=== PATIENT | male | born 1980 | race Caucasian/White ===

== ENCOUNTER → 2016-03-26 | Outpatient (CLI) | payer OTHER ==
--- NOTE | 2016-03-26 15:23 | XR ---
EXAMINATION TYPE: XR foot complete LT DATE OF EXAM: 03/26/2016 3:18 PM CLINICAL HISTORY: pain TECHNIQUE: Frontal, lateral and oblique images of the left foot are obtained. COMPARISON: 01/30/2016 FINDINGS: Postoperative changes of osteotomy again noted involving all 5 digits. K wires have been r emoved from the second and third digits. Fixation plate and screws are noted at the first metatarsoph alangeal joint. Alignment is anatomic. There is no acute fracture/dislocation evident. The joint spac es appear within normal limits. The overlying soft tissue appears unremarkable. IMPRESSION: Postoperative changes as noted.
== END | disposition home or self-care (01) ==
LOC: RADXRMAIN 15:05
PROVIDERS: ATTEND Internal Medicine
DX: M79.672 Pain in left foot (principal); Z98.890 Other specified postprocedural states

== ENCOUNTER 2017-03-31 10:35 | Emergency (ER) | payer OTHER ==
[2017-03-31 10:51] VITALS: TEMP 97.4
[2017-03-31] MEDS ORDERED: KETOROLAC 60 MG/2 ML VIAL IVP STA (11:27)
[2017-03-31] MEDS ORDERED: PROMETHAZINE INJ 25 MG/ML 1 ML VIAL IVPB STA (11:27)
[2017-03-31] MEDS ORDERED: methylPREDNISolone SOD SUCCI 125 MG/2 ML VIAL IV STA (11:27)
[2017-03-31] MEDS ORDERED: diphenhydrAMINE 50 MG/ML 1 ML VIAL IVP STA (11:27)
[2017-03-31] MEDS ORDERED: PROMETHAZINE INJ 25 MG in SODIUM CHLORIDE 0.9% 50 ML IVPB STA (11:30)
--- NOTE | 2017-03-31 11:31 | ED ---
General Adult HPI - General Chief complaint: Headache Stated complaint: Headache Time Seen by Provider: 03/31/17 10:45 Source: patient, RN notes reviewed Mode of arrival: ambulatory Limitations: no limitations - History of Present Illness Initial comments: This is a 36-year-old male who presents emergency department stating that he has had an intermittent headache for months now. Patient states she was here proximal one month ago did get a CAT scan at that time it was negative. Patient states since then he has developed some ear pain bilaterally when saw an urgent care with a flushed in his ears but since then his ear pain is gotten progressively worse. Patient states that he has been put on amoxicillin but that is not improved his symptoms at all. Patient states when he coughs or sneezes he can feels it popping it hurts intensely. Patient states it's more of a frontal headache at this point time. Patient states he also feels very congested. Patient denies any fever chills. Patient does have some tenderness to palpation of his forehead. - Related Data Previous Rx's Medication Instructions Recorded Amoxicillin/Potassium Clav 1 each PO Q12HR #28 tab 03/31/17 [Augmentin 875-125 Tablet] predniSONE 40 mg PO DAILY #12 tab 03/31/17 Allergies Allergy/AdvReac Type Severity Reaction Status Date / Time No Known Allergies Allergy Verified 03/31/17 11:05 Review of Systems ROS Statement: Those systems with pertinent positive or pertinent negative responses have been documented in the HPI. ROS Other: All systems not noted in ROS Statement are negative. Past Medical History Past Medical History: No Reported History Additional Past Medical History / Comment(s): heat stroke summer 2013, migraines History of Any Multi-Drug Resistant Organisms: None Reported Past Surgical History: Orthopedic Surgery, Tonsillectomy Additional Past Surgical History / Comment(s): left foot surgery Past Psychological History: Anxiety, Depression Smoking Status: Current every day smoker Past Alcohol Use History: Occasional Past Drug Use History: None Reported General Exam - General Exam Comments Initial Comments: GENERAL: Patient is well-developed and well-nourished. Patient is nontoxic and well- hydrated and is in moderate distress. Frontal sinuses are tender to palpation ENT: Neck is soft and supple. No significant lymphadenopathy is noted. Oropharynx is clear. Moist mucous membranes. Neck has full range of motion without eliciting any pain. Both TMs are bulging and erythematous more so on the left than the right EYES: The sclera were anicteric and conjunctiva were pink and moist. Extraocular movements were intact and pupils were equal round and reactive to light. Eyelids were unremarkable. PULMONARY: Unlabored respirations. Good breath sounds bilaterally. No audible rales rhonchi or wheezing was noted. CARDIOVASCULAR: There is a regular rate and rhythm without any murmurs gallops or rubs. ABDOMEN: Soft and nontender with normal bowel sounds. No palpable organomegaly was noted. There is no palpable pulsatile mass. SKIN: Skin is clear with no lesions or rashes and otherwise unremarkable. NEUROLOGIC: Patient is alert and oriented x3. Cranial nerves II through XII are grossly intact. Motor and sensory are also intact. Normal speech, volume and content. Symmetrical smile. MUSCULOSKELETAL: Normal extremities with adequate strength and full range of motion. LYMPHATICS: No significant lymphadenopathy is noted PSYCHIATRIC: Normal psychiatric evaluation. Normal interpersonal interactions appears functionally intact in deals appropriately with others. No signs of depression. No signs of anxiety. Limitations: no limitations Course Vital Signs 03/31/17 03/31/17 10:47 13:00 Temperature 97.4 F L Pulse Rate 86 55 L Respiratory 18 16 Rate Blood Pressure 148/83 132/58 O2 Sat by Pulse 98 98 Oximetry Medical Decision Making - Medical Decision Making I will back into reevaluate the patient his headache was considerably better at this point. Disposition Clinical Impression: Sinusitis Disposition: HOME SELF-CARE Condition: Good Instructions: Sinusitis (ED) Prescriptions: Amoxicillin/Potassium Clav [Augmentin 875-125 Tablet] 1 each PO Q12HR #28 tab predniSONE 40 mg PO DAILY #12 tab Referrals: Miah Mcguire MD [Primary Care Provider] - 1-2 days Time of Disposition: 13:10
[2017-03-31 13:04] VITALS: BP 132/58; PULSE 55; RESP 16
== END 2017-03-31 13:22 | disposition home or self-care (01) ==
LOC: EC 10:35
DX: J32.9 Chronic sinusitis, unspecified (principal); F17.200 Nicotine dependence, unspecified, uncomplicated; Z86.69 Personal history of other diseases of the nervous system and sense organs
CPT/HCPCS: 99283; 96374; 96375 ×3; J1200; J2550; J2930; J1885

== ENCOUNTER 2017-08-01 21:08 | Emergency (ER) | payer OTHER ==
[2017-08-01] MEDS ORDERED: SODIUM CHLORIDE 0.9% 1,000 ML IV STA (21:45)
[2017-08-01] MEDS ORDERED: MORPHINE SULFATE 2 MG/ML SYRINGE IV STA (21:45)
[2017-08-01] MEDS ORDERED: ONDANSETRON 4 MG/2 ML VIAL IVP STA (21:45)
[2017-08-01 22:01] LABS: Basophils # (A) 0.1 k/uL (0-0.2); Basophils % (A) 1 %; Eosinophils # (A) 0.5 k/uL (0-0.7); Eosinophils % (A) 4 %; HCT 45.2 % (39.0-53.0); HGB 15.4 gm/dL (13.0-17.5); Lymphocytes # (A) 2.7 k/uL (1.0-4.8); Lymphocytes % (A) 22 %; MCH 30.9 pg (25.0-35.0); MCV 90.8 fL (80.0-100.0); Mean Platelet Volume 7.6; Monocytes # (A) 0.8 k/uL (0-1.0); Monocytes % (A) 6 %; Neutrophils # (A) 7.7 k/uL (1.3-7.7); Neutrophils % (A) 65 %; Platelet Count 258 k/uL (150-450); RBC 4.98 m/uL (4.30-5.90); RDW 13.3 % (11.5-15.5)
[2017-08-01 22:15] LABS: ALT 43 U/L (21-72); AST 29 U/L (17-59); Alkaline Phosphatase 59 U/L (38-126); Amylase 40 U/L (30-110); Anion Gap 13 mmol/L; Blood Urea Nitrogen 19 mg/dL (9-20); Calcium 9.3 mg/dL (8.4-10.2); Carbon Dioxide 24 mmol/L (22-30); Chloride 105 mmol/L (98-107); Glucose 90 mg/dL (74-99); Lipase 54 U/L (23-300); Potassium 4.1 mmol/L (3.5-5.1); Sodium 142 mmol/L (137-145); Total Bilirubin 0.6 mg/dL (0.2-1.3); Total Protein 6.3 g/dL (6.3-8.2)
--- NOTE | 2017-08-01 22:15 | XR ---
EXAMINATION TYPE: XR KUB 2V DATE OF EXAM: 08/01/2017 COMPARISON: NONE HISTORY: Left lower quadrant pain and bloating TECHNIQUE: 2 upright views FINDINGS: There is no pneumoperitoneum. No pneumatosis. The bowel gas pattern is normal. The visualized lung bases and pleural spaces are negative. The abdominopelvic skeletal structures and soft tissues are unremarkable. IMPRESSION: No acute radiographic process.
[2017-08-01 22:41] LABS: Appearance,Urine Clear (Clear); Bilirubin,Urine Negative (Negative); Blood,Urine Negative (Negative); Color,Urine Yellow; Glucose,Urine (UA) Negative (Negative); Ketones,Urine Trace (Negative); Leukocyte Esterase,Urine Negative (Negative); Nitrite,Urine Negative (Negative); Protein,Urine Negative (Negative); Specific Gravity,Urine 1.022 (1.001-1.035); Urobilinogen,Urine <2.0 mg/dL (<2.0)
[2017-08-01 23:23] VITALS: RESP 18
[2017-08-01] MEDS ORDERED: KETOROLAC 30 MG/ML 1 ML VIAL IVP STA (23:45)
--- NOTE | 2017-08-01 23:52 | CT ---
EXAM: CT Abdomen and Pelvis With Intravenous Contrast CLINICAL HISTORY: Left lower quadrant pain TECHNIQUE: Axial computed tomography images of the abdomen and pelvis with intravenous contrast. CTDI is 14.5, 14.2 mGy and DLP is 1228.1 mGy-cm. This CT exam was performed using one or more of the following dose reduction techniques: automated exposure control, adjustment of the mA and/or kV according to patient size, and/or use of iterative reconstruction technique. COMPARISON: CT abdomen and pelvis dated 12/24/2016 FINDINGS: Lung bases: Unremarkable. No mass. No consolidation. ABDOMEN: Liver: Decreased attenuation of the liver which may be phase of IV contrast versus hepatic steatosis. Gallbladder and bile ducts: Unremarkable. Pancreas: Unremarkable. Spleen: Unremarkable. Adrenals: Unremarkable. Kidneys and ureters: Unremarkable. Stomach and bowel: Mildly prominent fluid-filled loops of small bowel seen within the left upper quadrant. Findings may represent nonspecific enteritis. Noninflamed colonic diverticulosis. PELVIS: Appendix: Appendix is unremarkable. Bladder: Unremarkable. Reproductive: Unremarkable as visualized. ABDOMEN and PELVIS: Intraperitoneal space: Unremarkable. Bones/joints: No acute fracture. No dislocation. Soft tissues: Unremarkable. Vasculature: Unremarkable. No abdominal aortic aneurysm. Lymph nodes: Unremarkable. IMPRESSION: Mildly prominent fluid-filled loops of small bowel seen within the left upper quadrant. Findings may represent nonspecific enteritis.
[2017-08-01] MEDS ORDERED: DICYCLOMINE 10 MG/ML 2 ML AMP IM STA (23:55)
--- NOTE | 2017-08-01 23:57 | ED ---
Abdominal Pain HPI - General Chief Complaint: Abdominal Pain Stated Complaint: LLQ pain Time Seen by Provider: 08/01/17 21:32 Source: patient Mode of arrival: ambulatory Limitations: no limitations - History of Present Illness Initial Comments: 36-year-old male patient presents to the emergency department today for evaluation of left-sided abdominal pain. Patient states this started this morning. Patient states he feels bloated and has a lot of gas. Patient states that when he burps or has flatulence that it relieves the pain for a short time but then it comes right back. Patient describes the pain is sharp and stabbing. He denies any radiation of the pain to his back. Denies any fevers or chills. He denies any nausea or vomiting. Patient states he did have one episode of diarrhea this morning. Denies any hematochezia or melena with this. Denies any hematuria, dysuria, urinary frequency, urinary urgency. He denies any radiation of the pain to his groin or testicles. Patient has had no previous abdominal surgeries. Patient denies any recent rash, shortness breath , chest pain, back pain, numbness, tingling, dizziness, weakness, headache, visual changes, or any other complaints. - Related Data Previous Rx's Medication Instructions Recorded Amoxicillin/Potassium Clav 1 each PO Q12HR #28 tab 03/31/17 [Augmentin 875-125 Tablet] predniSONE 40 mg PO DAILY #12 tab 03/31/17 Dicyclomine [Bentyl] 20 mg PO QID #10 tablet 08/01/17 Allergies Allergy/AdvReac Type Severity Reaction Status Date / Time No Known Allergies Allergy Verified 08/01/17 21:31 Review of Systems ROS Statement: Those systems with pertinent positive or pertinent negative responses have been documented in the HPI. ROS Other: All systems not noted in ROS Statement are negative. Past Medical History Past Medical History: No Reported History Additional Past Medical History / Comment(s): heat stroke summer 2013, migraines History of Any Multi-Drug Resistant Organisms: None Reported Past Surgical History: Orthopedic Surgery, Tonsillectomy Additional Past Surgical History / Comment(s): left foot surgery Past Psychological History: Anxiety, Depression Smoking Status: Current every day smoker Past Alcohol Use History: Occasional Past Drug Use History: None Reported General Exam Limitations: no limitations General appearance: alert, in no apparent distress, other (This is a well- developed, well-nourished, adult male patient in no acute distress. Vital signs upon presentation are temperature 98.2F, pulse 99, respirations 20, blood pressure 166/87, pulse ox 99% on room air.) Eye exam: Present: normal appearance, PERRL, EOMI. Absent: scleral icterus, conjunctival injection, periorbital swelling ENT exam: Present: normal exam, normal oropharynx, mucous membranes moist Respiratory exam: Present: normal lung sounds bilaterally. Absent: respiratory distress, wheezes, rales, rhonchi, stridor Cardiovascular Exam: Present: regular rate, normal rhythm, normal heart sounds. Absent: systolic murmur, diastolic murmur, rubs, gallop, clicks GI/Abdominal exam: Present: soft, tenderness (Left-sided abdominal tenderness), normal bowel sounds. Absent: distended, guarding, rebound, rigid Neurological exam: Present: alert, oriented X3, CN II-XII intact Psychiatric exam: Present: normal affect, normal mood Skin exam: Present: warm, dry, intact, normal color. Absent: rash Course Vital Signs 08/01/17 08/01/17 08/02/17 21:28 23:22 00:27 Temperature 98.2 F 97.3 F L 97.1 F L Pulse Rate 99 83 74 Respiratory 20 18 18 Rate Blood Pressure 166/87 116/60 101/56 O2 Sat by Pulse 99 98 97 Oximetry Medical Decision Making - Medical Decision Making 36-year-old male patient presented to the emergency department today for evaluation of left-sided abdominal pain. Physical examination did reveal some left-sided abdominal tenderness. Labs reviewed and showed an elevated white blood cell count at 12.0. Patient did have an episode of diarrhea this morning KUB x-ray of the abdomen was unremarkable. CT the abdomen and pelvis was obtained to rule out diverticulitis. CT did show mildly distended fluid-filled loops of bowel left upper quadrant consistent with a enteritis. I did discuss findings and results with the patient. He was instructed to increase fluids and rest. He'll be given a prescription for Bentyl area is instructed to follow -up with his primary care physician for recheck in 1-2 days. Return parameters discussed in detail. He verbalizes understanding and agrees with this plan. - Lab Data Result diagrams: 08/01/17 21:42 08/01/17 21:42 Lab Results 08/01/17 08/01/17 08/01/17 Range/Units 21:42 21:42 21:50 WBC 12.0 H (3.8-10.6) k/uL RBC 4.98 (4.30-5.90) m/uL Hgb 15.4 (13.0-17.5) gm/dL Hct 45.2 (39.0-53.0) % MCV 90.8 (80.0-100.0) fL MCH 30.9 (25.0-35.0) pg MCHC 34.0 (31.0-37.0) g/dL RDW 13.3 (11.5-15.5) % Plt Count 258 (150-450) k/uL Neutrophils % 65 % Lymphocytes % 22 % Monocytes % 6 % Eosinophils % 4 % Basophils % 1 % Neutrophils # 7.7 (1.3-7.7) k/uL Lymphocytes # 2.7 (1.0-4.8) k/uL Monocytes # 0.8 (0-1.0) k/uL Eosinophils # 0.5 (0-0.7) k/uL Basophils # 0.1 (0-0.2) k/uL Sodium 142 (137-145) mmol/L Potassium 4.1 (3.5-5.1) mmol/L Chloride 105 (98-107) mmol/L Carbon Dioxide 24 (22-30) mmol/L Anion Gap 13 mmol/L BUN 19 (9-20) mg/dL Creatinine 0.90 (0.66-1.25) mg/dL Est GFR (CKD-EPI)AfAm >90 (>60 ml/min/1.73 sqM) Est GFR (CKD-EPI)NonAf >90 (>60 ml/min/1.73 sqM) Glucose 90 (74-99) mg/dL Calcium 9.3 (8.4-10.2) mg/dL Total Bilirubin 0.6 (0.2-1.3) mg/dL AST 29 (17-59) U/L ALT 43 (21-72) U/L Alkaline Phosphatase 59 (38-126) U/L Total Protein 6.3 (6.3-8.2) g/dL Albumin 4.0 (3.5-5.0) g/dL Amylase 40 (30-110) U/L Lipase 54 (23-300) U/L Urine Color Yellow Urine Appearance Clear (Clear) Urine pH 6.0 (5.0-8.0) Ur Specific [place] 1.022 (1.001-1.035) Urine Protein Negative (Negative) Urine Glucose (UA) Negative (Negative) Urine Ketones Trace H (Negative) Urine Blood Negative (Negative) Urine Nitrite Negative (Negative) Urine Bilirubin Negative (Negative) Urine Urobilinogen <2.0 (<2.0) mg/dL Ur Leukocyte Esterase Negative (Negative) - Radiology Data Radiology results: report reviewed, image reviewed 2 views of the abdomen are obtained. Report was reviewed in its entirety. Impression by Dr. Honorio Adams shows no acute radiographic process. CT of the abdomen and pelvis was obtained. Report was reviewed in its entirety. Impression by Dr. Naik show some mildly prominent fluid filled loops of small bowel seen within the left upper quadrant. Findings may represent nonspecific enteritis. Disposition Clinical Impression: Enteritis Disposition: HOME SELF-CARE Condition: Good Instructions: Enteritis (ED) Additional Instructions: Take medications as directed. Increase her fluids. Follow-up with her primary care physician for recheck in 1-2 days. Return here immediately for any new, worsening, or concerning symptoms. Prescriptions: Dicyclomine [Bentyl] 20 mg PO QID #10 tablet Is patient prescribed a controlled substance at d/c from ED?: No Referrals: Miah Mcguire MD [Primary Care Provider] - 1-2 days Time of Disposition: 23:56
[2017-08-02 00:31] VITALS: BP 101/56; PULSE 74; TEMP 97.1
== END 2017-08-02 00:30 | disposition home or self-care (01) ==
LOC: EC 21:08
DX: K52.9 Noninfective gastroenteritis and colitis, unspecified (principal); D72.829 Elevated white blood cell count, unspecified; F17.200 Nicotine dependence, unspecified, uncomplicated
CPT/HCPCS: 36415; 80053; 82150; 83690; 85025; 81003; 74018; 74177; 99284; 96374; 96375 ×2; 96361; 96372; J0500; J2405; J1885; J2270; Q9967

== ENCOUNTER 2018-01-28 06:40 | Emergency (ER) | payer OTHER ==
[2018-01-28 06:48] VITALS: PULSE 79; RESP 18; TEMP 98.2
[2018-01-28] MEDS ORDERED: IBUPROFEN 800 MG TAB PO STA (07:14)
[2018-01-28] MEDS ORDERED: DEXAMETHASONE SOD PHOSPHATE 10 MG/ML 1 ML VIAL IV STA (07:14)
--- NOTE | 2018-01-28 07:18 | ED ---
General Adult HPI - General Chief complaint: Upper Respiratory Infection Stated complaint: Chest Presure Source: patient Mode of arrival: ambulatory - History of Present Illness Initial comments: Dictation was produced using [employer] dictation software. please excuse any grammatical, word or spelling errors. Chief Complaint: 37-year-old male witha past medical history presents with generalized malaise, productive cough History of Present Illness: Is a 37-year-old male states she's been having worsening symptoms or the past week. Patient states his symptoms include productive cough, generalized malaise and difficulty in breathing. Patient states he is also having exertional dyspnea. Patient states he's been feeling feverish and chills. Patient does have history of incarceration however he states he did get SHOTS for tuberculosis. Patient was was at work today however he is feeling ill and came to the emergency department. The ROS documented in this emergency department record has been reviewed and confirmed by me. Those systems with pertinent positive or negative responses have been documented in the HPI. All other systems are other negative and/or noncontributory. - Related Data Home Medications Medication Instructions Recorded Confirmed Loratadine [Claritin] 10 mg PO DAILY 01/28/18 01/28/18 Previous Rx's Medication Instructions Recorded Albuterol Sulfate [Proair Hfa] 1 - 2 puff INHALATION Q6HR PRN #1 01/28/18 inhaler Azithromycin [Zithromax Z-pack] 0 mg PO DIRECTED #6 tab 01/28/18 Allergies Allergy/AdvReac Type Severity Reaction Status Date / Time No Known Allergies Allergy Verified 01/28/18 07:49 Review of Systems ROS Statement: Those systems with pertinent positive or pertinent negative responses have been documented in the HPI. ROS Other: All systems not noted in ROS Statement are negative. Past Medical History Past Medical History: No Reported History Additional Past Medical History / Comment(s): heat stroke summer 2013, migraines History of Any Multi-Drug Resistant Organisms: None Reported Past Surgical History: Orthopedic Surgery, Tonsillectomy Additional Past Surgical History / Comment(s): left foot surgery Past Psychological History: Anxiety, Depression Smoking Status: Current every day smoker Past Alcohol Use History: Occasional Past Drug Use History: None Reported General Exam - General Exam Comments Initial Comments: PHYSICAL EXAM: General Impression: Alert and oriented x3, not in acute distress HEENT: Normocephalic atraumatic, extra-ocular movements intact, pupils equal and reactive to light bilaterally, mucous membranes moist, oropharyngeal erythema Cardiovascular: Heart regular rate and rhythm, S1&S2 audible, no murmurs, rubs or gallops Chest: Mild wheezing to the right middle lobe area posteriorly Abdomen: Bowel sounds present, abdomen soft, non-tender, non-distended, no organomegaly Musculoskeletal: Pulses present and equal in all extremities, no peripheral edema Motor: Power 5/5 bilaterally, no focal deficits noted Neurological: CN II-XII grossly intact, no focal motor or sensory deficits noted Skin: Intact with no visualized rashes Psych: Normal affect and mood Course Vital Signs 01/28/18 06:43 Temperature 98.2 F Pulse Rate 79 Respiratory 18 Rate Blood Pressure 133/84 O2 Sat by Pulse 99 Oximetry Medical Decision Making - Medical Decision Making ED course: 37-year-old male presents with clinical presentation suspicious for URI versus pulmonary infection. Vital signs upon arrival are within acceptable limits.Influenza test negative. Chest x-ray shows no acute processes. Patient' s symptoms likely secondary to pneumonia. Patient given Decadron, Motrin. Patient prescription for Zithromax pack. Given albuterol inhaler when necessary difficulty in breathing. - Lab Data Lab Results 01/28/18 Range/Units 07:25 Influenza Type A RNA Not Detected (Not Detectd) Influenza Type B (PCR) Not Detected (Not Detectd) Disposition Clinical Impression: Pneumonia Disposition: HOME SELF-CARE Instructions: Upper Respiratory Infection (ED) Prescriptions: Albuterol Sulfate [Proair Hfa] 1 - 2 puff INHALATION Q6HR PRN #1 inhaler PRN Reason: Cough Azithromycin [Zithromax Z-pack] 0 mg PO DIRECTED #6 tab Is patient prescribed a controlled substance at d/c from ED?: No Referrals: Gabriel Roman MD [Primary Care Provider] - 1-2 days Time of Disposition: 09:16
--- NOTE | 2018-01-28 08:20 | XR ---
EXAMINATION TYPE: XR chest 2V DATE OF EXAM: 01/28/2018 COMPARISON: Chest x-ray December 06, 2013 HISTORY: Cough and congestion. TECHNIQUE: Frontal and lateral views of the chest are obtained. FINDINGS: There is no focal air space opacity, pleural effusion, or pneumothorax seen. The cardiac silhouette size is within normal limits. The osseous structures are intact. IMPRESSION: No new suspicious acute infiltrate is identified. No significant change from prior.
[2018-01-28 09:37] VITALS: BP 122/70
== END 2018-01-28 09:35 | disposition home or self-care (01) ==
LOC: EC 06:40 → SUPCPDRO 06:40 → EC 09:35
DX: J18.9 Pneumonia, unspecified organism (principal); F17.200 Nicotine dependence, unspecified, uncomplicated; Z79.899 Other long term (current) drug therapy
CPT/HCPCS: 71046; 87502; 96374; 99285

== ENCOUNTER 2018-03-27 19:15 | Observation (INO) | payer OTHER ==
[2018-03-27] MEDS ORDERED: DICYCLOMINE 20 MG TAB ONE (20:47)
[2018-03-27] MEDS ORDERED: MORPHINE SULFATE 4 MG/ML SYRINGE ONE ×2 (20:47)
[2018-03-28] MEDS ORDERED: LIDOCAINE VISCOUS 2% 15 ML CUP ONE (00:10)
[2018-03-28] MEDS ORDERED: MAG HYDROX/AL HYDROX/SIMETH 30 ML CUP ONE (00:10)
[2018-03-28] MEDS ORDERED: HYDROmorphone 1 MG/ML 1 ML SYRINGE ONE (00:10)
[2018-03-28] MEDS ORDERED: DICYCLOMINE 20 MG TAB ONE (00:10)
[2018-03-28] MEDS ORDERED: CIMETIDINE HCL 300 MG/5 ML ONE (00:10)
[2018-03-28] MEDS ORDERED: HYOSCYAMINE ELIXIR 250 MCG/10 ML BTL ONE (00:10)
[2018-03-28] MEDS ORDERED: HYDROmorphone 1 MG/ML 1 ML SYRINGE IVP PRN (06:00)
[2018-03-28] MEDS: HYDROmorphone 1 MG/ML 1 ML SYRINGE IVP PRN ×5 (06:10→23:12)
[2018-03-28] MEDS ORDERED: ACETAMINOPHEN TAB 325 MG TAB PO PRN (06:14)
[2018-03-28] MEDS ORDERED: IBUPROFEN 400 MG TAB PO PRN (06:15)
[2018-03-28] MEDS ORDERED: SODIUM CHLORIDE 0.9% 1,000 ML IV SCH (06:15)
[2018-03-28] MEDS: SODIUM CHLORIDE 0.9% 1,000 ML IV SCH ×3 (06:15→23:12)
[2018-03-28] MEDS ORDERED: ONDANSETRON 4 MG/2 ML VIAL IVP PRN (06:18)
[2018-03-28] MEDS ORDERED: PROMETHAZINE 25 MG TAB PO PRN (06:18)
[2018-03-28] MEDS ORDERED: NALOXONE 0.4 MG/ML 1 ML VIAL IV PRN (06:20)
[2018-03-28 06:41] VITALS: BMI 30.4
[2018-03-28 07:08] LABS: Basophils # (A) 0.1 k/uL (0-0.2); Basophils % (A) 1 %; Eosinophils # (A) 0.2 k/uL (0-0.7); Eosinophils % (A) 2 %; HCT 44.9 % (39.0-53.0); HGB 15.3 gm/dL (13.0-17.5); Lymphocytes # (A) 1.5 k/uL (1.0-4.8); Lymphocytes % (A) 14 %; MCH 31.9 pg (25.0-35.0); MCHC 34.1 g/dL (31.0-37.0); MCV 93.7 fL (80.0-100.0); Mean Platelet Volume 7.5; Monocytes # (A) 0.4 k/uL (0-1.0); Monocytes % (A) 4 %; Neutrophils # (A) 8.3 k/uL (1.3-7.7); Neutrophils % (A) 78 %; Platelet Count 289 k/uL (150-450); RDW 12.9 % (11.5-15.5); WBC 10.6 k/uL (3.8-10.6)
[2018-03-28 08:12] LABS: ALT 49 U/L (21-72); AST 30 U/L (17-59); Albumin 4.4 g/dL (3.5-5.0); Alkaline Phosphatase 66 U/L (38-126); Anion Gap 8 mmol/L; Blood Urea Nitrogen 11 mg/dL (9-20); Calcium 9.6 mg/dL (8.4-10.2); Carbon Dioxide 25 mmol/L (22-30); Chloride 105 mmol/L (98-107); Glucose 139 mg/dL (74-99); Potassium 4.7 mmol/L (3.5-5.1); Sodium 138 mmol/L (137-145); Total Bilirubin 0.7 mg/dL (0.2-1.3); Total Protein 7.1 g/dL (6.3-8.2)
[2018-03-28 09:09] LABS: Appearance,Urine Clear (Clear); Bilirubin,Urine Negative (Negative); Blood,Urine Negative (Negative); Color,Urine Light Yellow; Glucose,Urine (UA) Negative (Negative); Ketones,Urine Negative (Negative); Leukocyte Esterase,Urine Negative (Negative); Nitrite,Urine Negative (Negative); PH, Urine 5.5 (5.0-8.0); Protein,Urine Negative (Negative); RBC,Urine <1 /hpf (0-5); Specific Gravity,Urine 1.006 (1.001-1.035); Squamous Epithelial Cell,Urine <1 /hpf (0-4); Urobilinogen,Urine <2.0 mg/dL (<2.0); WBC,Urine <1 /hpf (0-5)
[2018-03-28 09:15] LABS: Anion Gap 6 mmol/L; Blood Urea Nitrogen 9 mg/dL (9-20); Calcium 8.8 mg/dL (8.4-10.2); Carbon Dioxide 28 mmol/L (22-30); Chloride 103 mmol/L (98-107); Glucose 84 mg/dL (74-99); Potassium 4.2 mmol/L (3.5-5.1); Sodium 137 mmol/L (137-145)
--- NOTE | 2018-03-28 09:43 | CT ---
CT scan abdomen and pelvis. History abdominal pain. Gas and bloating. Comparison none. TECHNIQUE: Multiple axial sections were obtained from the diaphragm to the floor the pelvis with no contrast. FINDINGS: The lung bases are clear. There is no pleural effusion. There is a small hiatal hernia. Liver spleen pancreas gallbladder appear normal. Bile ducts are not dilated. There is no adrenal mass . The kidneys show normal size and contour. There is no hydronephrosis. There is no evidence of a suhail al calculus. There is no retroperitoneal adenopathy. Ureters are not dilated. Bladder distends smoothly. There is no inguinal hernia. There is no ascites. There is no evidence of free air. I see no intestinal wall t hickening. There is no mesenteric edema. The appendix appears normal. Lumbar vertebra have normal spacing and alignment. Posterior elements are intact. Facet joints are in tact. I see no bony destructive process. IMPRESSION: Negative CT scan of the abdomen and pelvis. Normal appendix. No evidence of renal stone or obstructio n.
--- NOTE | 2018-03-28 09:43 | XR ---
EXAMINATION TYPE: Acute abdominal series DATE OF EXAM: 03/27/2018 COMPARISON: Chest 01/28/2018 and KUB 08/01/2017 HISTORY: 37-year-old male left-sided abdominal pain FINDINGS: Frontal view of the chest shows normal heart size, aorta, and pulmonary vasculature. There is peribro nchial cuffing and some patchy opacity right upper lobe. No consolidation or pleural effusion. No evidence for free intraperitoneal air. Scattered air-fluid levels within the colon. No dilated small bowel loops. No significant stool burde n. No suspicious calcifications seen. IMPRESSION: 1. Interstitial changes in the lungs could represent bronchitis or asthma. Density is more focal in t he right upper lobe. Correlate for possible early developing infiltrate. 2. Scattered colonic air-fluid levels suggest enteritis or ileus. No evidence for bowel obstruction o r free air.
[2018-03-28 09:44] LABS: Basophils # (A) 0.1 k/uL (0-0.2); Basophils % (A) 1 %; Eosinophils # (A) 0.2 k/uL (0-0.7); Eosinophils % (A) 2 %; HCT 44.2 % (39.0-53.0); HGB 14.7 gm/dL (13.0-17.5); Lymphocytes # (A) 2.6 k/uL (1.0-4.8); Lymphocytes % (A) 28 %; MCH 31.5 pg (25.0-35.0); MCHC 33.2 g/dL (31.0-37.0); MCV 94.6 fL (80.0-100.0); Mean Platelet Volume 7.5; Monocytes # (A) 0.5 k/uL (0-1.0); Monocytes % (A) 6 %; Neutrophils # (A) 5.7 k/uL (1.3-7.7); Neutrophils % (A) 61 %; Platelet Count 282 k/uL (150-450); RBC 4.67 m/uL (4.30-5.90); RDW 12.8 % (11.5-15.5); WBC 9.3 k/uL (3.8-10.6)
--- NOTE | 2018-03-28 10:51 | P.HPIM ---
History of Present Illness H&P Date: 03/28/18 Chief Complaint: abdominal pain HPI: This is a 37-year-old male patient being seen examined and evaluated today while covering for Dr. Miah Mcguire. This patient came into the emergency room about 5:30 PM last night. He had severe abdominal pain had been ongoing for the last day. The patient states he normally has bowel movements daily and he has not had a bowel movement in 3 days. A x-ray of the abdomen was obtained and did show scattered colonic air possibly enteritis or ileus. A CT of the abdomen was negative. The patient states that he gets so bloated and full of gas and his epigastric area more so on his left side becomes excruciating in pain. He is able to pass a little bit of gas in occasionally burp and he is given slight relief however not complete relief. And approximately 5-10 minutes after passing gas the pain comes back just the same, and is just as severe. He occasionally has some nausea has had no vomiting. Denies any fevers or chills at this time. He has never had abdominal pain like this in the past. Review of Systems 14 point review of systems was completed and is negative unless noted above in the HPI Past Medical History Past Medical History: No Reported History Additional Past Medical History / Comment(s): heat stroke summer 2013, migraines History of Any Multi-Drug Resistant Organisms: None Reported Past Surgical History: Orthopedic Surgery, Tonsillectomy Additional Past Surgical History / Comment(s): left foot surgery Past Psychological History: Anxiety, Depression Smoking Status: Current every day smoker Past Alcohol Use History: Occasional Past Drug Use History: None Reported Medications and Allergies Home Medications Medication Instructions Recorded Confirmed Type Albuterol Sulfate [Proair Hfa] 1 - 2 puff INHALATION Q6HR PRN #1 01/28/18 Rx inhaler Azithromycin [Zithromax Z-pack] 0 mg PO DIRECTED #6 tab 01/28/18 Rx Loratadine [Claritin] 10 mg PO DAILY 01/28/18 01/28/18 History Allergies Allergy/AdvReac Type Severity Reaction Status Date / Time No Known Allergies Allergy Verified 01/28/18 07:49 Physical Exam Vitals: Vital Signs Temp Pulse Resp BP Pulse Ox 03/28/18 07:18 98.0 F 58 L 16 122/69 96 03/28/18 05:47 97.8 F 52 L 18 148/90 100 Intake and Output 03/27/18 03/28/18 03/28/18 22:59 06:59 14:59 Other: Weight 110.45 kg GENERAL EXAM: Alert, active, comfortable mild apparent distress, later to pain. HEAD: Normocephalic. EYES: Normal reaction of pupils, equal size. NOSE: Clear with pink turbinates. THROAT: No erythema or exudates. NECK: No masses, no JVD. CHEST: No chest wall deformity. LUNGS: Equal air entry with no crackles, wheeze, rhonchi or dullness. CVS: S1 and S2 normal with no audible mumurs, regular rhythm. ABDOMEN: No hepatosplenomegaly, normal bowel sounds, does have guarding and is tender more so in the epigastric left side EXTREMITIES: No edema noted, pedal pulses palpable. CENTRAL NERVOUS SYSTEM: No focal deficits, tone is normal in all 4 extremities. Results CBC & Chem 7: 03/28/18 08:07 03/28/18 08:07 Labs: Abnormal Lab Results - Last 24 Hours (Table) 03/27/18 03/27/18 Range/Units 19:20 19:20 Neutrophils # 8.3 H (1.3-7.7) k/uL Glucose 139 H (74-99) mg/dL Abdominal x-ray: report reviewed CT scan - abdomen: report reviewed Thrombosis Risk Factor Assmnt - DVT/VTE Prophylaxis DVT/VTE Prophylaxis: Low risk, early ambulation encouraged - Choose All That Apply Any of the Below Risk Factors Present?: No Assessment and Plan Assessment: Assessment Abdominal pain Possible ileus Nicotine dependence Plan Medications have been reviewed and will be continued as ordered. Surgical consult appreciate recommendations Clear liquid diet further recommendations per surgery Continue with pulmonary hygiene, coughing and deep breathing exercises, and supportive care. Supplemental oxygen to maintain oxygen saturations of 92% or better. GI and DVT prophylaxis. Pepcid, SCDs and early ambulation We will continue to monitor labs/results and adjust treatment as necessary. Further recommendations pending. I, the signing physician performed an examination of the patient, discussed and directed their management with the nurse practitioner. I have reviewed the nurse practitioner's note and agree with the documented findings, orders and plan of care. Nurse practitioner acting as a scribe for the signing physician. Please note we are covering for Dr. Miah Mcguire today.
[2018-03-28 10:57] LABS: Amylase 32 U/L (30-110); Lipase 80 U/L (23-300)
[2018-03-28] MEDS: FAMOTIDINE 20 MG TAB PO SCH ×2 (11:31→20:59)
--- NOTE | 2018-03-28 12:40 | P.GSCN ---
History of Present Illness Consult date: 03/28/18 Reason for Consult: Abdominal pain History of present illness: The patient's a 37-year-old man who presented to the emergency department with complaints of abdominal pain. The pain that started about a day previous but in beginning progressively worse. He feels like he is extremely bloated, feels like an elephant on his abdomen. He's had some occasional episodes of this in the past 6 or 8 months. We will typically last 2-3 days and then get better. He has not had a bowel movement in about 3 days. This morning he was feeling better and was walking in the halls.Now he is getting severe pain in bloating again. He's passed a small amount of flatus earlier. Nothing today. He is belching a little bit. Denies any blood in the stools or dark tarry stools. Denies any family history of inflammatory bowel disease, colon polyps, colon cancer. Denies fevers or chills. Review of Systems All systems: negative Past Medical History Past Medical History: No Reported History Additional Past Medical History / Comment(s): heat stroke summer 2013, migraines History of Any Multi-Drug Resistant Organisms: None Reported Past Surgical History: Orthopedic Surgery, Tonsillectomy Additional Past Surgical History / Comment(s): left foot surgery Past Psychological History: Anxiety, Depression Smoking Status: Current every day smoker Past Alcohol Use History: Occasional Past Drug Use History: None Reported Medications and Allergies Home Medications Medication Instructions Recorded Confirmed Type Albuterol Sulfate [Proair Hfa] 1 - 2 puff INHALATION Q6HR PRN #1 01/28/18 Rx inhaler Azithromycin [Zithromax Z-pack] 0 mg PO DIRECTED #6 tab 01/28/18 Rx Loratadine [Claritin] 10 mg PO DAILY 01/28/18 01/28/18 History Allergies Allergy/AdvReac Type Severity Reaction Status Date / Time No Known Allergies Allergy Verified 01/28/18 07:49 Surgical - Exam Osteopathic Statement: *. No significant issues noted on an osteopathic structural exam other than those noted in the History and Physical/Consult. Vital Signs Temp Pulse Resp BP Pulse Ox 97.8 F 52 L 18 148/90 100 03/28/18 05:47 03/28/18 05:47 03/28/18 05:47 03/28/18 05:47 03/28/18 05:47 - General Appears uncomfortable and is moving around a lot in bed well developed, well nourished - Eyes normal ocular movement - ENT normal mucosa - Neck trachea midline, no lymphadectomy - Respiratory normal respiratory effort, clear to auscultation - Cardiovascular Rhythm: regular - Abdomen Abdomen: soft, tender (Left lower quadrant), guarding (Mild), no rigid, no rebound, distended (Mildly distended and tympanitic in the upper abdomen) Results - Labs 03/28/18 08:07 03/28/18 08:07 Abnormal Lab Results - Last 24 Hours (Table) 03/27/18 03/27/18 Range/Units 19:20 19:20 Neutrophils # 8.3 H (1.3-7.7) k/uL Glucose 139 H (74-99) mg/dL Microbiology - Last 24 Hours (Table) 03/27/18 19:41 Group A Strep Throat Culture - Preliminary Throat Diabetes panel 03/27/18 03/28/18 Range/Units 19:20 08:07 Sodium 138 137 (137-145) mmol/L Potassium 4.7 4.2 (3.5-5.1) mmol/L Chloride 105 103 (98-107) mmol/L Carbon Dioxide 25 28 (22-30) mmol/L BUN 11 9 (9-20) mg/dL Creatinine 0.81 0.71 (0.66-1.25) mg/dL Glucose 139 H 84 (74-99) mg/dL Calcium 9.6 8.8 (8.4-10.2) mg/dL AST 30 (17-59) U/L ALT 49 (21-72) U/L Alkaline Phosphatase 66 (38-126) U/L Total Protein 7.1 (6.3-8.2) g/dL Albumin 4.4 (3.5-5.0) g/dL Calcium panel 03/27/18 03/28/18 Range/Units 19:20 08:07 Calcium 9.6 8.8 (8.4-10.2) mg/dL Albumin 4.4 (3.5-5.0) g/dL Pituitary panel 03/27/18 03/28/18 Range/Units 19:20 08:07 Sodium 138 137 (137-145) mmol/L Potassium 4.7 4.2 (3.5-5.1) mmol/L Chloride 105 103 (98-107) mmol/L Carbon Dioxide 25 28 (22-30) mmol/L BUN 11 9 (9-20) mg/dL Creatinine 0.81 0.71 (0.66-1.25) mg/dL Glucose 139 H 84 (74-99) mg/dL Calcium 9.6 8.8 (8.4-10.2) mg/dL Adrenal panel 03/27/18 03/28/18 Range/Units 19:20 08:07 Sodium 138 137 (137-145) mmol/L Potassium 4.7 4.2 (3.5-5.1) mmol/L Chloride 105 103 (98-107) mmol/L Carbon Dioxide 25 28 (22-30) mmol/L BUN 11 9 (9-20) mg/dL Creatinine 0.81 0.71 (0.66-1.25) mg/dL Glucose 139 H 84 (74-99) mg/dL Calcium 9.6 8.8 (8.4-10.2) mg/dL Total Bilirubin 0.7 (0.2-1.3) mg/dL AST 30 (17-59) U/L ALT 49 (21-72) U/L Alkaline Phosphatase 66 (38-126) U/L Total Protein 7.1 (6.3-8.2) g/dL Albumin 4.4 (3.5-5.0) g/dL - Imaging CT scan - abdomen: report reviewed Assessment and Plan (1) Abdominal pain Current Visit: Yes Status: Acute Code(s): R10.9 - UNSPECIFIED ABDOMINAL PAIN SNOMED Code(s): 65281202 (2) Constipation Current Visit: Yes Status: Acute Code(s): K59.00 - CONSTIPATION, UNSPECIFIED SNOMED Code(s): 77321509 Plan: His symptoms are concerning for diverticulitis. I cannot personally review the CT films at this time. Recommend empirically giving him antibiotics. We'll give him something to get the bowels moving. Keep him on clear liquids at this point since his bloated. He'll likely need outpatient colonoscopy since he's had these episodes intermittently. I'll check on him later today and in the morning. Further recommendations to follow.
[2018-03-28] MEDS ORDERED: BISACODYL 5 MG TABLET.DR PO STA (12:41)
[2018-03-28] MEDS: HYDROcodone/APAP 5-325MG 1 EACH TAB PO PRN ×2 (13:07→17:53)
[2018-03-28] MEDS: metroNIDAZOLE-NS PMX 500 MG in SALINE 1 100ML.BAG IVPB SCH ×2 (16:09→23:11)
[2018-03-28] MEDS: KETOROLAC 30 MG/ML 1 ML VIAL IVP SCH ×2 (17:39→23:11)
[2018-03-28] MEDS: PIPERACILLIN-TAZOBACTAM 3.375 GM in SODIUM CHLORIDE 0.9% 100 ML IVPB SCH (17:40)
[2018-03-29] MEDS: PIPERACILLIN-TAZOBACTAM 3.375 GM in SODIUM CHLORIDE 0.9% 100 ML IVPB SCH ×4 (00:45→23:52)
[2018-03-29] MEDS: HYDROcodone/APAP 5-325MG 1 EACH TAB PO PRN ×4 (00:45→23:51)
[2018-03-29] MEDS: KETOROLAC 30 MG/ML 1 ML VIAL IVP SCH ×4 (06:04→23:51)
--- NOTE | 2018-03-29 07:08 | XR ---
EXAMINATION TYPE: XR abdomen 2V DATE OF EXAM: 03/29/2018 HISTORY: Pain. Technique: 2 views of the abdomen are submitted. Comparison: August 01, 2017 Findings: There is no convincing evidence of pneumoperitoneum. The Bowel gas pattern is nonspecific and nonobstructive. No sizable air-fluid levels are seen. No mass effects are noted. No renal calcifications are identified. IMPRESSION: 1. Nonspecific nonobstructive bowel gas pattern
[2018-03-29 07:21] LABS: Basophils % (A) 1 %; Eosinophils # (A) 0.3 k/uL (0-0.7); Eosinophils % (A) 4 %; HCT 39.1 % (39.0-53.0); HGB 13.2 gm/dL (13.0-17.5); Lymphocytes # (A) 2.8 k/uL (1.0-4.8); Lymphocytes % (A) 41 %; MCH 31.7 pg (25.0-35.0); MCHC 33.8 g/dL (31.0-37.0); Mean Platelet Volume 7.3; Monocytes # (A) 0.4 k/uL (0-1.0); Monocytes % (A) 6 %; Neutrophils # (A) 3.1 k/uL (1.3-7.7); Neutrophils % (A) 46 %; Platelet Count 249 k/uL (150-450); RBC 4.16 m/uL (4.30-5.90); RDW 12.9 % (11.5-15.5); WBC 6.7 k/uL (3.8-10.6)
[2018-03-29 07:31] LABS: ALT 40 U/L (21-72); AST 17 U/L (17-59); Albumin 2.9 g/dL (3.5-5.0); Alkaline Phosphatase 51 U/L (38-126); Anion Gap 2 mmol/L; Blood Urea Nitrogen 11 mg/dL (9-20); Calcium 8.1 mg/dL (8.4-10.2); Carbon Dioxide 26 mmol/L (22-30); Chloride 111 mmol/L (98-107); Glucose 82 mg/dL (74-99); Potassium 4.5 mmol/L (3.5-5.1); Sodium 139 mmol/L (137-145); Total Bilirubin 0.4 mg/dL (0.2-1.3); Total Protein 5.1 g/dL (6.3-8.2)
[2018-03-29] MEDS: FAMOTIDINE 20 MG TAB PO SCH ×2 (07:48→20:06)
[2018-03-29] MEDS: HYDROmorphone 1 MG/ML 1 ML SYRINGE IVP PRN ×5 (07:48→22:29)
[2018-03-29] MEDS: metroNIDAZOLE-NS PMX 500 MG in SALINE 1 100ML.BAG IVPB SCH ×3 (07:50→22:38)
[2018-03-29] MEDS: SODIUM CHLORIDE 0.9% 1,000 ML IV SCH ×3 (07:51→22:30)
--- NOTE | 2018-03-29 10:38 | P.PN ---
Subjective Progress Note Date: 03/29/18 The patient seen on rounds. He did have a very small loose bowel movement yesterday. Still feels like there is a lot of gas pressure. Passing very small amounts of flatus. Overall his pain is better. No nausea. His hungry. Objective - Vital Signs Vital signs: Vital Signs Temp 97.7 F 03/29/18 07:44 Pulse 65 03/29/18 07:50 Resp 17 03/29/18 07:50 BP 118/68 03/29/18 07:44 Pulse Ox 99 03/29/18 07:44 Intake & Output 03/28/18 03/29/18 03/29/18 18:59 06:59 18:59 Intake Total 3250 1220 Balance 3250 1220 Intake: Intake, IV Titration 750 1100 Amount Piperacillin-Tazobactam 3 100 .375 gm In Sodium Chloride 0.9% 100 ml @ 25 mls/hr IVPB Q8HR ANDRES Rx# :[id number] Sodium Chloride 0.9% 1, 750 1000 000 ml @ 125 mls/hr IV . Q8H ANDRES Rx#:[id number] Oral 2500 120 Other: # Voids 2 - Constitutional General appearance: Present: cooperative - Gastrointestinal General gastrointestinal: Present: normal bowel sounds, soft. Absent: distended , tenderness - Labs CBC & Chem 7: 03/29/18 06:44 03/29/18 06:44 Labs: Abnormal Lab Results - Last 24 Hours (Table) 03/29/18 03/29/18 Range/Units 06:44 06:44 RBC 4.16 L (4.30-5.90) m/uL Chloride 111 H (98-107) mmol/L Calcium 8.1 L (8.4-10.2) mg/dL Total Protein 5.1 L (6.3-8.2) g/dL Albumin 2.9 L (3.5-5.0) g/dL Microbiology - Last 24 Hours (Table) 03/27/18 19:41 Group A Strep Throat Culture - Preliminary Throat - Imaging and Cardiology Abdominal x-ray: report reviewed, image reviewed Assessment and Plan (1) Abdominal pain Current Visit: Yes Status: Acute Code(s): R10.9 - UNSPECIFIED ABDOMINAL PAIN SNOMED Code(s): 52154566 (2) Constipation Current Visit: Yes Status: Acute Code(s): K59.00 - CONSTIPATION, UNSPECIFIED SNOMED Code(s): 79486228 Plan: We'll give him a dose of milk of magnesia. Slowly start him on a diet. Hopefully discharge within the next 24-48 hours. He should have outpatient colonoscopy.
[2018-03-29] MEDS: MAGNESIUM HYDROXIDE 2,400 MG/10 ML CUP PO PRN ×2 (10:59→17:35)
--- NOTE | 2018-03-29 12:26 | PN ---
PROGRESS NOTE SUBJECTIVE: This is a 37-year-old white male came in with left lower quadrant abdominal pain. He has severe amounts of gas pressure. He states no nausea. He states he is hungry but still having left lower quadrant abdominal pain. GI exam shows increased bowel sounds x4 quadrants. Blood pressure 118/68, O2 of 99, pulse 76, respiratory rate 17, temp 97.7. CARDIOVASCULAR: S1, S2. Lungs are clear. GI: As mentioned above. White count 6.7, hemoglobin is 13.2, BUN 11, creatinine 0.76. Calcium is 8.1, albumin is 2.9. ASSESSMENT: 1. Acute abdominal pain, possible gastroenteritis. 2. Constipation. 3. Possible diverticulitis. He is going to have an outpatient colonoscopy. They gave him milk of magnesia and start him on a regular diet. Possible discharge home to follow up as an outpatient for colonoscopy, if improves. His abdominal x-ray for today shows no pneumoperitoneum, nonspecific nonobstructive bowel pattern. No air-fluid levels. No mass effect. Advanced diet. Possible discharge home. Follow up as an outpatient. Continue with IV antibiotics. MMODL / IJN: [id number] /
[2018-03-29] MEDS: MAG HYDROX/AL HYDROX/SIMETH 30 ML CUP PO PRN ×2 (12:54→17:35)
[2018-03-29] MEDS ORDERED: MAGNESIUM HYDROXIDE 2,400 MG/10 ML CUP PO PRN (17:24)
[2018-03-29] MEDS ORDERED: MAGNESIUM CITRATE 296 ML BOTTLE PO ONE (20:00)
[2018-03-30] MEDS: HYDROmorphone 1 MG/ML 1 ML SYRINGE IVP PRN ×5 (03:02→19:31)
[2018-03-30] MEDS: HYDROcodone/APAP 5-325MG 1 EACH TAB PO PRN ×3 (04:46→13:59)
[2018-03-30] MEDS: SODIUM CHLORIDE 0.9% 1,000 ML IV SCH ×3 (06:27→23:02)
[2018-03-30] MEDS: KETOROLAC 30 MG/ML 1 ML VIAL IVP SCH ×3 (06:27→17:18)
[2018-03-30] MEDS: metroNIDAZOLE-NS PMX 500 MG in SALINE 1 100ML.BAG IVPB SCH ×3 (07:39→23:02)
[2018-03-30] MEDS: PIPERACILLIN-TAZOBACTAM 3.375 GM in SODIUM CHLORIDE 0.9% 100 ML IVPB SCH ×2 (07:40→15:54)
[2018-03-30] MEDS: FAMOTIDINE 20 MG TAB PO SCH ×2 (07:42→19:30)
--- NOTE | 2018-03-30 09:41 | P.PN ---
Subjective Progress Note Date: 03/30/18 Principal diagnosis: Abdominal pain The patient seen on rounds. He did have a moderate bowel movement last night after 2 doses of milk of magnesia and a bottle of magnesium citrate. It is scant amount of loose stool this morning. Continuing to complain about a lot of bloating and pressure. No nausea or vomiting. He is 75% of his breakfast. Objective - Vital Signs Vital signs: Vital Signs Temp 97.5 F L 03/30/18 07:42 Pulse 60 03/30/18 07:42 Resp 16 03/30/18 07:42 BP 134/78 03/30/18 07:42 Pulse Ox 99 03/30/18 07:42 Intake & Output 03/29/18 03/30/18 03/30/18 18:59 06:59 18:59 Other: # Voids 3 - Constitutional General appearance: Present: cooperative, no acute distress - Respiratory Respiratory: bilateral: CTA - Gastrointestinal Gastrointestinal Comment(s): Abdomen is very soft. Bowel sounds are good. No tympany to percussion. General gastrointestinal: Present: normal bowel sounds, soft, tenderness (Mild suprapubic and right lower quadrant). Absent: distended - Labs CBC & Chem 7: 03/29/18 06:44 03/29/18 06:44 Assessment and Plan (1) Abdominal pain Current Visit: Yes Status: Acute Code(s): R10.9 - UNSPECIFIED ABDOMINAL PAIN SNOMED Code(s): 34187495 (2) Constipation Current Visit: Yes Status: Acute Code(s): K59.00 - CONSTIPATION, UNSPECIFIED SNOMED Code(s): 05264207 Plan: So far the patient's workup has been normal. No evidence of ileus on abdominal series or computed tomography scan. His chemistry and CBC have been normal. Urine on admission was normal. Still think this may be a mild diverticulitis. This could also be an epiploic appendagitis. This can cause abdominal pain but no leukocytosis and CT is usually unremarkable. I'd recommend a soft diet and schedule an outpatient colonoscopy in 2-4 weeks.
[2018-03-30 10:44] LABS: Appearance,Urine Clear (Clear); Bilirubin,Urine Negative (Negative); Blood,Urine Negative (Negative); Color,Urine Colorless; Glucose,Urine (UA) Negative (Negative); Ketones,Urine Negative (Negative); Leukocyte Esterase,Urine Negative (Negative); Nitrite,Urine Negative (Negative); PH, Urine 6.5 (5.0-8.0); Protein,Urine Negative (Negative); Specific Gravity,Urine 1.001 (1.001-1.035); Urobilinogen,Urine <2.0 mg/dL (<2.0)
[2018-03-30] MEDS: DICYCLOMINE 20 MG TAB PO PRN (19:30)
[2018-03-31] MEDS: PIPERACILLIN-TAZOBACTAM 3.375 GM in SODIUM CHLORIDE 0.9% 100 ML IVPB SCH ×3 (00:27→17:51)
[2018-03-31] MEDS: KETOROLAC 30 MG/ML 1 ML VIAL IVP SCH ×4 (00:27→17:51)
[2018-03-31] MEDS: HYDROmorphone 1 MG/ML 1 ML SYRINGE IVP PRN ×6 (00:28→22:40)
--- NOTE | 2018-03-31 05:18 | PN ---
PROGRESS NOTE SUBJECTIVE: This is a 37-year-old white male with abdominal pain, gastroenteritis. He is on IV Zosyn and Flagyl. CAT scan and ultrasound of his abdomen are both negative. Possibly discharge home on oral antibiotics once he is able to tolerate any food or liquids. He has got severe watery diarrhea at this time. Vital signs stable. Afebrile. CARDIOVASCULAR: S1, S2. LUNGS: Clear. GI: Increased bowel sounds x4. Await surgical recommendations. Await for GI recommendations, but patient appears to be slowly improving. Labs showed normal sodium, potassium, and BUN, creatinine, and normal amylase and lipase. Possible discharge home in the next 24 to 48 hours. MMODL / IJN: [id number] /
--- NOTE | 2018-03-31 05:31 | P.CONS ---
History of Present Illness - Reason for Consult Consult date: 03/30/18 Abdominal pain Requesting physician: Miah Mcguire - Chief Complaint Abdominal pain - History of Present Illness The patient is a pleasant 37-year-old male with a medical history significant for migraines who presented to the hospital with complaints of abdominal pain. The patient reports that he has intermittently had episodes of abdominal pain over the past 4 years. He reports that these episodes are infrequent and have occurred approximately 8 times total over the 4 years. He reports that when the pain occurs. It is intense pain in the abdomen, particularly the left side of his abdomen with radiation into his pelvis and groin. He describes the sensation of bloating and distention during these episodes. He has gained some degree of relief with dicyclomine in the past and with belching. He reports that at baseline he has 2-3 bowel movements daily which are nonbloody. He denies any significant history in his family of GI pathology. He does consume a large amount of fruits and vegetables and lactose products at baseline. On presentation to the emergency department the patient had a computed tomography scan of the abdomen and pelvis which were negative for any intra-abdominal pathology. He isn't. He was started on antibiotic therapy for possible diverticulitis or an enteritis. Review of Systems REVIEW OF SYSTEMS: CONSTITUTIONAL: Denies any fevers, chills, weight change or fatigue. CARDIOVASCULAR: Denies any chest pain, palpitations high or low blood pressures RESPIRATORY: Denies any shortness of breath, hemoptysis or cough. GENITOURINARY: No dysuria or hematuria. MUSCULOSKELETAL: No weakness reported. SKIN: Denies any new rashes or lesions, jaundice or pallor. PSYCHIATRIC: Denies any depression or anxiety. NEUROLOGY: Denies headache currently but does have a history of migraines, denies any new focal deficits. EARS/NOSE/THROAT: No recent hearing change, congestion, nasal discharge or sore throat. EYES: No pain in eyes, discharge or change in vision. GASTROINTESTINAL: As per HPI. Past Medical History Past Medical History: No Reported History Additional Past Medical History / Comment(s): heat stroke summer 2013, migraines History of Any Multi-Drug Resistant Organisms: None Reported Past Surgical History: Orthopedic Surgery, Tonsillectomy Additional Past Surgical History / Comment(s): left foot surgery Past Psychological History: Anxiety, Depression Smoking Status: Current every day smoker Past Alcohol Use History: Occasional Past Drug Use History: None Reported Additional History: Past family history: Reviewed with the patient and noncontributory to current medical presentation, denies any significant history of GI pathology. Medications and Allergies Home Medications Medication Instructions Recorded Confirmed Type Albuterol Sulfate [Proair Hfa] 1 - 2 puff INHALATION Q6HR PRN #1 01/28/18 Rx inhaler Azithromycin [Zithromax Z-pack] 0 mg PO DIRECTED #6 tab 01/28/18 Rx Loratadine [Claritin] 10 mg PO DAILY 01/28/18 01/28/18 History Docusate Sodium [Dok] 100 mg PO BID #60 capsule 03/30/18 Rx Allergies Allergy/AdvReac Type Severity Reaction Status Date / Time No Known Allergies Allergy Verified 01/28/18 07:49 Physical Exam Vitals: Vital Signs Temp Pulse Resp BP Pulse Ox 03/31/18 00:40 97.7 F 62 18 134/92 97 03/30/18 19:01 97.7 F 56 L 18 159/72 97 03/30/18 15:30 97.3 F L 57 L 16 126/81 97 03/30/18 07:42 97.5 F L 60 16 134/78 99 03/30/18 07:00 16 Intake and Output 03/30/18 03/30/18 03/31/18 14:59 22:59 06:59 Other: # Voids 3 On physical examination, patient appears comfortable in no apparent distress. HEAD: Normocephalic, atraumatic. EYES: No scleral icterus. No conjunctival injection. MOUTH: No lesions, tongue midline. NECK: Trachea midline, no gross abnormalities. CHEST: Clear to auscultation with no wheezing or rhonchi appreciated. HEART: Regular rate and rhythm. ABDOMEN: Soft, tender to palpation in the left abdomen. Bowel sounds are positive. No organomegaly. No guarding or rigidity. EXTREMITIES: No pedal edema. SKIN: No rashes, no jaundice. NEUROLOGIC: Alert and oriented x3. No focal deficits. Results CBC & Chem 7: 03/29/18 06:44 03/29/18 06:44 Labs: Microbiology - Last 24 Hours (Table) 03/27/18 19:41 Group A Strep Throat Culture - Final Throat CT scan - abdomen: report reviewed (Computed tomography scan of the abdomen negative for any intra-abdominal pathology) Assessment and Plan (1) Abdominal pain Narrative/Plan: 37-year-old male presenting with intermittent episodes of abdominal pain over the past 4 years described as abdominal distention and bloating with pain in his left abdomen. Unclear what the etiology is of his symptoms, may relate to functional bowel disorder, underlying diverticulitis or enteritis, or other etiology. Current Visit: Yes Status: Acute Code(s): R10.9 - UNSPECIFIED ABDOMINAL PAIN SNOMED Code(s): 34745089 Plan: Supportive care Appreciate surgical recommendations Continue diet as tolerated Will add Bentyl [id number] Extensive discussion with the patient on dietary modifications including avoidance of lactose and fibrous foods, in addition I directed the patient to familiarize himself with the FODMAP diet and gas producing foods Continue Pepcid therapy Thank you for allowing us to participate in the care of the patient we will continue to follow
[2018-03-31] MEDS: SODIUM CHLORIDE 0.9% 1,000 ML IV SCH ×3 (07:11→22:23)
[2018-03-31] MEDS: metroNIDAZOLE-NS PMX 500 MG in SALINE 1 100ML.BAG IVPB SCH ×3 (07:37→22:22)
--- NOTE | 2018-03-31 08:24 | P.PN ---
Subjective Progress Note Date: 03/31/18 Principal diagnosis: abdominal pain Reports left lower quadrant abdominal tenderness. Passing nonbloody bowel movements. Afebrile. Ultrasound abdomen completed this morning results pending. Objective - Vital Signs Vital signs: Vital Signs Temp 98.3 F 03/31/18 07:53 Pulse 68 03/31/18 07:53 Resp 16 03/31/18 07:53 BP 117/57 03/31/18 07:53 Pulse Ox 98 03/31/18 07:53 Intake & Output 03/30/18 03/31/18 03/31/18 18:59 06:59 18:59 Other: # Voids 3 - Exam General appearance: The patient is alert, oriented, in no acute distress. HET: Head is normocephalic and atraumatic. Pupils are equal and reactive. Oropharynx is clear without lesions. Neck: Supple without lymphadenopathy. Trachea midline. Heart: S1 S2. Regular rate and rhythm. Lungs: No crackles or wheezes are heard. Abdomen: Soft, mild left lower quadrant tenderness, nondistended with bowel sounds. No peritoneal signs. No palpable organomegaly or masses. Extremities: Normal skin color and turgor. No cyanosis, rash, ulceration, clubbing, or edema. Radial and pedal pulses are 2/4 bilaterally. Neurological: No focal deficits. Strength and sensation are grossly intact. - Labs CBC & Chem 7: 03/29/18 06:44 03/29/18 06:44 Labs: Microbiology - Last 24 Hours (Table) 03/27/18 19:41 Group A Strep Throat Culture - Final Throat Assessment and Plan (1) Abdominal pain Current Visit: Yes Status: Acute Code(s): R10.9 - UNSPECIFIED ABDOMINAL PAIN SNOMED Code(s): 46385345 Plan: 1. Continue with light diet as tolerated. Patient is requesting follow with Dr. Dacosta service for outpatient colonoscopy evaluation. Continue with present medical therapy. Await ultrasound findings. Assessment and plan a care discussed with Dr. Truong
--- NOTE | 2018-03-31 08:25 | US ---
EXAMINATION TYPE: US abdomen comp/pelvis limited DATE OF EXAM: 03/31/2018 COMPARISON: Correlation CT 03/27/2018 CLINICAL HISTORY: 37-year-old male with abdominal pain. LLQ ABD pain TECHNIQUE: Multiple sonographic images of the abdomen and bladder are obtained. FINDINGS: EXAM MEASUREMENTS: Liver Length: 15.9 cm Gallbladder Wall: 0.2 cm CBD: 0.5 cm Spleen: 11.8 cm Right Kidney: 11.5 x 5.7 x 5.4 cm Left Kidney: 12.6 x 6.2 x 5.2 cm Pancreas: Obscured by bowel gas Liver: Normal size and homogeneous appearance. No focal lesion seen. Gallbladder: wnl CBD: wnl Spleen: wnl Right Kidney: wnl Left Kidney: wnl Upper IVC: wnl Abd Aorta: Measured ectatic proximally but correlation with patient's recent CT shows normal caliber . Bladder: wnl Bilateral Jets Seen No No abnormality visualized to account for pt's pain IMPRESSION: Suboptimal visualization of the pancreas. Otherwise, no specific sonographic abnormality of the abdom en or bladder.
[2018-03-31] MEDS: FAMOTIDINE 20 MG TAB PO SCH ×2 (09:30→22:22)
[2018-03-31] MEDS: DICYCLOMINE 20 MG TAB PO PRN ×2 (13:26→22:24)
--- NOTE | 2018-03-31 15:55 | P.PN ---
Progress Note - Text Progress Note Date: 03/31/18 Appreciate GI input. Please notify me if condition worsens and you would like the patient reevaluated. Thank you
[2018-04-01] MEDS: PIPERACILLIN-TAZOBACTAM 3.375 GM in SODIUM CHLORIDE 0.9% 100 ML IVPB SCH ×2 (00:29→08:44)
[2018-04-01] MEDS: KETOROLAC 30 MG/ML 1 ML VIAL IVP SCH ×3 (00:29→13:07)
[2018-04-01] MEDS: metroNIDAZOLE-NS PMX 500 MG in SALINE 1 100ML.BAG IVPB SCH (06:24)
[2018-04-01 07:04] VITALS: BP 107/59; PULSE 50; RESP 14; TEMP 97.3
[2018-04-01] MEDS: SODIUM CHLORIDE 0.9% 1,000 ML IV SCH (07:09)
[2018-04-01] MEDS: HYDROcodone/APAP 5-325MG 1 EACH TAB PO PRN ×2 (08:43→13:08)
[2018-04-01] MEDS: DICYCLOMINE 20 MG TAB PO PRN (08:43)
[2018-04-01] MEDS: FAMOTIDINE 20 MG TAB PO SCH (08:44)
--- NOTE | 2018-04-01 09:15 | P.PN ---
Subjective Progress Note Date: 04/01/18 Principal diagnosis: abdominal pain Reports left lower quadrant abdominal tenderness this morning otherwise had a good night. Passing nonbloody bowel movement this am. Afebrile. Ultrasound abdomen unremarkable. Objective - Vital Signs Vital signs: Vital Signs Temp 97.3 F L 04/01/18 07:03 Pulse 50 L 04/01/18 07:03 Resp 14 04/01/18 07:03 BP 107/59 04/01/18 07:03 Pulse Ox 99 04/01/18 07:03 Intake & Output 03/31/18 04/01/18 04/01/18 18:59 06:59 18:59 Intake Total 1300 740 Balance 1300 740 Weight 110.45 kg Intake: Intake, IV Titration 1300 200 Amount Piperacillin-Tazobactam 3 100 100 .375 gm In Sodium Chloride 0.9% 100 ml @ 25 mls/hr IVPB Q8HR ANDRES Rx# :[id number] Sodium Chloride 0.9% 1, 1000 000 ml @ 125 mls/hr IV . Q8H ANDRES Rx#:[id number] metroNIDAZOLE-NS PMX 500 200 100 mg In Saline 1 100ml.bag @ 100 mls/hr IVPB Q8H ANDRES Rx#:[id number] Oral 540 Other: Voiding Method Toilet # Voids 1 1 # Bowel Movements 2 - Exam General appearance: The patient is alert, oriented, in no acute distress. HET: Head is normocephalic and atraumatic. Pupils are equal and reactive. Oropharynx is clear without lesions. Neck: Supple without lymphadenopathy. Trachea midline. Heart: S1 S2. Regular rate and rhythm. Lungs: No crackles or wheezes are heard. Abdomen: Soft, mild left lower quadrant tenderness, nondistended with bowel sounds. No peritoneal signs. No palpable organomegaly or masses. Extremities: Normal skin color and turgor. No cyanosis, rash, ulceration, clubbing, or edema. Radial and pedal pulses are 2/4 bilaterally. Neurological: No focal deficits. Strength and sensation are grossly intact. - Labs CBC & Chem 7: 03/29/18 06:44 03/29/18 06:44 Labs: Microbiology - Last 24 Hours (Table) 03/31/18 07:00 Stool Culture - Preliminary Stool Assessment and Plan (1) Abdominal pain Current Visit: Yes Status: Acute Code(s): R10.9 - UNSPECIFIED ABDOMINAL PAIN SNOMED Code(s): 01385580 Plan: 1. Continue with light diet as tolerated. Patient is requesting follow up with Dr. Dacosta service for outpatient colonoscopy evaluation however GI office does not accept patient's insurance. He was advised to follow up with health insurance company to direct participating provider. Continue with present medical therapy. DC per medicine. Assessment and plan a care discussed with Dr. Truong
--- NOTE | 2018-04-01 10:02 | PN ---
PROGRESS NOTE DATE OF SERVICE: 04/01/2018 SUBJECTIVE: This is a 37-year-old white male with abdominal pain, ileus, gastroenteritis, appears to be improving. Going to adjust his diet, increase his food intake. Remains on IV Zosyn and IV Flagyl. Await Surgical and GI recommendations. Possible discharge home tomorrow. GI: Has increased bowel sounds x4, but improved. CARDIOVASCULAR: S1, S2. Lungs are clear. ASSESSMENT: Gastroenteritis. Possible discharge home on oral antibiotics tomorrow. Await Surgical and GI recommendations. MMODL / IJN: [id number] /
--- NOTE | 2018-04-03 17:58 | DS ---
DISCHARGE SUMMARY ADMISSION DATE: 03/28/2018. DISCHARGE DATE: 04/01/2018. DISCHARGE DIAGNOSIS: Gastroenteritis, abdominal pain. DISCHARGE MEDICATIONS: 1. Claritin 10 mg daily. 2. Albuterol ProAir HFA 2 puffs every 4 hours p.r.n. 3. Flagyl 500 t.i.d. for a week. 4. Colace for constipation p.r.n. CONDITION: Stable. PROGNOSIS: Guarded. INSTRUCTIONS: Ambulate as tolerated. HOSPITAL COURSE: He was admitted. IV antibiotics were given x2. Patient was stabilized over the next 24 to 48 hours, at which point patient was discharged home in stable condition, to follow up as an outpatient. MMODL / IJN: [id number] /
== END 2018-04-01 13:28 | disposition home or self-care (01) ==
LOC: EC 19:15 → 4SSUR 03-28 04:30 → OBSVTOIN 03-28 07:44 → INTOOBSV 03-28 07:44 → UNDODISIN 04-01 13:28
PROVIDERS: ADMIT Family Medicine; ATTEND Family Medicine
DX: K52.9 Noninfective gastroenteritis and colitis, unspecified (principal); K56.7 Ileus, unspecified; K59.00 Constipation, unspecified; F32.9 Major depressive disorder, single episode, unspecified; F41.9 Anxiety disorder, unspecified; F17.200 Nicotine dependence, unspecified, uncomplicated; G43.909 Migraine, unspecified, not intractable, without status migrainosus; Z79.899 Other long term (current) drug therapy
CPT/HCPCS: 74019; 74022; 74176; 76700; 76857; 80048; 80053; 81003; 82150; 83690; 85025; 87045; 87046; 87081; 87430; 96361; 96365; 96366; 96367; 96368; 96375; 96376; 99285

== ENCOUNTER 2018-06-30 17:43 | Emergency (ER) | payer OTHER ==
[2018-06-30 17:58] VITALS: BP 154/89; PULSE 87; RESP 20; TEMP 98.4
[2018-06-30] MEDS ORDERED: PENICILLIN VK 500MG STARTER 4 TAB BTL PO STA (18:06)
[2018-06-30] MEDS ORDERED: ACET/COD 300 MG/30 MG STARTER PACK 6 TAB BTL PO STA (18:06)
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
== END 2018-06-30 18:36 | disposition home or self-care (01) ==
LOC: EC 17:43
DX: K08.89 Other specified disorders of teeth and supporting structures (principal); F17.200 Nicotine dependence, unspecified, uncomplicated; Z79.899 Other long term (current) drug therapy
CPT/HCPCS: 99282

== ENCOUNTER 2018-08-04 18:49 | Emergency (ER) | payer OTHER ==
[2018-08-04 18:58] VITALS: RESP 18
[2018-08-04] MEDS ORDERED: methylPREDNISolone SOD SUCCI 125 MG/2 ML VIAL IM ONE (19:25)
[2018-08-04] MEDS ORDERED: KETOROLAC 30 MG/ML 1 ML VIAL IM STA (19:25)
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
--- NOTE | 2018-08-04 20:19 | XR ---
EXAMINATION TYPE: XR shoulder complete RT DATE OF EXAM: 08/04/2018 COMPARISON: NONE HISTORY: Shoulder pain TECHNIQUE: 3 views FINDINGS: I see no fracture nor dislocation. Joint spaces are normal. There are no pathologic calcifi cations. IMPRESSION: Negative right shoulder exam.
--- NOTE | 2018-08-04 20:19 | XR ---
EXAMINATION TYPE: XR elbow complete RT DATE OF EXAM: 08/04/2018 COMPARISON: NONE HISTORY: Pain TECHNIQUE: 3 views FINDINGS: I see no fracture nor dislocation. Elbow joint spaces are normal. There is no sign of elbow joint effusion. IMPRESSION: Negative right elbow exam.
[2018-08-04] MEDS ORDERED: MORPHINE SULFATE 4 MG/ML SYRINGE IM STA (20:33)
[2018-08-04] MEDS ORDERED: ACET/COD 300 MG/30 MG STARTER PACK 6 TAB BTL PO STA (20:45)
[2018-08-04 21:12] VITALS: BP 115/89; PULSE 87; TEMP 97.8
== END 2018-08-04 21:11 | disposition home or self-care (01) ==
LOC: EC 18:49
DX: M54.12 Radiculopathy, cervical region (principal); S50.811A Abrasion of right forearm, initial encounter; F17.200 Nicotine dependence, unspecified, uncomplicated; Z79.899 Other long term (current) drug therapy; V18.4XXA Pedal cycle driver injured in noncollision transport accident in traffic accident, initial encounter; X50.1XXA Overexertion from prolonged static or awkward postures, initial encounter; Y93.55 Activity, bike riding
CPT/HCPCS: 73030; 73080; 72125; 99284; 96372 ×3; J2270; J2930; J1885

== ENCOUNTER 2018-08-21 10:38 | Emergency (ER) | payer OTHER ==
[2018-08-21 10:42] VITALS: TEMP 98.7
--- NOTE | 2018-08-21 11:38 | XR ---
EXAMINATION TYPE: XR chest 2V DATE OF EXAM: 08/21/2018 COMPARISON: 01/28/2018 HISTORY: Chest pain TECHNIQUE: Frontal and lateral views of the chest are obtained. FINDINGS: There is no focal air space opacity. No evidence for pneumothorax. No pleural effusion. The cardiac silhouette size is within normal limits. The osseous structures are grossly intact. IMPRESSION: 1. No acute cardiopulmonary process.
[2018-08-21] MEDS ORDERED: IPRATROPIUM-ALBUTEROL 3 ML NEB INHALATION STA (11:51)
[2018-08-21] MEDS ORDERED: methylPREDNISolone SOD SUCCI 125 MG/2 ML VIAL IV STA (11:51)
[2018-08-21] MEDS ORDERED: KETOROLAC 30 MG/ML 1 ML VIAL IVP STA (11:52)
--- NOTE | 2018-08-21 11:54 | ED ---
Chest Pain HPI - General Chief Complaint: Chest Pain Stated Complaint: SOB, cough Time Seen by Provider: 08/21/18 11:15 Source: patient Mode of arrival: ambulatory Limitations: no limitations - History of Present Illness Initial Comments: 38-year-old male presenting today for chief complaint of congestion cough and chest tightness. Patient states about 2 days prior after cutting the grass he had a runny nose and scratchy throat and watery eyes. He felt that these were related to ALLERGIES. Patient states over the course the past 2 days he has had a deep cough and some tightness in the chest when attempts a deep breath with an occasional sharp pain with deep inspiration. Patient states she has never day smoker however has not been able to smoke secondary to shortness of breath. Patient states that he's had bronchitis and pneumonia in the past and is concerned that this was developing. Patient denies any fevers difficulty swallowing. He states he has had on-and-off headache denies any neck stiffness or photophobia. Patient states he has had a performed breathing treatments in the past when he's felt similar. Patient denies any exertional chest pain doesn't nausea and epigastric pain upper extremity paresthesias or jaw pain. - Related Data Home Medications Medication Instructions Recorded Confirmed Loratadine [Claritin] 10 mg PO DAILY 01/28/18 08/04/18 Acetaminophen [Tylenol] 1,000 mg PO Q4-6H PRN 08/04/18 08/04/18 Previous Rx's Medication Instructions Recorded Cyclobenzaprine [Flexeril] 10 mg PO TID #15 tab 08/04/18 Ibuprofen [Motrin] 600 mg PO Q8HR PRN #30 tab 08/04/18 predniSONE 50 mg PO DAILY #5 tablet 08/04/18 Albuterol Inhaler [Ventolin Hfa 1 - 2 puff INHALATION RT-Q6H PRN 7 08/21/18 Inhaler] Days #1 inhaler Azithromycin [Zithromax] 0 mg PO DIRECTED #6 tab 08/21/18 predniSONE 20 mg PO DAILY 5 Days #5 tab 08/21/18 Allergies Allergy/AdvReac Type Severity Reaction Status Date / Time No Known Allergies Allergy Verified 08/21/18 10:42 Review of Systems ROS Statement: Those systems with pertinent positive or pertinent negative responses have been documented in the HPI. ROS Other: All systems not noted in ROS Statement are negative. EKG Findings - EKG Comments: EKG Findings:: Ventricular rate 82 bpm, KS interval 166 ms, QRS duration 94 ms, QT/QTC 374/436 ms. This is normal sinus rhythm with by atrial enlargement noted. No ST elevation or depression. EKG was interpreted by myself and reviewed by my attending provider Dr. Dupree. Past Medical History Past Medical History: No Reported History Additional Past Medical History / Comment(s): heat stroke summer 2013, migraines History of Any Multi-Drug Resistant Organisms: None Reported Past Surgical History: Orthopedic Surgery, Tonsillectomy Additional Past Surgical History / Comment(s): left foot surgery Past Psychological History: Anxiety, Depression Smoking Status: Current every day smoker Past Alcohol Use History: Occasional Past Drug Use History: None Reported - Past Family History Brother(s) Additional Family Medical History / Comment(s): Lupus Mother Family Medical History: Hypertension Additional Family Medical History / Comment(s): Lupus General Exam - General Exam Comments Initial Comments: General: The patient is awake and alert, in no distress, and does not appear acutely ill. Eye: +3 mm pupils are equal, round and reactive to light, extra-ocular movements are intact. No nystagmus. There is normal conjunctiva bilaterally. No signs of icterus. Ears, nose, mouth and throat: There are moist mucous membranes and no oral lesions. Neck: The neck is supple, there is no tenderness or JVD. No nuchal rigidity negative Brudzinski and Kernig sign. No photophobia. Cardiovascular: There is a regular rate and rhythm. No murmur, rub or gallop is appreciated. Respiratory: Respirations are non-labored, breath sounds are equal. Noted expiratory wheeze and some rhonchi on lung examination. No stridor, rales, or rhonchi. Gastrointestinal: Soft, non-distended, non-tender abdomen without masses or organomegaly noted. There is no rebound or guarding present. Musculoskeletal: Normal ROM, no tenderness. Strength 5/5. Sensation intact. Radial pulses equal bilaterally 2+. Neurological: A&O x 3. CN II-XII intact, There are no obvious motor or sensory deficits. Coordination appears grossly intact. Speech is normal. Skin: Skin is warm and dry and no rashes or lesions are noted. No lower extremity edema. Psychiatric: Cooperative, appropriate mood & affect, normal judgment. Limitations: no limitations Course Vital Signs 08/21/18 08/21/18 08/21/18 10:40 12:07 12:19 Temperature 98.7 F Pulse Rate 95 96 Respiratory 18 19 Rate Blood Pressure 144/75 O2 Sat by Pulse 98 Oximetry 08/21/18 12:30 Temperature Pulse Rate 92 Respiratory Rate Blood Pressure O2 Sat by Pulse Oximetry - Reevaluation(s) Reevaluation #1: Lung sounds after DuoNeb treatment. Patient states his symptoms were reduced by treatment. Denies chest pain. 08/21/18 15:11 Chest Pain MDM - MDM 38-year-old male presenting for cough congestion headache and chest tight with deep inspiration. She states the symptoms were identical to when he had bronchitis and pneumonia in the past. Patient is every day smoker. On examination there is significant expiratory wheeze. This kind noted. Patient has obvious congestion on examination. Patient denies any chest pain with exertion or in absence of deep breath. Troponin (-). Dimer was obtained given pleurtic chest pain, mildly elevated CTA (-) for PE. After reevaluation, once DuoNeb treatment was administered as well as steroids patient states she was feeling better. Patient is stressed stating is ready go home. Patient was offered observation for second troponin. Patient refused. Patient will be discharged with diagnosis of bronchitis who provided azithromycin steroid and albuterol inhaler. Patient is agreeable with plan and discharge. Stressed importance of outpatient PCP f/u. Case discussed at length with Dr. Dupree who is agreeable with care plan and d/c Disposition Clinical Impression: Acute bronchitis Disposition: HOME SELF-CARE Condition: Good Instructions (If sedation given, give patient instructions): Acute Bronchitis (ED) Additional Instructions: Please use medication as discussed. Please follow-up with family doctor in the next 2 days of symptoms have not improved. Please return to emergency room if the symptoms increase or worsen or for any other concerns. Prescriptions: predniSONE 20 mg PO DAILY 5 Days #5 tab Albuterol Inhaler [Ventolin Hfa Inhaler] 1 - 2 puff INHALATION RT-Q6H PRN 7 Days #1 inhaler PRN Reason: Wheezing Azithromycin [Zithromax] 0 mg PO DIRECTED #6 tab Is patient prescribed a controlled substance at d/c from ED?: No Referrals: Gabriel Roman MD [Primary Care Provider] - 1-2 days Time of Disposition: 14:48
[2018-08-21 11:57] LABS: Basophils # (A) 0.1 k/uL (0-0.2); Basophils % (A) 1 %; Eosinophils # (A) 0.4 k/uL (0-0.7); Eosinophils % (A) 4 %; HCT 44.9 % (39.0-53.0); HGB 14.6 gm/dL (13.0-17.5); Lymphocytes # (A) 1.3 k/uL (1.0-4.8); Lymphocytes % (A) 12 %; MCH 30.1 pg (25.0-35.0); MCHC 32.5 g/dL (31.0-37.0); MCV 92.6 fL (80.0-100.0); Mean Platelet Volume 7.6; Monocytes # (A) 0.4 k/uL (0-1.0); Monocytes % (A) 4 %; Neutrophils # (A) 7.8 k/uL (1.3-7.7); Neutrophils % (A) 77 %; Platelet Count 225 k/uL (150-450); RBC 4.85 m/uL (4.30-5.90); RDW 12.9 % (11.5-15.5); WBC 10.1 k/uL (3.8-10.6)
[2018-08-21 12:10] LABS: INR 0.9 (<1.2); Partial Thromboplastin Time 23.2 sec (22.0-30.0); Prothrombin Time 9.5 sec (9.0-12.0)
[2018-08-21 12:16] LABS: ALT 38 U/L (21-72); AST 29 U/L (17-59); African American GFR (CKD) >90 (>60 ml/min/1.73 sqM); Albumin 3.8 g/dL (3.5-5.0); Alkaline Phosphatase 61 U/L (38-126); Anion Gap 8 mmol/L; Blood Urea Nitrogen 13 mg/dL (9-20); Calcium 8.8 mg/dL (8.4-10.2); Carbon Dioxide 24 mmol/L (22-30); Chloride 107 mmol/L (98-107); Glucose 79 mg/dL (74-99); Potassium 4.4 mmol/L (3.5-5.1); Sodium 139 mmol/L (137-145); Total Bilirubin 0.6 mg/dL (0.2-1.3); Total Protein 6.2 g/dL (6.3-8.2)
[2018-08-21] MEDS ORDERED: ACETAMINOPHEN TAB 325 MG TAB PO STA (13:53)
--- NOTE | 2018-08-21 14:15 | CT ---
EXAMINATION TYPE: CT angio chest DATE OF EXAM: 08/21/2018 1:49 PM COMPARISON: None HISTORY: CT DLP: mGycm Automated exposure control for dose reduction was used. CONTRAST: CTA scan of the thorax is performed , patient injected with mL of , pulmonary embolism protocol. . The IV contrast was Isovue 100 mL. There are 3-D post processed images. FINDINGS: Heart appears normal. There is no pericardial effusion. There are no hilar masses. There is no medias tinal adenopathy. Thoracic aorta is intact without evidence of aneurysm or dissection. The lungs are clear of infiltrate. There is no evidence of a pulmonary mass. There is no pleural effu yoav. Upper abdominal soft tissues are intact. There is normal contrast opacification of the pulmonary arteries. There are no filling defect. Thoracic spine is intact. Bony thorax is intact. IMPRESSION: NEGATIVE EXAM. NO EVIDENCE OF PULMONARY EMBOLISM.
[2018-08-21 15:17] VITALS: BP 137/72; PULSE 76; RESP 16
== END 2018-08-21 15:24 | disposition home or self-care (01) ==
LOC: EC 10:38
DX: J20.9 Acute bronchitis, unspecified (principal); F17.200 Nicotine dependence, unspecified, uncomplicated; Z79.899 Other long term (current) drug therapy
CPT/HCPCS: 36415; 94640; 93005; 85379; 80053; 83735; 84484; 85025; 85610; 85730; 71046; 71275; 99285; 96374; 96375; J2930; J1885; Q9967

== ENCOUNTER 2018-11-14 19:31 | Emergency (ER) | payer OTHER ==
[2018-11-14 19:36] VITALS: BP 164/93; PULSE 94; RESP 20; TEMP 98.1
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
== END 2018-11-14 20:52 | disposition home or self-care (01) ==
LOC: EC 19:31
DX: S00.03XA Contusion of scalp, initial encounter (principal); F17.200 Nicotine dependence, unspecified, uncomplicated; Y04.0XXA Assault by unarmed brawl or fight, initial encounter; X99.0XXA Assault by sharp glass, initial encounter; Y00.XXXA Assault by blunt object, initial encounter
CPT/HCPCS: 70450; 72125; 99284

== ENCOUNTER 2019-01-15 21:34 | Emergency (ER) | payer OTHER ==
[2019-01-15] MEDS ORDERED: PENICILLIN VK 500MG STARTER 4 TAB BTL PO STA (21:53)
[2019-01-15] MEDS ORDERED: BUPIVACAINE (PF) 0.5% 30 ML VIAL SQ STA (21:53)
[2019-01-15] MEDS ORDERED: ACET/COD 300 MG/30 MG STARTER PACK 6 TAB BTL PO STA (21:53)
--- NOTE | 2019-01-15 22:28 | ED ---
General Adult HPI - General Chief complaint: Dental/Oral Stated complaint: Dental pain Time Seen by Provider: 01/15/19 21:41 Source: patient, RN notes reviewed Mode of arrival: ambulatory Limitations: no limitations - History of Present Illness Initial comments: 38-year-old male presents to the emergency determine for a chief complaint of dental pain. Patient has had dental pain for the past few hours. States he has a cracked tooth in his bottom right jaw that has been present for several months. States she was supposed to get a root canal but never followed through with this. States he now believes the root is exposed. Denies fevers or chills. Denies swelling of the face. Patient has no other complaints at this time including shortness of breath, chest pain, abdominal pain, nausea or vomiting, headache, or visual changes. - Related Data Home Medications Medication Instructions Recorded Confirmed Loratadine [Claritin] 10 mg PO DAILY 01/28/18 08/04/18 Acetaminophen [Tylenol] 1,000 mg PO Q4-6H PRN 08/04/18 08/04/18 Previous Rx's Medication Instructions Recorded Cyclobenzaprine [Flexeril] 10 mg PO TID #15 tab 08/04/18 Ibuprofen [Motrin] 600 mg PO Q8HR PRN #30 tab 08/04/18 predniSONE 50 mg PO DAILY #5 tablet 08/04/18 Albuterol Inhaler [Ventolin Hfa 1 - 2 puff INHALATION RT-Q6H PRN 7 08/21/18 Inhaler] Days #1 inhaler Azithromycin [Zithromax] 0 mg PO DIRECTED #6 tab 08/21/18 predniSONE 20 mg PO DAILY 5 Days #5 tab 08/21/18 Ibuprofen [Motrin] 600 mg PO Q6HR PRN #20 tab 01/15/19 Penicillin V Potassium [Pen Vee K] 500 mg PO Q6H 10 Days #40 tablet 01/15/19 Allergies Allergy/AdvReac Type Severity Reaction Status Date / Time No Known Allergies Allergy Verified 01/15/19 21:40 Review of Systems ROS Statement: Those systems with pertinent positive or pertinent negative responses have been documented in the HPI. ROS Other: All systems not noted in ROS Statement are negative. Past Medical History Past Medical History: No Reported History Additional Past Medical History / Comment(s): heat stroke summer 2013, migraines History of Any Multi-Drug Resistant Organisms: None Reported Past Surgical History: Orthopedic Surgery, Tonsillectomy Additional Past Surgical History / Comment(s): left foot surgery Past Psychological History: Anxiety, Depression Smoking Status: Current every day smoker Past Alcohol Use History: Occasional Past Drug Use History: None Reported - Past Family History Brother(s) Additional Family Medical History / Comment(s): Lupus Mother Family Medical History: Hypertension Additional Family Medical History / Comment(s): Lupus General Exam Limitations: no limitations General appearance: alert, in no apparent distress Head exam: Present: atraumatic, normocephalic, normal inspection Eye exam: Present: normal appearance, PERRL, EOMI. Absent: scleral icterus, conjunctival injection, periorbital swelling ENT exam: Present: normal exam, mucous membranes moist. Absent: normal oropharynx (Pt has a cracked tooth 29, no swelling of the lower jaw. No sublingual tenderness or swelling. No evidence for abscess.) Neck exam: Present: normal inspection, full ROM. Absent: tenderness, meningismus, lymphadenopathy Respiratory exam: Present: normal lung sounds bilaterally. Absent: respiratory distress, wheezes, rales, rhonchi, stridor Cardiovascular Exam: Present: regular rate, normal rhythm, normal heart sounds. Absent: systolic murmur, diastolic murmur, rubs, gallop, clicks Neurological exam: Present: alert Course Vital Signs 01/15/19 01/15/19 21:37 22:10 Temperature 97.5 F L 97.6 F Pulse Rate 106 H 90 Respiratory 20 18 Rate Blood Pressure 142/92 138/88 O2 Sat by Pulse 98 100 Oximetry Procedures - Nerve Block Consent Obtained: verbal consent Local Anesthetic Used: Marcaine 0.5% Amount of anesthesia used: 3 Side: right Intraoral Nerve Block: inferior alveolar Complications: none Patient Tolerated Procedure: well, no complications Medical Decision Making - Medical Decision Making Patient presents for dental pain. Patient was told by [facility] that he needs a nerve block 6 months ago but never followed up to have this procedure completed. Pain started again today. There is no sign of abscess but there is a cracked tooth noted along the right mandible. I did attempt an inferior alveolar nerve block. Patient states this helped but did not completely resolve his pain. Patient was given 1 Tylenol 3 and one injection of Toradol. Patient will follow up outpatient at his dentist on Thursday . He will be given penicillin and Motrin. He will return here if he has any worsening symptoms. Disposition Clinical Impression: Pain, dental Disposition: HOME SELF-CARE Condition: Good Instructions (If sedation given, give patient instructions): Toothache (ED) Additional Instructions: Please take Motrin and Tylenol for pain. If pain is severe take a Tylenol 3. Do not drive or operate machinery while taking this. Take Antibiotic as directed. This is prescribed to Ana on . Follow-up with dentist on Thursday. Return to the emergency department give any worsening symptoms. Prescriptions: Ibuprofen [Motrin] 600 mg PO Q6HR PRN #20 tab PRN Reason: Pain Penicillin V Potassium [Pen Vee K] 500 mg PO Q6H 10 Days #40 tablet Is patient prescribed a controlled substance at d/c from ED?: No Referrals: Gabriel Roman MD [Primary Care Provider] - 1-2 days Time of Disposition: 22:52
[2019-01-15 22:55] VITALS: BP 138/88; PULSE 90; RESP 18; TEMP 97.6
[2019-01-15] MEDS ORDERED: KETOROLAC 30 MG/ML 1 ML VIAL IM STA (22:57)
== END 2019-01-15 23:07 | disposition home or self-care (01) ==
LOC: EC 21:34
DX: K03.81 Cracked tooth (principal); F17.200 Nicotine dependence, unspecified, uncomplicated
CPT/HCPCS: 99283; 64400; 96372; J1885

== ENCOUNTER 2019-01-16 12:49 | Emergency (ER) | payer OTHER ==
[2019-01-16 13:07] VITALS: RESP 20
[2019-01-16] MEDS ORDERED: HYDROcodone/APAP 5-325MG 1 EACH TAB PO STA (13:50)
[2019-01-16] MEDS ORDERED: BUPIVACAINE (PF) 0.5% 30 ML VIAL SQ STA (13:50)
[2019-01-16] MEDS ORDERED: ACET/COD 300 MG/30 MG STARTER PACK 6 TAB BTL PO STA (14:45)
--- NOTE | 2019-01-16 14:45 | ED ---
ENT HPI - General Chief complaint: Dental/Oral Stated complaint: dental pain Time Seen by Provider: 01/16/19 13:18 Source: patient, RN notes reviewed, old records reviewed Mode of arrival: ambulatory Limitations: no limitations - History of Present Illness Initial comments: 38 year old male presents today for dental pain. He was seen in ED yesterday, DC with PenVK and tylenol 3 starter pack. He reports that the nerve block did not help. Patient has no fevers or chills. He reports that he is to follow up with dentist tomorrow and that he needed something for pain in the meantime. - Related Data Home Medications Medication Instructions Recorded Confirmed Loratadine [Claritin] 10 mg PO DAILY 01/28/18 08/04/18 Acetaminophen [Tylenol] 1,000 mg PO Q4-6H PRN 08/04/18 08/04/18 Previous Rx's Medication Instructions Recorded Cyclobenzaprine [Flexeril] 10 mg PO TID #15 tab 08/04/18 Ibuprofen [Motrin] 600 mg PO Q8HR PRN #30 tab 08/04/18 predniSONE 50 mg PO DAILY #5 tablet 08/04/18 Albuterol Inhaler [Ventolin Hfa 1 - 2 puff INHALATION RT-Q6H PRN 7 08/21/18 Inhaler] Days #1 inhaler Azithromycin [Zithromax] 0 mg PO DIRECTED #6 tab 08/21/18 predniSONE 20 mg PO DAILY 5 Days #5 tab 08/21/18 Ibuprofen [Motrin] 600 mg PO Q6HR PRN #20 tab 01/15/19 Penicillin V Potassium [Pen Vee K] 500 mg PO Q6H 10 Days #40 tablet 01/15/19 Allergies Allergy/AdvReac Type Severity Reaction Status Date / Time No Known Allergies Allergy Verified 01/16/19 21:08 Review of Systems ROS Statement: Those systems with pertinent positive or pertinent negative responses have been documented in the HPI. ROS Other: All systems not noted in ROS Statement are negative. Past Medical History Past Medical History: No Reported History Additional Past Medical History / Comment(s): heat stroke summer 2013, migraines History of Any Multi-Drug Resistant Organisms: None Reported Past Surgical History: Orthopedic Surgery, Tonsillectomy Additional Past Surgical History / Comment(s): left foot surgery Past Psychological History: Anxiety, Depression Smoking Status: Current every day smoker Past Alcohol Use History: Occasional Past Drug Use History: None Reported - Past Family History Brother(s) Additional Family Medical History / Comment(s): Lupus Mother Family Medical History: Hypertension Additional Family Medical History / Comment(s): Lupus General Exam - General Exam Comments Initial Comments: 38 year old male, no distress. Limitations: no limitations General appearance: alert, in no apparent distress Head exam: Present: atraumatic, normocephalic, normal inspection Eye exam: Present: normal appearance, PERRL, EOMI. Absent: scleral icterus, conjunctival injection, periorbital swelling ENT exam: Present: normal exam, mucous membranes moist, other (no palpable abscess over right lower gum, but erythema and broken tooth 16. ) Neck exam: Present: normal inspection. Absent: tenderness, meningismus, lymphadenopathy Respiratory exam: Present: normal lung sounds bilaterally. Absent: respiratory distress, wheezes, rales, rhonchi, stridor Cardiovascular Exam: Present: regular rate, normal rhythm, normal heart sounds. Absent: systolic murmur, diastolic murmur, rubs, gallop, clicks GI/Abdominal exam: Present: soft, normal bowel sounds. Absent: distended, tenderness, guarding, rebound, rigid Back exam: Present: normal inspection Neurological exam: Present: alert, oriented X3, CN II-XII intact Psychiatric exam: Present: normal affect, normal mood Course Vital Signs 01/16/19 01/16/19 13:04 15:05 Temperature 97.8 F 96.8 F L Pulse Rate 95 98 Respiratory 20 20 Rate Blood Pressure 131/88 125/86 O2 Sat by Pulse 96 96 Oximetry Procedures - Nerve Block Consent Obtained: verbal consent Local Anesthetic Used: Marcaine 0.5% Amount of anesthesia used: 5 Side: right Intraoral Nerve Block: inferior alveolar Procedure Successful: Yes Complications: none Patient Tolerated Procedure: well, no complications Medical Decision Making - Medical Decision Making 38 year old male with dental pain. He has broken tooth and exposed nerve root, no palpable abscess to drain at this time. Given inferior alveolar block with improvement. Discussed finishing pen v k as given yesterday and will follow up with PCP and dentist. Disposition Clinical Impression: Pain, dental Disposition: HOME SELF-CARE Condition: Good Instructions (If sedation given, give patient instructions): Toothache (ED) Additional Instructions: [facility] [address] [place] [address] [phone] (existing clients only) For new clients: [phone] 1st consult: $50 (includes Xrays) Usually 30% less then private dentist for visits after. [employer] Have to pay $50 for Xrays anmd rest is covered. [phone] Is patient prescribed a controlled substance at d/c from ED?: No Referrals: Gabriel Roman MD [Primary Care Provider] - 1-2 days Time of Disposition: 14:45
[2019-01-16 15:06] VITALS: BP 125/86; PULSE 98; TEMP 96.8
== END 2019-01-16 15:05 | disposition home or self-care (01) ==
LOC: EC 12:49
DX: S02.5XXA Fracture of tooth (traumatic), initial encounter for closed fracture (principal); F17.200 Nicotine dependence, unspecified, uncomplicated; Z79.899 Other long term (current) drug therapy
CPT/HCPCS: 64400; 99283

== ENCOUNTER 2019-01-16 20:55 | Emergency (ER) | payer OTHER ==
[2019-01-16 21:08] VITALS: BP 125/73; PULSE 100; RESP 20; TEMP 98.3
[2019-01-16] MEDS ORDERED: HYDROmorphone 1 MG/ML 1 ML SYRINGE IM STA (21:48)
[2019-01-16] MEDS ORDERED: KETOROLAC 30 MG/ML 1 ML VIAL IM STA (21:48)
--- NOTE | 2019-01-16 21:49 | ED ---
General Adult HPI - General Chief complaint: Dental/Oral Stated complaint: Dental Pain Time Seen by Provider: 01/16/19 21:21 Source: patient Mode of arrival: ambulatory Limitations: no limitations - History of Present Illness Initial comments: 38-year-old male patient presents to the emergency department today for evaluation of right lower dental pain. This is the patient's third visit in 24 hours for similar complaint. Patient has a broken tooth in the right side and was supposed to have broken up and never got it done. Patient states that the pain has been out of control. States it seems to be worsening. He denies any facial swelling, fever, chills or denies any trismus or difficulty swallowing. Denies any nausea or vomiting. Patient states his been using home remedies as well as Tylenol codeine and ibuprofen without relief. States he did have performed here in the emergency department which only works for a couple of hours. Patient does have a plan to call dentistry in the morning. He is requesting something stronger for pain. Patient denies any recent rash, shortness breath, chest pain, abdominal pain, diarrhea, constipation, back pain, numbness, tingling, dizziness, weakness, hematuria, dysuria, urinary urgency, urinary frequency, headache, visual changes, or any other complaints. - Related Data Home Medications Medication Instructions Recorded Confirmed Loratadine [Claritin] 10 mg PO DAILY 01/28/18 08/04/18 Acetaminophen [Tylenol] 1,000 mg PO Q4-6H PRN 08/04/18 08/04/18 Previous Rx's Medication Instructions Recorded Cyclobenzaprine [Flexeril] 10 mg PO TID #15 tab 08/04/18 Ibuprofen [Motrin] 600 mg PO Q8HR PRN #30 tab 08/04/18 predniSONE 50 mg PO DAILY #5 tablet 08/04/18 Albuterol Inhaler [Ventolin Hfa 1 - 2 puff INHALATION RT-Q6H PRN 7 08/21/18 Inhaler] Days #1 inhaler Azithromycin [Zithromax] 0 mg PO DIRECTED #6 tab 08/21/18 predniSONE 20 mg PO DAILY 5 Days #5 tab 08/21/18 Ibuprofen [Motrin] 600 mg PO Q6HR PRN #20 tab 01/15/19 Penicillin V Potassium [Pen Vee K] 500 mg PO Q6H 10 Days #40 tablet 01/15/19 Allergies Allergy/AdvReac Type Severity Reaction Status Date / Time No Known Allergies Allergy Verified 01/16/19 21:08 Review of Systems ROS Statement: Those systems with pertinent positive or pertinent negative responses have been documented in the HPI. ROS Other: All systems not noted in ROS Statement are negative. Past Medical History Past Medical History: No Reported History Additional Past Medical History / Comment(s): heat stroke summer 2013, migraines History of Any Multi-Drug Resistant Organisms: None Reported Past Surgical History: Orthopedic Surgery, Tonsillectomy Additional Past Surgical History / Comment(s): left foot surgery Past Psychological History: Anxiety, Depression Smoking Status: Current every day smoker Past Alcohol Use History: Occasional Past Drug Use History: None Reported - Past Family History Brother(s) Additional Family Medical History / Comment(s): Lupus Mother Family Medical History: Hypertension Additional Family Medical History / Comment(s): Lupus General Exam Limitations: no limitations General appearance: alert, in no apparent distress, other (Physical well- developed, well-nourished adult male patient in no acute distress. Vital signs upon presentation are temperature 98.3F, pulse 100, respirations 20, blood pressure 125/73, pulse ox 95% on room air.) ENT exam: Present: mucous membranes moist, other (There is dental fracture right lower dentition. No surrounding gingival erythema or hyperplasia. No sign of dental abscess.) Neck exam: Present: normal inspection. Absent: tenderness, meningismus, lymphadenopathy Cardiovascular Exam: Present: regular rate, normal rhythm, normal heart sounds. Absent: systolic murmur, diastolic murmur, rubs, gallop, clicks GI/Abdominal exam: Present: soft, normal bowel sounds. Absent: distended, tenderness, guarding, rebound, rigid Neurological exam: Present: alert, oriented X3, CN II-XII intact Psychiatric exam: Present: normal affect, normal mood Skin exam: Present: warm, dry, intact, normal color. Absent: rash Course Vital Signs 01/16/19 21:05 Temperature 98.3 F Pulse Rate 100 Respiratory 20 Rate Blood Pressure 125/73 O2 Sat by Pulse 95 Oximetry Medical Decision Making - Medical Decision Making 38-year-old male patient with right lower dental pain. Physical examination does reveal broken tooth. Patient has been here 3 times today for similar complaints. He did receive dental block twice before. States pain medicine is ordered. Given IM doses of medication and discharged home to follow-up with dentistry tomorrow. Disposition Clinical Impression: Pain, dental Disposition: HOME SELF-CARE Condition: Good Instructions (If sedation given, give patient instructions): Toothache (ED) Additional Instructions: Apply warm moist heat to the face. Continue home medications. Follow-up with dentistry as soon as possible. Return to the emergency department immediately for any new, worsening, or concerning symptoms. Is patient prescribed a controlled substance at d/c from ED?: No Referrals: Gabriel Roman MD [Primary Care Provider] - 1-2 days Time of Disposition: 21:49
== END 2019-01-16 22:06 | disposition home or self-care (01) ==
LOC: EC 20:55
DX: K08.89 Other specified disorders of teeth and supporting structures (principal); K03.81 Cracked tooth; F17.200 Nicotine dependence, unspecified, uncomplicated
CPT/HCPCS: 99283; 96372 ×2; J1885; J1170

== ENCOUNTER 2019-01-17 10:48 | Emergency (ER) | payer OTHER ==
[2019-01-17 11:03] VITALS: RESP 18
[2019-01-17] MEDS ORDERED: KETOROLAC 30 MG/ML 1 ML VIAL IM STA (11:37)
[2019-01-17] MEDS ORDERED: MORPHINE SULFATE 4 MG/ML SYRINGE IM STA (11:37)
[2019-01-17 12:21] LABS: Basophils # (A) 0.2 k/uL (0-0.2); Basophils % (A) 2 %; Eosinophils # (A) 0.1 k/uL (0-0.7); Eosinophils % (A) 1 %; HCT 46.1 % (39.0-53.0); HGB 15.5 gm/dL (13.0-17.5); Lymphocytes # (A) 0.5 k/uL (1.0-4.8); Lymphocytes % (A) 5 %; MCH 31.1 pg (25.0-35.0); MCHC 33.6 g/dL (31.0-37.0); MCV 92.5 fL (80.0-100.0); Monocytes # (A) 0.5 k/uL (0-1.0); Monocytes % (A) 5 %; Neutrophils # (A) 8.6 k/uL (1.3-7.7); Neutrophils % (A) 85 %; Platelet Count 228 k/uL (150-450); RBC 4.98 m/uL (4.30-5.90); RDW 12.5 % (11.5-15.5); WBC 10.1 k/uL (3.8-10.6)
--- NOTE | 2019-01-17 12:22 | ED ---
ENT HPI - General Chief complaint: Dental/Oral Stated complaint: dental pain Time Seen by Provider: 01/17/19 11:13 Source: patient Mode of arrival: ambulatory Limitations: no limitations - History of Present Illness Initial comments: Patient is a 38-year-old male presenting to the emergency department with complaint of dental pain for 3 days now. This is patient's fourth visit in the last 2 days for same complaint. Patient states he does have an appointment with a dentist today at 3 PM, however the pain is so severe that he return to the ER. Patient states he has been nauseous, sweating and having chills and states he thinks he is going into sepsis. Patient states he was feeling better yesterday after his pain medications but when he woke up this morning the pain has all returned and he is not feeling well. Patient states he took the initial few doses of penicillin but has yet to go get the rest of the penicillin from the pharmacy. Patient denies fever, vomiting, diarrhea. Patient has not taken any other [id number] Motrin or Tylenol yet today. Patient has no other complaints at this time. Upon arrival to the ER, vital signs are stable, afebrile. - Related Data Home Medications Medication Instructions Recorded Confirmed Loratadine [Claritin] 10 mg PO DAILY 01/28/18 08/04/18 Acetaminophen [Tylenol] 1,000 mg PO Q4-6H PRN 08/04/18 08/04/18 Previous Rx's Medication Instructions Recorded Cyclobenzaprine [Flexeril] 10 mg PO TID #15 tab 08/04/18 Ibuprofen [Motrin] 600 mg PO Q8HR PRN #30 tab 08/04/18 predniSONE 50 mg PO DAILY #5 tablet 08/04/18 Albuterol Inhaler [Ventolin Hfa 1 - 2 puff INHALATION RT-Q6H PRN 7 08/21/18 Inhaler] Days #1 inhaler Azithromycin [Zithromax] 0 mg PO DIRECTED #6 tab 08/21/18 predniSONE 20 mg PO DAILY 5 Days #5 tab 08/21/18 Ibuprofen [Motrin] 600 mg PO Q6HR PRN #20 tab 01/15/19 Penicillin V Potassium [Pen Vee K] 500 mg PO Q6H 10 Days #40 tablet 01/15/19 Allergies Allergy/AdvReac Type Severity Reaction Status Date / Time No Known Allergies Allergy Verified 01/17/19 11:01 Review of Systems ROS Statement: Those systems with pertinent positive or pertinent negative responses have been documented in the HPI. ROS Other: All systems not noted in ROS Statement are negative. Past Medical History Past Medical History: No Reported History Additional Past Medical History / Comment(s): heat stroke summer 2013, migraines History of Any Multi-Drug Resistant Organisms: None Reported Past Surgical History: Orthopedic Surgery, Tonsillectomy Additional Past Surgical History / Comment(s): left foot surgery Past Psychological History: Anxiety, Depression Smoking Status: Current every day smoker Past Alcohol Use History: Occasional Past Drug Use History: None Reported - Past Family History Brother(s) Additional Family Medical History / Comment(s): Lupus Mother Family Medical History: Hypertension Additional Family Medical History / Comment(s): Lupus General Exam - General Exam Comments Initial Comments: GENERAL: Well-appearing, well-nourished and in no acute distress, but appears uncomfortable. HEAD: Atraumatic, normocephalic. EYES: Pupils equal round and reactive to light, extraocular movements intact, sclera anicteric, conjunctiva are normal. ENT: TMs normal, nares patent, oropharynx clear without exudates. Moist mucous membranes. There is a dental fracture of the right lower tooth, #30. There is no surrounding gingival erythema. No signs of a dental abscess. NECK: Normal range of motion, supple without lymphadenopathy or JVD. LUNGS: Breath sounds clear to auscultation bilaterally and equal. No wheezes rales or rhonchi. HEART: Regular rate and rhythm without murmurs, rubs or gallops. EXTREMITIES: Normal range of motion, no pitting or edema. No clubbing or cyanosis. NEUROLOGICAL: Cranial nerves II through XII grossly intact. Normal speech, normal gait. PSYCH: Normal mood, normal affect. SKIN: Warm, Dry, normal turgor, no rashes or lesions noted. Limitations: no limitations Course Vital Signs 01/17/19 01/17/19 11:01 13:00 Temperature 97.5 F L 98.1 F Pulse Rate 92 75 Respiratory 18 18 Rate Blood Pressure 124/60 120/82 O2 Sat by Pulse 99 97 Oximetry Medical Decision Making - Medical Decision Making Patient is 38-year-old male presenting for dental pain. This is patient's fourth visit in 2 days for same complaint. Patient also has an appointment with the dentist today at 3 PM. Patient is worried that he started going to sepsis. Patient's vital signs are stable. Lab work shows no acute abnormalities. Patient was given IM pain medication and urged to go to the dentist for further management of this pain. Patient is agreeable with this plan of care. Patient is stable for discharge at this time. Return parameters were discussed with the patient he verbalizes understanding. Case discussed with Dr. Snyder. - Lab Data Result diagrams: 01/17/19 11:54 01/17/19 11:54 Lab Results 01/17/19 01/17/19 Range/Units 11:54 11:54 WBC 10.1 (3.8-10.6) k/uL RBC 4.98 (4.30-5.90) m/uL Hgb 15.5 (13.0-17.5) gm/dL Hct 46.1 (39.0-53.0) % MCV 92.5 (80.0-100.0) fL MCH 31.1 (25.0-35.0) pg MCHC 33.6 (31.0-37.0) g/dL RDW 12.5 (11.5-15.5) % Plt Count 228 (150-450) k/uL Neutrophils % 85 % Lymphocytes % 5 % Monocytes % 5 % Eosinophils % 1 % Basophils % 2 % Neutrophils # 8.6 H (1.3-7.7) k/uL Lymphocytes # 0.5 L (1.0-4.8) k/uL Monocytes # 0.5 (0-1.0) k/uL Eosinophils # 0.1 (0-0.7) k/uL Basophils # 0.2 (0-0.2) k/uL Sodium 137 (137-145) mmol/L Potassium 4.5 (3.5-5.1) mmol/L Chloride 105 (98-107) mmol/L Carbon Dioxide 23 (22-30) mmol/L Anion Gap 9 mmol/L BUN 10 (9-20) mg/dL Creatinine 0.69 (0.66-1.25) mg/dL Est GFR (CKD-EPI)AfAm >90 (>60 ml/min/1.73 sqM) Est GFR (CKD-EPI)NonAf >90 (>60 ml/min/1.73 sqM) Glucose 102 H (74-99) mg/dL Calcium 9.1 (8.4-10.2) mg/dL Disposition Clinical Impression: Pain, dental Disposition: HOME SELF-CARE Condition: Stable Instructions (If sedation given, give patient instructions): Toothache (ED) Additional Instructions: Please return to the Emergency Department if symptoms worsen or any other concerns. Follow-up with dentist today at 3 PM as discussed. Continue with penicillin antibiotic. Is patient prescribed a controlled substance at d/c from ED?: No Referrals: Gabriel Roman MD [Primary Care Provider] - 1-2 days
[2019-01-17 12:28] LABS: African American GFR (CKD) >90 (>60 ml/min/1.73 sqM); Anion Gap 9 mmol/L; Blood Urea Nitrogen 10 mg/dL (9-20); Calcium 9.1 mg/dL (8.4-10.2); Carbon Dioxide 23 mmol/L (22-30); Chloride 105 mmol/L (98-107); Glucose 102 mg/dL (74-99); Non-African American GFR(CKD) >90 (>60 ml/min/1.73 sqM); Potassium 4.5 mmol/L (3.5-5.1); Sodium 137 mmol/L (137-145)
[2019-01-17 13:01] VITALS: BP 120/82; PULSE 75; TEMP 98.1
== END 2019-01-17 13:01 | disposition home or self-care (01) ==
LOC: EC 10:48
DX: K08.89 Other specified disorders of teeth and supporting structures (principal); F17.200 Nicotine dependence, unspecified, uncomplicated
CPT/HCPCS: 36415; 80048; 85025; 99283; 96372 ×2; J2270; J1885

== ENCOUNTER 2019-01-19 08:05 | Emergency (ER) | payer OTHER ==
[2019-01-19] MEDS ORDERED: CLINDAMYCIN 150 MG/ML 4 ML VIAL IM STA (08:25)
[2019-01-19] MEDS ORDERED: KETOROLAC 30 MG/ML 1 ML VIAL IM STA (08:25)
[2019-01-19] MEDS ORDERED: HYDROcodone/APAP 5-325MG 1 EACH TAB PO STA (08:25)
--- NOTE | 2019-01-19 08:31 | ED ---
ENT HPI - General Chief complaint: Dental/Oral Stated complaint: dental pain-revisit Time Seen by Provider: 01/19/19 08:07 Source: patient, RN notes reviewed, old records reviewed Mode of arrival: ambulatory Limitations: no limitations - History of Present Illness Initial comments: This patient's a 38-year-old male, who is been here 5 times past week or concern for right-sided dental pain. He reports that on Thursday he followed up with the dental clinic and had his tooth removed. He states since that time he's been having some pain, and states that he feels like there is still portions of the teeth remaining in his gum. Patient states he called the dental clinic today but is not able to follow-up with them as the dentist is not in today. The dentist will not be in until tomorrow. Patient states that he is been taking penicillin, doing salt water rinses and everything else to help with the dental pain and concern for infection. - Related Data Home Medications Medication Instructions Recorded Confirmed Loratadine [Claritin] 10 mg PO DAILY 01/28/18 08/04/18 Acetaminophen [Tylenol] 1,000 mg PO Q4-6H PRN 08/04/18 08/04/18 Previous Rx's Medication Instructions Recorded Cyclobenzaprine [Flexeril] 10 mg PO TID #15 tab 08/04/18 Ibuprofen [Motrin] 600 mg PO Q8HR PRN #30 tab 08/04/18 predniSONE 50 mg PO DAILY #5 tablet 08/04/18 Albuterol Inhaler [Ventolin Hfa 1 - 2 puff INHALATION RT-Q6H PRN 7 08/21/18 Inhaler] Days #1 inhaler Azithromycin [Zithromax] 0 mg PO DIRECTED #6 tab 08/21/18 predniSONE 20 mg PO DAILY 5 Days #5 tab 08/21/18 Ibuprofen [Motrin] 600 mg PO Q6HR PRN #20 tab 01/15/19 Penicillin V Potassium [Pen Vee K] 500 mg PO Q6H 10 Days #40 tablet 01/15/19 Clindamycin [Cleocin] 450 mg PO TID 7 Days capsule 01/19/19 Allergies Allergy/AdvReac Type Severity Reaction Status Date / Time No Known Allergies Allergy Verified 01/19/19 08:09 Review of Systems ROS Statement: Those systems with pertinent positive or pertinent negative responses have been documented in the HPI. ROS Other: All systems not noted in ROS Statement are negative. Past Medical History Past Medical History: No Reported History Additional Past Medical History / Comment(s): heat stroke summer 2013, migraines History of Any Multi-Drug Resistant Organisms: None Reported Past Surgical History: Orthopedic Surgery, Tonsillectomy Additional Past Surgical History / Comment(s): left foot surgery Past Psychological History: Anxiety, Depression Smoking Status: Current every day smoker Past Alcohol Use History: Occasional Past Drug Use History: None Reported - Past Family History Brother(s) Additional Family Medical History / Comment(s): Lupus Mother Family Medical History: Hypertension Additional Family Medical History / Comment(s): Lupus General Exam - General Exam Comments Initial Comments: This is a 38-year-old male. No significant distress. Limitations: no limitations General appearance: alert, in no apparent distress Head exam: Present: atraumatic, normocephalic, normal inspection Eye exam: Present: normal appearance, PERRL, EOMI. Absent: scleral icterus, conjunctival injection, periorbital swelling ENT exam: Present: normal exam, mucous membranes moist. Absent: normal oropharynx (General poor dentition. Evidence of tooth #16 or move. The gum site appears erythematous, edematous. No retained tooth that is palpable on examination. Patient is tender over the area. No trismus. No significant swelling over the lower jaw.) Neck exam: Present: normal inspection. Absent: tenderness, meningismus, lymphadenopathy Respiratory exam: Present: normal lung sounds bilaterally. Absent: respiratory distress, wheezes, rales, rhonchi, stridor Cardiovascular Exam: Present: regular rate, normal rhythm, normal heart sounds. Absent: systolic murmur, diastolic murmur, rubs, gallop, clicks GI/Abdominal exam: Present: soft, normal bowel sounds. Absent: distended, tenderness, guarding, rebound, rigid Back exam: Present: normal inspection Neurological exam: Present: alert, oriented X3, CN II-XII intact Psychiatric exam: Present: normal affect, normal mood Skin exam: Present: warm, dry, intact, normal color. Absent: rash Course Vital Signs 01/19/19 01/19/19 08:07 08:16 Temperature 97.3 F L Pulse Rate 56 L Respiratory 16 20 Rate Blood Pressure 128/81 O2 Sat by Pulse 97 Oximetry Medical Decision Making - Medical Decision Making 38-year-old male presents emergency department today 5 times for dental pain. He's been on Pen-Vee K for the past 5 days. Patient states follow-up with dentist and had the tooth removed on Thursday. Since that he's been having pain. Patient at this time reports the dentist told him it was infected. Patient has been on the antibiotics for this long, discussed that we can try a different antibiotic clindamycin. He was given IM pain medication and I am clindamycin and emergency department. Discussed that he follow up with dentist tomorrow. All questions were answered. Disposition Clinical Impression: Pain, dental Disposition: HOME SELF-CARE Condition: Good Instructions (If sedation given, give patient instructions): Toothache (ED) Additional Instructions: Please use medication as discussed. Please follow up with Dentist tomorrow. Please return to the emergency room if your symptoms increase or worsen or for any other concerns. Prescriptions: Clindamycin [Cleocin] 450 mg PO TID 7 Days capsule Is patient prescribed a controlled substance at d/c from ED?: No Referrals: Gabriel Roman MD [Primary Care Provider] - 1-2 days Time of Disposition: 08:30
[2019-01-19] MEDS ORDERED: ACET/COD 300 MG/30 MG STARTER PACK 6 TAB BTL PO STA (09:03)
[2019-01-19 09:12] VITALS: BP 143/90; PULSE 68; RESP 18; TEMP 98
== END 2019-01-19 09:13 | disposition home or self-care (01) ==
LOC: EC 08:05
DX: K08.89 Other specified disorders of teeth and supporting structures (principal); F17.200 Nicotine dependence, unspecified, uncomplicated; Z98.818 Other dental procedure status
CPT/HCPCS: 99283; 96372 ×2; J1885

== ENCOUNTER 2019-01-21 19:22 | Emergency (ER) | payer OTHER ==
[2019-01-21 19:27] VITALS: BP 159/89; PULSE 87; RESP 16; TEMP 97.6
[2019-01-21] MEDS ORDERED: KETOROLAC 60 MG/2 ML VIAL IM STA (19:42)
--- NOTE | 2019-01-21 19:48 | ED ---
General Adult HPI - General Chief complaint: Dental/Oral Stated complaint: Tooth & Jaw pain Time Seen by Provider: 01/21/19 19:29 Source: patient, RN notes reviewed, old records reviewed Mode of arrival: ambulatory Limitations: no limitations - History of Present Illness Initial comments: 38-year-old male patient presents ED chief complaint of right lower dental pain. Patient reports this is his sixth presentation for this complaint in the last week. Patient reports that he is currently on clindamycin. Patient reports that he had an infected tooth removed on Thursday. Patient reports that he has had continued pain since. He went to the dentist for a revisit yesterday where he reopened the incision to remove a piece of tissue. Patient was continues to have right lower dental pain. Denies any other complaints at this time. Systemic: Pt denies fatigue, fever/chills, rash. Pt denies weakness, night sweats, weight loss. Neuro: Pt denies headache, visual disturbances, syncope or pre-syncope. HEENT: Pt denies ocular discharge or irritation, otalgia, rhinorrhea, pharyngitis or notable lymphadenopathy. Cardiopulmonary: Pt denies chest pain, SOB, heart palpitations, dyspnea on exertion. Abdominal/GI: Pt denies abdominal pain, n/v/d. : Pt denies dysuria, burning w/ urination, frequency/urgency. Denies new onset urinary or bowel incontinence. MSK: Pt denies myalgia, loss of strength or function in extremities. Neuro: Pt denies new onset weakness, paresthesias. - Related Data Home Medications Medication Instructions Recorded Confirmed Loratadine [Claritin] 10 mg PO DAILY 01/28/18 08/04/18 Acetaminophen [Tylenol] 1,000 mg PO Q4-6H PRN 08/04/18 08/04/18 Previous Rx's Medication Instructions Recorded Cyclobenzaprine [Flexeril] 10 mg PO TID #15 tab 08/04/18 Ibuprofen [Motrin] 600 mg PO Q8HR PRN #30 tab 08/04/18 predniSONE 50 mg PO DAILY #5 tablet 08/04/18 Albuterol Inhaler [Ventolin Hfa 1 - 2 puff INHALATION RT-Q6H PRN 7 08/21/18 Inhaler] Days #1 inhaler Azithromycin [Zithromax] 0 mg PO DIRECTED #6 tab 08/21/18 predniSONE 20 mg PO DAILY 5 Days #5 tab 08/21/18 Ibuprofen [Motrin] 600 mg PO Q6HR PRN #20 tab 01/15/19 Penicillin V Potassium [Pen Vee K] 500 mg PO Q6H 10 Days #40 tablet 01/15/19 Clindamycin [Cleocin] 450 mg PO TID 7 Days capsule 01/19/19 Allergies Allergy/AdvReac Type Severity Reaction Status Date / Time No Known Allergies Allergy Verified 01/21/19 19:25 Review of Systems ROS Statement: Those systems with pertinent positive or pertinent negative responses have been documented in the HPI. ROS Other: All systems not noted in ROS Statement are negative. Past Medical History Past Medical History: No Reported History Additional Past Medical History / Comment(s): heat stroke summer 2013, migraines History of Any Multi-Drug Resistant Organisms: None Reported Past Surgical History: Orthopedic Surgery, Tonsillectomy Additional Past Surgical History / Comment(s): left foot surgery Past Psychological History: Anxiety, Depression Smoking Status: Current every day smoker Past Alcohol Use History: Occasional Past Drug Use History: None Reported - Past Family History Brother(s) Additional Family Medical History / Comment(s): Lupus Mother Family Medical History: Hypertension Additional Family Medical History / Comment(s): Lupus General Exam - General Exam Comments Initial Comments: Constitutional: NAD, AOX3, Pt has pleasant affect. HEENT: NC/AT, trachea midline, neck supple, no lymphadenopathy. Posterior pharynx non erythematous, without exudates. External ears appear normal, without discharge. Mucous membranes moist. Eyes PERRLA, EOM intact. There is no scleral icterus. No pallor noted. Dental exam displayed poor dentition in right lower jaw region. No signs of infection. No drainage, no fluctuance, no erythema. Cardiopulmonary: RRR, no murmurs, rubs or gallops, no JVD noted. Lungs CTAB in anterior and posterior park. No peripheral edema. Abdominal exam: Abdomen soft and non-distended. Abdomen non-tender to palpation in all 4 quadrants. Bowel sounds active in LLQ. No hepatosplenomegaly. No ecchymosis Neuro: CN II-XII grossly intact. No nuchal rigidity. No raccon eyes, no londono sign, no hemotympanum. No cervical spinal tenderness. MSK: No posterior calf tenderness bilaterally, homans sign negative bilaterally. Posterior tibialis and radial pulse +2 bilaterally. Sensation intact in upper and lower extremities. Full active ROM in upper and lower extremities, 5/5 stregnth. Limitations: no limitations Course Vital Signs 01/21/19 19:25 Temperature 97.6 F Pulse Rate 87 Respiratory 16 Rate Blood Pressure 159/89 O2 Sat by Pulse 99 Oximetry Medical Decision Making - Medical Decision Making 38-year-old male patient presents ED chief complaint of right lower dental pain. Patient reports this is his sixth presentation for this complaint in the last week. Patient reports that he is currently on clindamycin. Patient reports that he had an infected tooth removed on Thursday. Patient reports that he has had continued pain since. He went to the dentist for a revisit yesterday where he reopened the incision to remove a piece of tissue. Patient was continues to have right lower dental pain. Denies any other complaints at this time. Patient vital signs stable, afebrile. Physical exam displayed no signs of infection within the mouth. No discharge, no fluctuance, no erythema. Patient denies any fevers chills at home, signs of infection. Plain film was negative. Patient experiencing postop pain. Patient will be discharged will have outpatient follow-up with dentist and return to ER if condition worsens. Case discussed with Dr. Stephens. Disposition Clinical Impression: Pain, dental Disposition: HOME SELF-CARE Instructions (If sedation given, give patient instructions): Toothache (ED) Additional Instructions: Continue to take antibiotics. Follow-up with dentist tomorrow. Use Tylenol and Motrin as needed for pain. Return to ER if condition worsens in any way or if you start developing fevers or any other new symptoms. Is patient prescribed a controlled substance at d/c from ED?: No Referrals: Gabriel Roman MD [Primary Care Provider] - 1-2 days
--- NOTE | 2019-01-21 20:18 | XR ---
PROCEDURE: XR mandible complete - 5V DATE AND TIME: 01/21/2019 7:59 PM CLINICAL INDICATION: PHH; dental pain TECHNIQUE: Department protocol COMPARISON: None FINDINGS: The bones, joints, paranasal sinuses, and soft tissues are unremarkable. IMPRESSION: No acute radiographic process. Specifically, no right-sided finding to correlate with the clinical symptoms and signs.
[2019-01-21] MEDS ORDERED: ACET/COD 300 MG/30 MG STARTER PACK 6 TAB BTL PO STA (20:43)
== END 2019-01-21 20:51 | disposition home or self-care (01) ==
LOC: EC 19:22
DX: K08.89 Other specified disorders of teeth and supporting structures (principal); F17.200 Nicotine dependence, unspecified, uncomplicated; Z79.899 Other long term (current) drug therapy
CPT/HCPCS: 70110; 99283; 96372; J1885

== ENCOUNTER 2019-02-09 19:01 | Observation (INO) | payer OTHER ==
[2019-02-09] MEDS ORDERED: ONDANSETRON 4 MG/2 ML VIAL IVP STA (19:19)
[2019-02-09] MEDS ORDERED: HYDROmorphone 1 MG/ML 1 ML SYRINGE IVP STA ×2 (19:19→21:15)
[2019-02-09] MEDS ORDERED: SODIUM CHLORIDE 0.9% 1,000 ML IV STA (19:19)
--- NOTE | 2019-02-09 19:24 | ED ---
Abdominal Pain HPI - General Chief Complaint: Abdominal Pain Stated Complaint: diarrhea, abd pain Time Seen by Provider: 02/09/19 19:11 Source: patient Mode of arrival: ambulatory Limitations: no limitations - History of Present Illness Initial Comments: 38-year-old male patient with past medical history significant for diverticulitis is brought to the emergency department today for evaluation of left lower quadrant abdominal pain and diarrhea. The patient states that he has had diarrhea and pain to the left lower quadrant abdomen for the last week and a half. Patient states that over the last few days the diarrhea has become bloody. States that he has had fever and chills over the last week and a half. States a little over a week ago he was diagnosed with influenza, pneumonia, and an ear infection. He was started on Augmentin and prednisone. Patient states he went to see his physician when the abdominal symptoms started, she was concer morgan he may be having a flareup of diverticulitis as she started him on Flagyl and Bentyl yesterday. Patient states that this pain has worsened today. States he is having intense pressure and stabbing type pain to the left lower quadrant. States he has had some nausea but no vomiting. Denies any fever today. Patient also took PenVK and Clindamycin for a dental infection within the last couple of months. Patient denies any recent rash, shortness breath, chest pain, back pain, numbness, tingling, dizziness, weakness, hematuria, dysuria, urinary urgency, urinary frequency, headache, visual changes, or any other complaints. - Related Data Home Medications Medication Instructions Recorded Confirmed Diazepam [Valium] 10 mg PO BID PRN 02/09/19 02/09/19 Dicyclomine [Bentyl] 20 mg PO TID PRN 02/09/19 02/09/19 metroNIDAZOLE [Flagyl] 500 mg PO TID 02/09/19 02/09/19 Allergies Allergy/AdvReac Type Severity Reaction Status Date / Time No Known Allergies Allergy Verified 02/09/19 23:21 Review of Systems ROS Statement: Those systems with pertinent positive or pertinent negative responses have been documented in the HPI. ROS Other: All systems not noted in ROS Statement are negative. Past Medical History Past Medical History: No Reported History Additional Past Medical History / Comment(s): heat stroke summer 2013, migraines History of Any Multi-Drug Resistant Organisms: None Reported Past Surgical History: Orthopedic Surgery, Tonsillectomy Additional Past Surgical History / Comment(s): left foot surgery Past Psychological History: Anxiety, Depression Smoking Status: Current every day smoker Past Alcohol Use History: Occasional Past Drug Use History: None Reported - Past Family History Brother(s) Additional Family Medical History / Comment(s): Lupus Mother Family Medical History: Hypertension Additional Family Medical History / Comment(s): Lupus General Exam Limitations: no limitations General appearance: alert, in no apparent distress, other (This is a well- developed, well-nourished adult male patient in mild distress related to pain. Vital signs upon presentation are temperature 98.0F, pulse 126, respirations 20, blood pressure 135/82, pulse ox 95% on room air.) Eye exam: Present: normal appearance, PERRL, EOMI. Absent: scleral icterus, conjunctival injection, periorbital swelling ENT exam: Present: normal exam, normal oropharynx, mucous membranes moist Respiratory exam: Present: normal lung sounds bilaterally. Absent: respiratory distress, wheezes, rales, rhonchi, stridor Cardiovascular Exam: Present: normal rhythm, tachycardia, normal heart sounds. Absent: systolic murmur, diastolic murmur, rubs, gallop, clicks GI/Abdominal exam: Present: soft, tenderness (Left lower quadrant tenderness), normal bowel sounds. Absent: distended, guarding, rebound, rigid Neurological exam: Present: alert, oriented X3, CN II-XII intact Psychiatric exam: Present: normal affect, normal mood Skin exam: Present: warm, dry, intact, normal color. Absent: rash Course Vital Signs 02/09/19 02/09/19 19:02 23:22 Temperature 98 F Pulse Rate 126 H 89 Respiratory 20 16 Rate Blood Pressure 135/82 129/88 O2 Sat by Pulse 95 99 Oximetry Medical Decision Making - Medical Decision Making 38-year-old male patient presents to the emergency department today for evaluation of left lower quadrant abdominal pain and bloody diarrhea. Physical examination did reveal left lower quadrant tenderness. No CVA tenderness. He is afebrile with normal vital signs. Labs reviewed and did reveal mildly star vated white count at 10.9. The patient does have history of diverticulitis as well as recent multiple antibiotic use his including Pen-Vee K, clindamycin, Augmentin, and most recently Flagyl. C. diff was negative. CT abdomen and pelvis was obtained, shows no evidence for acute abdominal process. I did discuss findings and results with the patient. After receiving multiple doses of pain medication is still quite uncomfortable, rolling around on the floor. MAPS report was reviewed and was not concerning. We will admit for intractable abdominal pain. - Lab Data Result diagrams: 02/09/19 19:48 02/09/19 19:48 Lab Results 02/09/19 02/09/19 02/09/19 Range/Units 19:48 19:48 19:48 WBC 10.9 H (3.8-10.6) k/uL RBC 4.94 (4.30-5.90) m/uL Hgb 14.9 (13.0-17.5) gm/dL Hct 45.1 (39.0-53.0) % MCV 91.2 (80.0-100.0) fL MCH 30.1 (25.0-35.0) pg MCHC 33.0 (31.0-37.0) g/dL RDW 12.9 (11.5-15.5) % Plt Count 288 (150-450) k/uL Neutrophils % 70 % Lymphocytes % 22 % Monocytes % 5 % Eosinophils % 3 % Basophils % 0 % Neutrophils # 7.6 (1.3-7.7) k/uL Lymphocytes # 2.4 (1.0-4.8) k/uL Monocytes # 0.5 (0-1.0) k/uL Eosinophils # 0.3 (0-0.7) k/uL Basophils # 0.0 (0-0.2) k/uL Sodium 138 (137-145) mmol/L Potassium 4.0 (3.5-5.1) mmol/L Chloride 106 (98-107) mmol/L Carbon Dioxide 24 (22-30) mmol/L Anion Gap 8 mmol/L BUN 14 (9-20) mg/dL Creatinine 0.77 (0.66-1.25) mg/dL Est GFR (CKD-EPI)AfAm >90 (>60 ml/min/1.73 sqM) Est GFR (CKD-EPI)NonAf >90 (>60 ml/min/1.73 sqM) Glucose 108 H (74-99) mg/dL Plasma Lactic Acid [place] 1.4 (0.7-2.0) mmol/L Calcium 9.2 (8.4-10.2) mg/dL Total Bilirubin 0.6 (0.2-1.3) mg/dL AST 26 (17-59) U/L ALT 42 (21-72) U/L Alkaline Phosphatase 79 (38-126) U/L Total Protein 6.5 (6.3-8.2) g/dL Albumin 3.8 (3.5-5.0) g/dL Amylase 37 (30-110) U/L Lipase 86 (23-300) U/L Urine Color Urine Appearance (Clear) Urine pH (5.0-8.0) Ur Specific [place] (1.001-1.035) Urine Protein (Negative) Urine Glucose (UA) (Negative) Urine Ketones (Negative) Urine Blood (Negative) Urine Nitrite (Negative) Urine Bilirubin (Negative) Urine Urobilinogen (<2.0) mg/dL Ur Leukocyte Esterase (Negative) C. difficile (EIA) Intrp (Negative) 02/09/19 02/09/19 Range/Units 21:00 21:08 WBC (3.8-10.6) k/uL RBC (4.30-5.90) m/uL Hgb (13.0-17.5) gm/dL Hct (39.0-53.0) % MCV (80.0-100.0) fL MCH (25.0-35.0) pg MCHC (31.0-37.0) g/dL RDW (11.5-15.5) % Plt Count (150-450) k/uL Neutrophils % % Lymphocytes % % Monocytes % % Eosinophils % % Basophils % % Neutrophils # (1.3-7.7) k/uL Lymphocytes # (1.0-4.8) k/uL Monocytes # (0-1.0) k/uL Eosinophils # (0-0.7) k/uL Basophils # (0-0.2) k/uL Sodium (137-145) mmol/L Potassium (3.5-5.1) mmol/L Chloride (98-107) mmol/L Carbon Dioxide (22-30) mmol/L Anion Gap mmol/L BUN (9-20) mg/dL Creatinine (0.66-1.25) mg/dL Est GFR (CKD-EPI)AfAm (>60 ml/min/1.73 sqM) Est GFR (CKD-EPI)NonAf (>60 ml/min/1.73 sqM) Glucose (74-99) mg/dL Plasma Lactic Acid [place] (0.7-2.0) mmol/L Calcium (8.4-10.2) mg/dL Total Bilirubin (0.2-1.3) mg/dL AST (17-59) U/L ALT (21-72) U/L Alkaline Phosphatase (38-126) U/L Total Protein (6.3-8.2) g/dL Albumin (3.5-5.0) g/dL Amylase (30-110) U/L Lipase (23-300) U/L Urine Color Yellow Urine Appearance Clear (Clear) Urine pH 6.0 (5.0-8.0) Ur Specific [place] 1.050 H (1.001-1.035) Urine Protein Negative (Negative) Urine Glucose (UA) Negative (Negative) Urine Ketones Trace H (Negative) Urine Blood Negative (Negative) Urine Nitrite Negative (Negative) Urine Bilirubin Negative (Negative) Urine Urobilinogen <2.0 (<2.0) mg/dL Ur Leukocyte Esterase Negative (Negative) C. difficile (EIA) Intrp Negative (Negative) - Radiology Data Radiology results: report reviewed, image reviewed CT abdomen and pelvis with contrast was obtained. Report was reviewed in its entirety. Impression by Dr. Wilson shows negative computed tomography scan abdomen and pelvis. No adverse change compared to old exam. Normal appendix. I do not see cause for left lower quadrant pain. Disposition Clinical Impression: Left lower quadrant pain, Diarrhea Disposition: ADMITTED IP TO THIS [facility] Condition: Serious Referrals: Gabriel Roman MD [Primary Care Provider] - 1-2 days Decision to Admit Reason: Admit from EC Decision Date: 02/09/19 Decision Time: 23:00
[2019-02-09 20:07] LABS: Basophils % (A) 0 %; Eosinophils # (A) 0.3 k/uL (0-0.7); Eosinophils % (A) 3 %; HCT 45.1 % (39.0-53.0); HGB 14.9 gm/dL (13.0-17.5); Lymphocytes # (A) 2.4 k/uL (1.0-4.8); Lymphocytes % (A) 22 %; MCH 30.1 pg (25.0-35.0); MCV 91.2 fL (80.0-100.0); Mean Platelet Volume 7.4; Monocytes # (A) 0.5 k/uL (0-1.0); Monocytes % (A) 5 %; Neutrophils # (A) 7.6 k/uL (1.3-7.7); Neutrophils % (A) 70 %; Platelet Count 288 k/uL (150-450); RBC 4.94 m/uL (4.30-5.90); RDW 12.9 % (11.5-15.5); WBC 10.9 k/uL (3.8-10.6)
[2019-02-09 20:16] LABS: ALT 42 U/L (21-72); AST 26 U/L (17-59); African American GFR (CKD) >90 (>60 ml/min/1.73 sqM); Albumin 3.8 g/dL (3.5-5.0); Alkaline Phosphatase 79 U/L (38-126); Amylase 37 U/L (30-110); Anion Gap 8 mmol/L; Blood Urea Nitrogen 14 mg/dL (9-20); Calcium 9.2 mg/dL (8.4-10.2); Carbon Dioxide 24 mmol/L (22-30); Chloride 106 mmol/L (98-107); Glucose 108 mg/dL (74-99); Non-African American GFR(CKD) >90 (>60 ml/min/1.73 sqM); Sodium 138 mmol/L (137-145); Total Bilirubin 0.6 mg/dL (0.2-1.3); Total Protein 6.5 g/dL (6.3-8.2)
--- NOTE | 2019-02-09 20:58 | CT ---
EXAMINATION TYPE: CT abdomen pelvis w con DATE OF EXAM: 02/09/2019 COMPARISON: 03/27/2018 HISTORY: LLQ pain CT DLP: 1583.8 mGycm Automated exposure control for dose reduction was used. CONTRAST: Performed with IV Contrast, patient injected with 100 mL of Isovue 300. Lung bases are clear. There is no pleural effusion. Heart size is normal. There is no pericardial eff usion. Stomach is intact. Liver spleen pancreas gallbladder appear normal. Bile ducts are not dilated . There is no adrenal mass. Kidneys show satisfactory contrast opacification. There is no hydronephrosi s. Ureters are not dilated. There is no retroperitoneal adenopathy. Bladder distends smoothly. There is no inguinal hernia. There is no free fluid in the pelvis. The appendix appears normal. Appendix is medial. There is no mesenteric edema. There is no ascites or free air. There is no sign of a bowel obstructio n. Delayed images show normal contrast excretion by the kidneys. Lumbar vertebra have normal spacing and alignment. Posterior elements are intact. Bony pelvis is inta ct. IMPRESSION: Negative CT scan abdomen and pelvis. No adverse change compared to old exam. Normal appendix. I do no t see a cause for left lower quadrant pain.
[2019-02-09] MEDS ORDERED: DICYCLOMINE 10 MG/ML 2 ML AMP IM STA (21:15)
[2019-02-09 21:46] LABS: Appearance,Urine Clear (Clear); Bilirubin,Urine Negative (Negative); Blood,Urine Negative (Negative); Color,Urine Yellow; Glucose,Urine (UA) Negative (Negative); Ketones,Urine Trace (Negative); Leukocyte Esterase,Urine Negative (Negative); Nitrite,Urine Negative (Negative); Protein,Urine Negative (Negative); Urobilinogen,Urine <2.0 mg/dL (<2.0)
[2019-02-09] MEDS ORDERED: MORPHINE SULFATE 4 MG/ML SYRINGE IVP STA (22:37)
[2019-02-09] MEDS ORDERED: ONDANSETRON 4 MG/2 ML VIAL IVP PRN (22:56)
[2019-02-09] MEDS ORDERED: NALOXONE 0.4 MG/ML 1 ML VIAL IV PRN (22:56)
--- NOTE | 2019-02-10 00:31 | P.HPIM ---
History of Present Illness H&P Date: 02/10/19 Patient is a 38-year-old male with a PMH of diverticulitis presented to the ED with complaints of left lower quadrant abdominal pain. The patient reports that he has taken multiple antibiotics over the past 3 weeks. He initially was seen in the emergency room for dental pain a few days prior to 01/19 and was prescribed penicillin and was discharged with a follow-up to the dentist. The patient was seen at the dentist and underwent an extraction following which he was prescribed clindamycin on 01/19. The patient notes he subsequently developed symptoms of the flu and was diagnosed with influenza A along with a pneumonia for which she was prescribed Tamiflu and Augmentin on 02/01. Patient n otes that a few days following initiation of a new antibiotics, that he developed bloody diarrhea. He notes having 4-5 small bright red bloody bowel movements daily with left lower quadrant abdominal pain. The pain is nonradiating, 7 out of 10 at time of interview, at its worst is 10 out of 10, wi th some associated nausea, with no associated fever, chills, or vomiting. The patient was subsequently seen at his PMDs office on 02/08 when he was prescribed metronidazole and dicyclomine. He notes compliance with these medications. He otherwise denied chest pain, shortness of breath, dizziness, or palpitations. He underwent an extensive evaluation in the emergency room with a CT abdomen with contrast which revealed no acute abnormalities. Laboratory evaluation revealed a leukocytosis of 10.9, hemoglobin 14.9, platelets 288, sodium 138, potassium 4.0, BUN 14, creatinine 0.77, AST 26, ALT 42, alk phos 79, lipase 86, C. diff negative, and UA unremarkable. The patient is being admitted to medicine service for further management. Review of Systems Pertinent positives and negatives as discussed in HPI, a complete review of systems was performed and all other systems are negative. Past Medical History Past Medical History: No Reported History Additional Past Medical History / Comment(s): heat stroke summer 2013, migraines History of Any Multi-Drug Resistant Organisms: None Reported Past Surgical History: Orthopedic Surgery, Tonsillectomy Additional Past Surgical History / Comment(s): left foot surgery Past Psychological History: Anxiety, Depression Smoking Status: Current every day smoker Past Alcohol Use History: Occasional Past Drug Use History: None Reported - Past Family History Brother(s) Additional Family Medical History / Comment(s): Lupus Mother Family Medical History: Hypertension Additional Family Medical History / Comment(s): Lupus Medications and Allergies Home Medications Medication Instructions Recorded Confirmed Type Diazepam [Valium] 10 mg PO BID PRN 02/09/19 02/09/19 History Dicyclomine [Bentyl] 20 mg PO TID PRN 02/09/19 02/09/19 History metroNIDAZOLE [Flagyl] 500 mg PO TID 02/09/19 02/09/19 History Allergies Allergy/AdvReac Type Severity Reaction Status Date / Time No Known Allergies Allergy Verified 02/09/19 23:21 Physical Exam Vitals: Vital Signs Temp Pulse Resp BP Pulse Ox 02/09/19 23:22 89 16 129/88 99 02/09/19 19:02 98 F 126 H 20 135/82 95 Intake and Output 02/09/19 02/09/19 02/10/19 14:59 22:59 06:59 Other: Weight 113.398 kg General: non toxic, no distress, appears at stated age, normal weight Derm: no unusual rashes/lesions no unusual ecchymoses, warm, dry Head: atraumatic, normocephalic, symmetric Eyes: EOMI, no lid lag, anicteric sclera, pupils equal round reactive to light ENT: Nose and ears atraumatic, no thrush, no pharyngeal erythema Neck: No thyromegaly, no cervical lymphadenopathy, trachea midline, supple Mouth: no lip lesion, mucus membranes moist Cardiovascular: S1S2 reg, no murmur, positive posterior tibial pulse bilateral, no edema, capillary refill less than 2 seconds Lungs: CTA bilateral, no rhonchi, no rales , no accessory muscle use Abdominal: soft, left lower quadrant tenderness to palpation, no guarding, no appreciable organomegaly, normal bowel sounds Ext: no gross muscle atrophy, muscle strength 5 out of 5 in all 4 extremities grossly, no contractures, Neuro: CN II-XI grossly intact, light touch intact all 4 extremities, finger to nose within normal limits, Psych: Alert, oriented, appropriate affect Results CBC & Chem 7: 02/09/19 19:48 02/09/19 19:48 Labs: Abnormal Lab Results - Last 24 Hours (Table) 12/11/19 12/11/19 12/11/19 Range/Units 19:48 19:48 21:08 WBC 10.9 H (3.8-10.6) k/uL Glucose 108 H (74-99) mg/dL Ur Specific [place] 1.050 H (1.001-1.035) Urine Ketones Trace H (Negative) Assessment and Plan Plan: Bloody diarrhea with abdominal pain -Check stool culture and Lactoferrin -ID consult due to multiple on-going abxs -Will give Azithromycin 1 g following EKG -Hold off on remaining abxs for now -Pain control -C/w IVFs DVT prophylaxis -IPCDs The patient is admitted with an anticipated less than 2 midnight stay for evaluation of dysentery CODE STATUS: Full Code Discussed with: Patient Anticipated discharge date: 1-[address]: Home A total of 35 minutes was spent on the care of this complex patient more than 50% of the time was spent in counseling and care coordination.
[2019-02-10] MEDS: SODIUM CHLORIDE 0.9% 1,000 ML IV SCH ×2 (01:05→11:38)
[2019-02-10] MEDS: DIAZEPAM 5 MG TAB PO PRN ×2 (01:25→12:20)
[2019-02-10] MEDS: MORPHINE SULFATE 4 MG/ML SYRINGE IV PRN ×5 (02:57→20:16)
[2019-02-10] MEDS: DICYCLOMINE 20 MG TAB PO PRN ×2 (05:50→21:50)
--- NOTE | 2019-02-10 12:38 | P.CONS ---
History of Present Illness - Reason for Consult Consult date: 02/10/19 Bloody diarrhea - History of Present Illness This is a 38-year-old male with no significant past medical history. He does give history that he was hospitalized in the past for diverticulitis. This was March of this year which time he was hospitalized which was in the left side radiating to his pelvis and groin. He underwent a CAT scan of the abdomen pelvis at that time that was negative for intra-abdominal pathology. He was started on antibiotics for possible diverticulitis or enteritis. Patient was seen in consultation at that time by GI and was recommended at that time the patient have follow-up in the office, however, patient states that he was feeling better called the office did not think he needed follow-up. Patient and his gives history that at least 2-1/2 weeks ago he started having diarrhea at the same time he had a toothache develop in the right lower region. Records reviewed revealed the patient initially presented to emergency center on January 15 for dental pain for a cracked tooth on the bottom right side. He was given prescription for Pen-Vee K for 10 day course and was to follow up. Patient was seen again on January 16 and was provided the name address and phone number for [facility] dental [facility]. He came back to the emergency center for a second visit on January 16 again on the . He had a dentist appointment scheduled on January 17 at 3 PM and was instructed to continue antibiotics. He subsequently had a tooth extraction done and presented to the emergency center on January 19 due to pain and was placed on clindamycin for 7 day course. He continued to have pain and was scheduled to follow-up with dentist the next day. Patient states he had extraction of a piece of bone/tooth and after about 5 days the pain to his right jaw improved. Patient apparently continued to have diarrhea through this course of multiple antibiotics. He was subsequently treated for pneumonia and influenza. He mentions that he was on Tamiflu prednisone and inhaler and antibiotic. He completed his course of treatment. Patient noted that he had some blood when he wiped after having a bowel movement and a stool specimen was collected that did show a blood clot the size of a half dollar. He has had subsequent bowel move ments with blood the most recent was this morning with quarter sized blood clot. Patient relates that he was started on Flagyl and Bentyl on Thursday by his PCP. Patient presented to emergency center for evaluation for bloody diarrhea. He was found to be afebrile, white count 10.9, hemoglobin 14.9, creatinine 0.77, albumin 3.8. C. difficile toxin negative. Urinalysis ketone trace. CAT scan of the abdomen and pelvis revealed a negative exam. No adverse change compared to old exam. Normal appendix. The patient has been placed on the MedSur floor and GI is also on consult. Patient complains of severe pain in the left abdomen. Review of Systems Constitutional: Denies anorexia, Denies chills, Denies fever, Denies poor appetite, Denies weight loss Eyes: denies blurred vision, denies pain Ears, nose, mouth and throat: Denies headache, Denies nasal congestion, Denies nasal discharge, Denies sore throat, Denies vertigo Cardiovascular: Denies chest pain, Denies lightheadedness, Denies syncope Respiratory: Denies cough, Denies cough with sputum, Denies dyspnea, Denies excessive sputum, Denies hemoptysis, Denies respiratory infections, Denies wheezing Gastrointestinal: Reports abdominal pain, Reports bloating, Reports diarrhea, Reports melena, Denies coffee ground emesis, Denies jaundice, Denies loss of appetite, Denies nausea, Denies vomiting Genitourinary: Denies dysuria, Denies urinary retention Musculoskeletal: Denies gait dysfunction, Denies muscle weakness, Denies myalgias Integumentary: Denies pruritus, Denies rash, Denies wounds Neurological: Denies change in mentation, Denies change in speech, Denies numbness, Denies weakness Psychiatric: Denies anxiety, Denies depression Endocrine: Denies fatigue, Denies weight change Past Medical History Past Medical History: No Reported History Additional Past Medical History / Comment(s): heat stroke summer 2013, mi graines, diverticulitis History of Any Multi-Drug Resistant Organisms: None Reported Past Surgical History: Orthopedic Surgery, Tonsillectomy Additional Past Surgical History / Comment(s): left foot surgery Past Anesthesia/Blood Transfusion Reactions: No Reported Reaction Past Psychological History: Anxiety, Depression Smoking Status: Current every day smoker Past Alcohol Use History: Occasional Additional Past Alcohol Use History / Comment(s): Patient is a smoker of a half a pack per day for 19 years. He denies any marijuana, illicit drug use or alcohol use. He lives at home with his and children. There is a dog in the home. He denies any recent travel, no service. Past Drug Use History: None Reported - Past Family History Brother(s) Additional Family Medical History / Comment(s): Lupus Mother Family Medical History: Hypertension Additional Family Medical History / Comment(s): Lupus Medications and Allergies Home Medications Medication Instructions Recorded Confirmed Type Diazepam [Valium] 10 mg PO BID PRN 02/09/19 02/09/19 History Dicyclomine [Bentyl] 20 mg PO TID PRN 02/09/19 02/09/19 History metroNIDAZOLE [Flagyl] 500 mg PO TID 02/09/19 02/09/19 History Allergies Allergy/AdvReac Type Severity Reaction Status Date / Time No Known Allergies Allergy Verified 02/09/19 23:21 Physical Exam Vitals: Vital Signs Temp Pulse Pulse Resp BP BP Pulse Ox 02/10/19 05:00 97.8 F 62 16 115/67 96 02/10/19 01:36 98 F 75 17 133/87 97 02/09/19 23:22 89 16 129/88 99 02/09/19 19:02 98 F 126 H 20 135/82 95 Intake and Output 02/09/19 02/10/19 02/10/19 22:59 06:59 14:59 Intake Total 400 Balance 400 Intake: Intake, IV Titration 400 Amount Sodium Chloride 0.9% 1, 400 000 ml @ 100 mls/hr IV . Q10H [facility] Rx#:[id number] Other: Voiding Method Toilet # Voids 1 Weight 113.398 kg 112 kg Gen: This is a 38-year-old male. Patient is resting in bed and appears to be comfortable. Patient's is at bedside. HEENT: Head is atraumatic, normocephalic. Pupils equal, round. Sclerae is anicteric. Oral mucous membranes are moist. No thrush noted. Extractions noted on the right lower area with no signs of ecchymosis, erythema. NECK: Supple. No JVD. No lymphadenopathy. No thyromegaly. LUNGS: Clear to auscultation. No wheezes or rhonchi. No intercostal retractions. HEART: Regular rate and rhythm. No murmur. ABDOMEN: Soft. Bowel sounds are present. No masses. Left-sided into left lower quadrant tenderness. EXTREMITIES: No pedal edema. No calf tenderness. Dorsalis pedis +2 bilaterally. NEUROLOGICAL: Patient is awake, alert and oriented x3. Cranial nerves 2 through 12 are grossly intact. Results Results: Laboratory Results WBC 10.9 k/uL (3.8-10.6) H 02/09/19 19:48 RBC 4.94 m/uL (4.30-5.90) 02/09/19 19:48 Hgb 14.9 gm/dL (13.0-17.5) 02/09/19 19:48 Hct 45.1 % (39.0-53.0) 02/09/19 19:48 MCV 91.2 fL (80.0-100.0) 02/09/19 19:48 MCH 30.1 pg (25.0-35.0) 02/09/19 19:48 MCHC 33.0 g/dL (31.0-37.0) 02/09/19 19:48 RDW 12.9 % (11.5-15.5) 02/09/19 19:48 Plt Count 288 k/uL (150-450) 02/09/19 19:48 Neutrophils % 70 % 02/09/19 19:48 Lymphocytes % 22 % 02/09/19 19:48 Monocytes % 5 % 02/09/19 19:48 Eosinophils % 3 % 02/09/19 19:48 Basophils % 0 % 02/09/19 19:48 Neutrophils # 7.6 k/uL (1.3-7.7) 02/09/19 19:48 Lymphocytes # 2.4 k/uL (1.0-4.8) 02/09/19 19:48 Monocytes # 0.5 k/uL (0-1.0) 02/09/19 19:48 Eosinophils # 0.3 k/uL (0-0.7) 02/09/19 19:48 Basophils # 0.0 k/uL (0-0.2) 02/09/19 19:48 Sodium 138 mmol/L (137-145) 02/09/19 19:48 Potassium 4.0 mmol/L (3.5-5.1) 02/09/19 19:48 Chloride 106 mmol/L (98-107) 02/09/19 19:48 Carbon Dioxide 24 mmol/L (22-30) 02/09/19 19:48 Anion Gap 8 mmol/L 02/09/19 19:48 BUN 14 mg/dL (9-20) 02/09/19 19:48 Creatinine 0.77 mg/dL (0.66-1.25) 02/09/19 19:48 Est GFR (CKD-EPI)AfAm >90 (>60 ml/min/1.73 sqM) 02/09/19 19:48 Est GFR (CKD-EPI)NonAf >90 (>60 ml/min/1.73 sqM) 02/09/19 19:48 Glucose 108 mg/dL (74-99) H 02/09/19 19:48 Plasma Lactic Acid Lexa 1.4 mmol/L (0.7-2.0) 02/09/19 19:48 Calcium 9.2 mg/dL (8.4-10.2) 02/09/19 19:48 Total Bilirubin 0.6 mg/dL (0.2-1.3) 02/09/19 19:48 AST 26 U/L (17-59) 02/09/19 19:48 ALT 42 U/L (21-72) 02/09/19 19:48 Alkaline Phosphatase 79 U/L (38-126) 02/09/19 19:48 Total Protein 6.5 g/dL (6.3-8.2) 02/09/19 19:48 Albumin 3.8 g/dL (3.5-5.0) 02/09/19 19:48 Amylase 37 U/L (30-110) 02/09/19 19:48 Lipase 86 U/L (23-300) 02/09/19 19:48 Urine Color Yellow 02/09/19 21:08 Urine Appearance Clear (Clear) 02/09/19 21:08 Urine pH 6.0 (5.0-8.0) 02/09/19 21:08 Ur Specific Snelling 1.050 (1.001-1.035) H 02/09/19 21:08 Urine Protein Negative (Negative) 02/09/19 21:08 Urine Glucose (UA) Negative (Negative) 02/09/19 21:08 Urine Ketones Trace (Negative) H 02/09/19 21:08 Urine Blood Negative (Negative) 02/09/19 21:08 Urine Nitrite Negative (Negative) 02/09/19 21:08 Urine Bilirubin Negative (Negative) 02/09/19 21:08 Urine Urobilinogen <2.0 mg/dL (<2.0) 02/09/19 21:08 Ur Leukocyte Esterase Negative (Negative) 02/09/19 21:08 C. difficile (EIA) Intrp Negative (Negative) 02/09/19 21:00 CBC & Chem 7: 02/09/19 19:48 02/09/19 19:48 Labs: Abnormal Lab Results - Last 24 Hours (Table) 02/09/19 02/09/19 02/09/19 Range/Units 19:48 19:48 21:08 WBC 10.9 H (3.8-10.6) k/uL Glucose 108 H (74-99) mg/dL Ur Specific Snelling 1.050 H (1.001-1.035) Urine Ketones Trace H (Negative) Assessment and Plan Plan: This is a 38-year-old male presents to the hospital with bloody diarr hea along with left-sided abdominal pain. Diarrhea seems to have started sometime back in December. He has been on multiple courses of antibiotics due to a tooth infection requiring extraction. Antibiotics to be held at this time. C. difficile toxin has been negative. GI is on consult and patient will require colonoscopy once acute situation has resolved. Stool studies are in progress, blood culture is status received. Patient is currently on clear liquid diet and tolerating. He verbalizes wishing to have diet advanced. Continues supportive care. Further recommendations as patient progresses. The above dictated assessment and findings were discussed with Dr. Rust. The impression and plan of care have been directed as dictated. Anny Vegas nurse practitioner acting as scribe for Dr. Rust.
--- NOTE | 2019-02-10 14:42 | US ---
EXAMINATION TYPE: US abdomen complete DATE OF EXAM: 02/10/2019 COMPARISON: US & CT CLINICAL HISTORY: Abdominal pain, focus LLQ. LLQ pain EXAM MEASUREMENTS: Liver Length: 15.3 cm Gallbladder Wall: 0.3 cm CBD: 0.5 cm Spleen: 11.2 cm Right Kidney: 11.9 x 5.5 x 6.0 cm Left Kidney: 12.2 x 6.0 x 5.9 cm Pancreas: Obscured by bowel gas Liver: wnl Gallbladder: wnl Evidence for sonographic Sullivan's sign: No CBD: wnl Spleen: wnl Right Kidney: wnl Left Kidney: wnl Upper IVC: wnl Abd Aorta: Proximal portion gassed out, mid and distal wnl No abnormality visualized to account for pt's LLQ pain The liver is homogenous. The intrahepatic portion of the IVC and proximal abdominal aorta are within normal limits. There is no evidence of cholelithiasis. Common bile duct is unremarkable. The visu alized portions of the pancreas are homogenous. The spleen is unremarkable. Kidneys are symmetric a nd free of hydronephrosis. No renal lesions are seen. IMPRESSION: No distinct abnormality seen.
--- NOTE | 2019-02-10 14:53 | P.DS ---
Providers Date of admission: 02/10/19 00:00 Expected date of discharge: 02/10/19 Attending physician: Varun Daniels MD Consults: 02/10/19 00:33 Consult Physician Urgent Consulting Provider: Miah Rust Consult Reason/Comments: Bloody diarrhea Do you want consulting provider notified?: Yes 02/10/19 07:38 Consult Physician Urgent Consulting Provider: Awais Truong Consult Reason/Comments: bloody diarrhea Do you want consulting provider notified?: Yes Primary care physician: [facility] Course: Patient is a 38-year-old male with a PMH of diverticulitis presented to the ED with complaints of left lower quadrant abdominal pain. The patient reports that he has taken multiple antibiotics over the past 3 weeks. He initially was seen in the emergency room for dental pain a few days prior to 01/19 and was prescribed penicillin and was discharged with a follow-up to the dentist. The patient was seen at the dentist and underwent an extraction following which he was prescribed clindamycin on 01/19. The patient notes he subsequently developed symptoms of the flu and was diagnosed with influenza A along with a pneumonia for which she was prescribed Tamiflu and Augmentin on 02/01. Patient notes that a few days following initiation of a new antibiotics, that he developed bloody diarrhea. He notes having 4-5 small bright red bloody bowel movements daily with left lower quadrant abdominal pain. The pain is nonradiating, 7 out of 10 at time of interview, at its worst is 10 out of 10, with some associated nausea, with no associated fever, chills, or vomiting. The patient was subsequently seen at his PMDs office on 02/08 when he was prescribed metronidazole and dicyclomine. He notes compliance with these medications. He otherwise denied chest pain, shortness of breath, dizziness, or palpitations. Laboratory evaluation revealed a leukocytosis of 10.9, hemoglobin 14.9, platelets 288, sodium 138, potassium 4.0, BUN 14, creatinine 0.77, AST 26, ALT 42, alk phos 79, lipase 86, C. diff negative, and UA unremarkable. He underwent an extensive evaluation in the emergency room with a CT abdomen with contrast which revealed no acute abnormalities. Infectious disease was consulted, recommended discontinuation of all antibiotics and to obtain blood and stool cultures. Gastroenterology was consulted for hematochezia. Patient was seen and examined. No acute events overnight. Discussed with nursing, RN reports that patient had solid bowel movement witnessed with streaks of blood. Patient reports squeezing abdominal discomfort in the left lower quadrant. Pain is 7 out of 10 in severity. He denies any nausea or vomiting. No fever or chills. Patient reports abdominal pain is relieved by passing gas or burping. He denies any urinary symptoms. General: [non toxic], [no distress], [appears at stated age] Derm: [warm], [dry] Head: [atraumatic], [normocephalic], [symmetric] Eyes: [EOMI], [no lid lag], [anicteric sclera] Mouth: [no lip lesion], [mucus membranes moist] Cardiovascular: [S1S2 reg], [no murmur], [positive DP pulse bilateral], Lungs: [CTA bilateral], [no rhonchi, no rales] , [no accessory muscle use] Abdominal: [soft], [mild tenderness to palpation in the left lower quadrant without rebound], [no guarding], [no appreciable organomegaly] Ext: [no gross muscle atrophy], [no edema], [no contractures] Neuro: [no focal neuro deficits] Psych: [Alert], [oriented], [appropriate affect] Assessment and Plan Hematochezia with left lower quadrant abdominal pain Leukocytosis Stool lactoferrin positive. Recent completion of antibiotics including penicillin, Augmentin and Tamiflu. Was given Flagyl but PCP but has not been taking. C. diff negative. CT abdomen and pelvis negative for acute finding. Amylase and lipase negative. Urinalysis negative for leukocyte esterase or nitrites. Plans: Patient is hemodynamically stable. Hemoglobin is within normal limits. Possibly mild early diverticulitis. Antibiotics are not indicated at this time. Will need colonoscopy in 4-6 weeks after resolution of symptoms. Follow abdominal ultrasound left upper quadrant and gallbladder. Leukocytosis of 10.9. Likely reactive. No signs of infection. Plans: Continue to monitor. [Patient admitted for hematochezia and left lower quadrant abdominal pain. CT abdomen and pelvis unremarkable. Possibly early diverticulitis that does not require antibiotics. Plans on DC home if pain well-controlled and able to tolerate oral intake.] Pertinent Studies: CT abdomen and pelvis, abdominal ultrasound Patient Condition at Discharge: Stable Plan - Discharge Summary Discharge Rx Participant: No New Discharge Prescriptions: New Dicyclomine [Bentyl] 20 mg PO QID PRN #30 tab PRN Reason: Dyspepsia HYDROcodone/APAP 10-325MG [[place] 10-325] 1 tab PO Q4HR PRN 3 Days #18 tab PRN Reason: Pain Continue Diazepam [Valium] 10 mg PO BID PRN PRN Reason: Anxiety Discontinued metroNIDAZOLE [Flagyl] 500 mg PO TID Dicyclomine [Bentyl] 20 mg PO TID PRN PRN Reason: Nausea Discharge Medication List Diazepam [Valium] 10 mg PO BID PRN 02/09/19 [History] Dicyclomine [Bentyl] 20 mg PO QID PRN #30 tab 02/10/19 [Rx] HYDROcodone/APAP 10-325MG [[place] 10-325] 1 tab PO Q4HR PRN 3 Days #18 tab 02/10/19 [Rx] Follow up Appointment(s)/Referral(s): Gabriel Roman MD [Primary Care Provider] - 1-2 days Awais Truong MD [STAFF PHYSICIAN] - 4 Weeks Activity/Diet/Wound Care/Special Instructions: Diet: Low fiber Follow-up PCP within 3 days of discharge. Follow-up with GI within 4 weeks of discharge. He will need a colonoscopy within 4-6 weeks of symptom resolution. No antibiotics. Discharge Disposition: HOME SELF-CARE
--- NOTE | 2019-02-10 16:18 | P.CON ---
Consult Note - . Consult date: 02/10/19 Assessment/Plan:: This is a 38-year-old male with no significant past medical history. He does give history that he was hospitalized in the past for diverticulitis. This was March of this year which time he was hospitalized which was in the left side radiating to his pelvis and groin. He underwent a CAT scan of the abdomen pelvis at that time that was negative for intra-abdominal pathology. He was started on antibiotics for possible diverticulitis or enteritis. Patient was seen in consultation at that time by GI and was recommended at that time the patient have follow-up in the office, however, patient states that he was feeling better called the office did not think he needed follow-up. Patient and his gives history that at least 2-1/2 weeks ago he started having diarrhea at the same time he had a toothache develop in the right lower region. Records reviewed revealed the patient initially presented to [facility] emergency center on January 15 for dental pain for a cracked tooth on the bottom right side. He was given prescription for Pen-Vee K for 10 day course and was to follow up. Patient was seen again on January 16 and was provided the name address and phone number for [facility] dental [facility]. He came back to the emergency center for a second visit on January 16 again on the . He had a dentist appointment scheduled on January 17 at 3 PM and was instructed to continue antibiotics. He subsequently had a tooth extraction done and presented to the emergency center on January 19 due to pain and was placed on clindamycin for 7 day course. He continued to have pain and was scheduled to follow-up with dentist the next day. Patient states he had extraction of a piece of bone/tooth and after about 5 days the pain to his right jaw improved. Patient apparently continued to have diarrhea through this course of multiple antibiotics. He was subsequently treated for pneumonia and influenza. He mentions that he was on Tamiflu prednisone and inhaler and antibiotic. He completed his course of treatment. Patient noted that he had some blood when he wiped after having a bowel movement and a stool specimen was collected that did show a blood clot the size of a half dollar. He has had subsequent bowel movements with blood the most recent was this morning with quarter sized blood clot. Patient relates that he was started on Flagyl and Bentyl on Kar[place] by his PCP. Please see the consult note as dictated by per nurse practitioner Mrs. Vegas. 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 Your became ill nearly 2 weeks ago with fever chills cough and was on evidence of acute influenza a it appears that he took most of this course of Tamiflu. He however is having great difficulties with his oral cavity due to a infected tooth that now has been extracted including a second procedure to remove some bony fragment. The oral cavity is feeling better but he now has the intense gastrointestinal difficulty. He has significant pain to the left lower quadrant area. It will make him bend over in pain because it is so severe. He's had some blood in his stool although not consistently. It has not seen much today. The. The outpatient setting he was started on some Flagyl and Bentyl for his abdominal pain. It did not impact greatly. Patient is related to have a prior history of diverticulitis of the review of the computed tomography scan does not reveal an extensive amount of diverticulosis. At this time we'll recheck his influenza and ensure that that has resolved. The the patient's intense abdominal pain has several potential factors. Given the fact that he has had cellulitis in the past concern for the potential for an inflammatory bowel disease or other invasive process in the colon, he has been seen by gastroenterology and there is plans for outpatient endoscopy. However given the current acuity and the fact that it followed a viral infection, the intensity of the discomfort in the region in the left lower quadrant radiating to the suprapubic area, mesenteric lymphadenitis could cause severe inflammation and pain in the region and consequently a few doses of Solu- Medrol been requested to see if this cannot impact. If he has rapid resolution this is more likely a viral-related process. He's had some response to pain medication. His hemoglobin is normal, it is unlikely is had extensive gastrointestinal bleeding and consequently a few doses of Toradol also been requested to try to improve his severe pain. Agree with evaluation, assessment and plan as dictated by nurse practitioner Mrs. Anny Vegas.
[2019-02-10] MEDS: KETOROLAC 30 MG/ML 1 ML VIAL IVP SCH ×2 (17:22→23:09)
[2019-02-10] MEDS: methylPREDNISolone SOD SUCCI 40 MG/ML 1 ML VIAL IV SCH ×2 (17:23→23:09)
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
[2019-02-11] MEDS: MORPHINE SULFATE 4 MG/ML SYRINGE IV PRN ×2 (01:40→07:57)
[2019-02-11] MEDS: DIAZEPAM 5 MG TAB PO PRN (01:41)
[2019-02-11] MEDS: KETOROLAC 30 MG/ML 1 ML VIAL IVP SCH ×3 (06:30→17:53)
[2019-02-11 07:48] VITALS: RESP 16; TEMP 97.7
[2019-02-11] MEDS: methylPREDNISolone SOD SUCCI 40 MG/ML 1 ML VIAL IV SCH ×2 (07:57→15:55)
[2019-02-11] MEDS ORDERED: HYDROCORTISONE SUPPOSITORY 25 MG SUPP RECTAL SCH (09:00)
[2019-02-11] MEDS ORDERED: HYDROmorphone 1 MG/ML 1 ML SYRINGE IVP STA (09:11)
[2019-02-11] MEDS ORDERED: HYDROmorphone 1 MG/ML 1 ML SYRINGE IVP PRN (09:11)
--- NOTE | 2019-02-11 09:16 | P.PN ---
Subjective Progress Note Date: 02/11/19 Principal diagnosis: abdominal pain, diarrhea Patient was seen and examined. No acute events overnight. Patient continues to report excruciating left lower quadrant abdominal pain mostly unrelieved by morphine. States that bowel movements make the pain worse. Also complains of stringy bowel movements with mucus and streaks of blood. Endorses poor appetite. Denies any chest pain, shortness of breath or palpitations. No nausea or vomiting. No fever or chills. Objective - Vital Signs Vital signs: Vital Signs Temp 97.7 F 02/11/19 07:47 Pulse 90 02/11/19 07:47 Resp 16 02/11/19 07:47 BP 126/65 02/11/19 07:47 Pulse Ox 95 02/11/19 07:47 Intake & Output 02/10/19 02/11/19 02/11/19 18:59 06:59 18:59 Intake Total 800 1340 Balance 800 1340 Intake: Intake, IV Titration 800 1100 Amount Sodium Chloride 0.9% 1, 800 1100 000 ml @ 100 mls/hr IV . Q10H [facility] Rx#:[id number] Oral 240 Other: Voiding Method Toilet Toilet # Voids 4 # Bowel Movements 1 - Exam General: [non toxic], [no distress], [appears at stated age] Derm: [warm], [dry] Head: [atraumatic], [normocephalic], [symmetric] Eyes: [EOMI], [no lid lag], [anicteric sclera] Mouth: [no lip lesion], [mucus membranes moist] Cardiovascular: [S1S2 reg], [no murmur], [positive DP pulse bilateral], Lungs: [CTA bilateral], [no rhonchi, no rales] , [no accessory muscle use] Abdominal: [soft], [tenderness with deep palpation in the left lower quadrant without rebound], [no guarding], [no appreciable organomegaly] Ext: [no gross muscle atrophy], [no edema], [no contractures] Neuro: [no focal neuro deficits] Psych: [Alert], [oriented], [appropriate affect] - Labs CBC & Chem 7: 02/09/19 19:48 02/09/19 19:48 Labs: Abnormal Lab Results - Last 24 Hours (Table) 02/09/19 Range/Units 21:00 Stool Lactoferrin POSITIVE H (NEGATIVE) Microbiology - Last 24 Hours (Table) 02/09/19 19:48 Blood Culture - Preliminary Blood No Growth after 24 hours 02/09/19 21:00 Stool Culture - Preliminary Stool Assessment and Plan Assessment: Assessment and Plan Hematochezia with left lower quadrant abdominal pain Leukocytosis Stool lactoferrin positive. Recent completion of antibiotics including penicillin, Augmentin and Tamiflu. Was given Flagyl but PCP but has not been taking. C. diff negative. CT abdomen and pelvis negative for acute finding. Amylase and lipase negative. Urinalysis negative for leukocyte esterase or n itrites. Abdominal ultrasound negative. Concerns for mesenteric lymphadenitis by ID. Plans: Patient is hemodynamically stable. Hemoglobin is within normal limits. Will need colonoscopy in 4-6 weeks after resolution of symptoms. We will repeat CT abdomen and pelvis with oral contrast this time as his symptoms are persistent and not relieved with morphine, trial of IV steroids. Follow CRP. Leukocytosis of 10.9. Likely reactive. No signs of infection. Flu negative. Pl ans: Repeat CBC. [Patient admitted for hematochezia and left lower quadrant abdominal pain. Pain is persistent and severe not relieved with morphine. Plans for repeat CT with oral contrast. He is pending clinical improvement. Likely DC in 1-2 days with symptom improvement.]
[2019-02-11] MEDS: IOPAMIDOL CONTRAST (ORAL USE) VIAL PO PRN ×2 (09:48→10:50)
[2019-02-11 10:48] LABS: HCT 47.6 % (39.0-53.0); HGB 15.8 gm/dL (13.0-17.5); MCH 30.7 pg (25.0-35.0); MCHC 33.2 g/dL (31.0-37.0); MCV 92.6 fL (80.0-100.0); Mean Platelet Volume 7.4; Platelet Count 315 k/uL (150-450); RBC 5.14 m/uL (4.30-5.90); RDW 12.7 % (11.5-15.5); WBC 17.6 k/uL (3.8-10.6)
[2019-02-11 11:50] VITALS: BP 147/88; PULSE 94
--- NOTE | 2019-02-11 12:12 | CT ---
EXAMINATION TYPE: CT abdomen pelvis w con DATE OF EXAM: 02/11/2019 COMPARISON: 02/09/2019 INDICATION: Continued LLQ abdominal pain. DLP: 1705.6 mGycm, Automated exposure control for dose reduction was used. CONTRAST: 100 mL of Isovue 300. Study performed with Oral Contrast TECHNIQUE: Axial images were obtained from above the diaphragm to the pubic rami in the axial plane a t 5 mm thick sections. Reconstructed images are reviewed on the computer in the coronal plane. FINDINGS: Limited CT sections are obtained the lung bases. The lung bases are clear. CT ABDOMEN: Liver: Normal Spleen: Normal Pancreas: Normal Adrenal glands: The adrenal glands are normal. Gallbladder: Normal Kidneys: No masses are evident. No hydronephrosis is present. No cysts are present. Delayed images were obtained through the kidneys, which remain unremarkable. Aorta: Normal Inferior vena cava: Normal. CT PELVIS: There may be some very subtle thickening of the descending colon. Couple of diverticuli are present w ithout acute diverticulitis. Remaining portions of the colon appear normal. There is fecal debris at the level of the distal sigmoid colon and rectum as well as the cecum. No suspicious changes for obst ruction or evident. There are loops of bowel lacking oral contrast limiting their evaluation. Appendix: Normal as visualized. Urinary bladder: Normal. Genitourinary structures: The prostate is normal. Osseous structures: No suspicious lytic or sclerotic lesions. IMPRESSIONS: 1. There may be some minimal wall thickening of the descending colon. 2. Couple of diverticuli without evidence of acute diverticulitis. 3. Acute changes to account for left lower quadrant pain are not otherwise evident. Remainder of the abdomen and pelvis within the [id number] is unremarkable.
[2019-02-11] MEDS: DICYCLOMINE 20 MG TAB PO PRN (15:18)
[2019-02-11] MEDS: SIMETHICONE 80 MG CHEWABLE PO SCH ×2 (15:55→17:53)
[2019-02-11] MEDS ORDERED: HYDROcodone/APAP 10-325MG 1 EACH TAB PO PRN (17:40)
[2019-02-11] MEDS ORDERED: DICYCLOMINE 20 MG TAB PO SCH (22:00)
== END 2019-02-11 18:18 | disposition home or self-care (01) ==
LOC: EC 19:01 → 3SCARD 23:46 → UNDOADMOB 02-10 → 3NMEDONC 02-10 → OBSVTOIN 02-11 13:28 → INTOOBSV 02-11 13:28
PROVIDERS: ADMIT Internal Medicine; ATTEND Internal Medicine
DX: R10.32 Left lower quadrant pain (principal); R19.7 Diarrhea, unspecified; K92.1 Melena; F17.200 Nicotine dependence, unspecified, uncomplicated; F32.9 Major depressive disorder, single episode, unspecified; F41.9 Anxiety disorder, unspecified; G43.909 Migraine, unspecified, not intractable, without status migrainosus; Z79.899 Other long term (current) drug therapy; Z87.01 Personal history of pneumonia (recurrent); Z82.49 Family history of ischemic heart disease and other diseases of the circulatory system; Z84.89 Family history of other specified conditions
CPT/HCPCS: 96376 ×3; 96375 ×2; 96361; 96372; 96374; 99285; 36415; 93005; 80053; 82150; 83605; 83690; 85025; 85027; 86140; 81003; 87040; 87324; 87045; 83630; 87046; 87502; 76700; 74177 ×2; G0378 ×2; J2270 ×3; J0500; J2920 ×2; J2405; J1885 ×2; J1170 ×2; Q9967 ×2

== ENCOUNTER 2019-09-28 18:36 | Emergency (ER) | payer OTHER ==
[2019-09-28 18:52] VITALS: TEMP 98.4
[2019-09-28] MEDS ORDERED: DIPH,PERTUS(ACELL)TETVAC-LF 0.5 ML VIAL IM ONE (19:02)
[2019-09-28] MEDS ORDERED: SODIUM CHLORIDE 0.9% 1,000 ML IV ONE (19:02)
[2019-09-28] MEDS ORDERED: MORPHINE SULFATE 4 MG/ML SYRINGE IVP STA ×2 (19:03→19:56)
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
--- NOTE | 2019-09-28 19:42 | XR ---
Left shoulder HISTORY: Trauma and pain 3 views of left shoulder There is slight superior displacement of the distal clavicle in relation to the acromion. Left lung a pex as visualized is normal. No evident fracture. IMPRESSION: Correlate for acromioclavicular separation.
[2019-09-28 20:26] VITALS: BP 146/96; PULSE 62; RESP 16
== END 2019-09-28 20:19 | disposition home or self-care (01) ==
LOC: EC 18:36
DX: S93.402A Sprain of unspecified ligament of left ankle, initial encounter (principal); S00.01XA Abrasion of scalp, initial encounter; S50.312A Abrasion of left elbow, initial encounter; S80.212A Abrasion, left knee, initial encounter; F41.9 Anxiety disorder, unspecified; F32.9 Major depressive disorder, single episode, unspecified; F17.200 Nicotine dependence, unspecified, uncomplicated; Y93.51 Activity, roller skating (inline) and skateboarding; V86.79XA Person on outside of other special all-terrain or other off-road motor vehicles injured in nontraffic accident, initial encounter; Y92.89 Other specified places as the place of occurrence of the external cause; Z79.899 Other long term (current) drug therapy
CPT/HCPCS: 73030; 73610; 90715; 99284; 96374; 96376; 96361; 90471; J2270

== ENCOUNTER → 2020-07-09 | Outpatient (CLI) | payer OTHER ==
--- NOTE | 2020-07-09 09:41 | FL ---
EXAMINATION TYPE: FL barium swallow DATE OF EXAM: 07/09/2020 CLINICAL HISTORY: Dysphasia TECHNIQUE: A single contrast esophagram is performed utilizing air and barium. A total of 43 second s of fluoroscopic time was utilized during procedure. COMPARISON: None FINDINGS: The esophagus shows normal motility and emptying into the stomach. No evidence of hiatal h ernia or stricture noted. No significant gastroesophageal reflux was seen during real time performanc e of this study. Slight deviation from right to left of the esophagus. IMPRESSION: 1. No significant abnormality is seen to account for patient's symptoms. Questionable mild mass effe ct along the right lateral margin of the upper thoracic esophagus. Correlate with CT scan for further evaluation.
== END | disposition home or self-care (01) ==
LOC: RADXRMAIN 08:55
PROVIDERS: ATTEND Otolaryngology
DX: R47.02 Dysphasia (principal)
CPT/HCPCS: 74220

== ENCOUNTER 2022-07-29 10:23 | Emergency (ER) | payer OTHER ==
[2022-07-29 11:02] VITALS: RESP 18
[2022-07-29 12:30] VITALS: PULSE 78; TEMP 98.9
[2022-07-29 12:51] LABS: Basophils % (A) 0 %; Eosinophils # (A) 0.2 k/uL (0-0.7); Eosinophils % (A) 2 %; HGB 15.2 gm/dL (13.0-17.5); Lymphocytes # (A) 1.8 k/uL (1.0-4.8); Lymphocytes % (A) 28 %; MCH 30.4 pg (25.0-35.0); MCHC 33.8 g/dL (31.0-37.0); Mean Platelet Volume 7.7; Monocytes # (A) 0.4 k/uL (0-1.0); Monocytes % (A) 6 %; Neutrophils % (A) 62 %; Platelet Count 302 k/uL (150-450); WBC 6.4 k/uL (3.8-10.6)
[2022-07-29 12:56] LABS: ALT 40 U/L (4-49); AST 29 U/L (17-59); African American GFR (CKD) >90 (>60 ml/min/1.73 sqM); Albumin 4.3 g/dL (3.5-5.0); Alkaline Phosphatase 85 U/L (38-126); Anion Gap 9 mmol/L; Blood Urea Nitrogen 15 mg/dL (9-20); Calcium 9.1 mg/dL (8.4-10.2); Carbon Dioxide 24 mmol/L (22-30); Chloride 105 mmol/L (98-107); Glucose 91 mg/dL (74-99); Non-African American GFR(CKD) >90 (>60 ml/min/1.73 sqM); Potassium 4.3 mmol/L (3.5-5.1); Sodium 138 mmol/L (137-145); Total Bilirubin 0.7 mg/dL (0.2-1.3); Total Protein 7.3 g/dL (6.3-8.2)
--- NOTE | 2022-07-29 13:05 | ED ---
Abdominal Pain HPI - General Source: patient, RN notes reviewed Mode of arrival: ambulatory Limitations: no limitations <Gurpreet Mendiola - Last Filed: 07/29/22 13:04> - General Source: patient, RN notes reviewed <Andrea Dugan - Last Filed: 07/29/22 22:56> - General Chief Complaint: Abdominal Pain Stated Complaint: Abd pain Time Seen by Provider: 07/29/22 13:04 - History of Present Illness Initial Comments: 41-year-old male presents emergency Department chief complaint left lower quadrant abdominal pain. Patient has history of diverticulitis. Patient states been having increasing severe pain. Patient reports no fever. (Gurpreet Mendiola) Patient is a 41-year-old male with past medical history remarkable for diverticu litis who presents emergency Department complaining of left lower quadrant abdominal pain that has been ongoing for multiple weeks. Worse over the last week. He has also been having some loose nonbloody bowel movements. This is mild nausea but few if any episodes of emesis. Denies any chest pain or shortness of breath. Denies any fevers or chills. No urinary complaints. Presents for further evaluation at this time. Is concerned that he may have diverticulitis. Workup was started in triage via quick note. (Andrea Dugan) - Related Data Previous Rx's Medication Instructions Recorded Amoxic-Pot Clav 875-125Mg 1 tab PO Q8HR 5 Days #15 tab 07/29/22 [Augmentin 875-125] Allergies Allergy/AdvReac Type Severity Reaction Status Date / Time No Known Allergies Allergy Verified 07/29/22 15:51 Review of Systems ROS Other: All systems not noted in ROS Statement are negative. <Gurpreet Mendiola - Last Filed: 07/29/22 13:04> ROS Other: All systems not noted in ROS Statement are negative. <Andrea Dugan - Last Filed: 07/29/22 22:56> ROS Statement: Those systems with pertinent positive or pertinent negative responses have been documented in the HPI. Review of Systems: CONST: Denies fever EYES: Denies blurry vision ENT: Denies nasal congestion C/V: Denies Chest pain RESP: Denies shortness of breath GI: Endorses abdominal pain : Denies dysuria SKIN: Denies rash. MSK: Denies joint pain. NEURO: Denies headache (Andrea Dugan) Past Medical History Past Medical History: No Reported History Additional Past Medical History / Comment(s): heat stroke summer 2013, migraines, diverticulitis History of Any Multi-Drug Resistant Organisms: None Reported Past Surgical History: Orthopedic Surgery, Tonsillectomy Additional Past Surgical History / Comment(s): left foot surgery Past Anesthesia/Blood Transfusion Reactions: No Reported Reaction Past Psychological History: Anxiety, Depression Smoking Status: Current some day smoker Past Alcohol Use History: Occasional Past Drug Use History: None Reported - Past Family History Brother(s) Additional Family Medical History / Comment(s): Lupus Mother Family Medical History: Hypertension Additional Family Medical History / Comment(s): Lupus <Gurpreet Mendiola - Last Filed: 07/29/22 13:04> General Exam Limitations: no limitations General appearance: alert, in no apparent distress <Gurpreet Mendiola - Last Filed: 07/29/22 13:04> <Andrea Dugan - Last Filed: 07/29/22 22:56> - General Exam Comments Initial Comments: Visual Physical Exam Vital signs reviewed General: Well-appearing, nontoxic, no acute distress. Head: Normocephalic, atraumatic Eyes: PERRLA, EOMI ENT: Airway patent Chest: Nonlabored breathing Skin: No visual rash, normal skin tone Neuro: Alert and oriented 3 Musculoskeletal: No gross abnormalities (Gurpreet Mendiola) General: Appears in mild discomfort secondary to abdominal pain. HEAD: Normal with no signs of head trauma. EYES: PERRLA, EOMI, conjunctiva normal, no discharge. ENT: Hearing grossly intact, normal oropharynx. RESPIRATORY: Clear breath sounds bilaterally. No wheezes, rales, or rhonchi. C/V: Regular rate and rhythm. S1 and S2 auscultated, peripheral pulses 2+ and intact throughout ABD: Abdomen soft, nondistended. Tender to palpation in the left lower quadrant. No guarding. No rebound tenderness. No peritoneal signs. Some radiation around to the left flank. EXT: Normal range of motion, no obvious deformity SKIN: No rashes or lesions observed on exposed skin. NEURO: Alert and oriented 4. (Andrea Dugan) Course Vital Signs 07/29/22 07/29/22 07/29/22 10:58 12:27 13:56 Temperature 98.1 F 98.9 F Pulse Rate 74 78 Respiratory 18 Rate Blood Pressure 153/92 130/83 O2 Sat by Pulse 97 94 L 99 Oximetry 07/29/22 07/29/22 07/29/22 14:00 14:15 14:30 Temperature Pulse Rate Respiratory Rate Blood Pressure 145/87 123/75 O2 Sat by Pulse 97 96 94 L Oximetry 07/29/22 14:45 Temperature Pulse Rate Respiratory Rate Blood Pressure 129/87 O2 Sat by Pulse 94 L Oximetry Medical Decision Making - Lab Data Result diagrams: 07/29/22 12:19 07/29/22 12:19 <Gurpreet Mendiola - Last Filed: 07/29/22 13:04> - Lab Data Result diagrams: 07/29/22 12:19 07/29/22 12:19 <Andrea Dugan - Last Filed: 07/29/22 22:56> - Medical Decision Making Was pt. sent in by a medical professional or institution (, PA, CLOUD INFRASTRUCTURE ARCHITECT, urgent care, hospital, or alf...) When possible be specific @ -No Did you speak to anyone other than the patient for history (EMS, parent, family, police, friend...)? What history was obtained from this source @ -No Did you review nursing and triage notes (agree or disagree)? Why? @ -I reviewed and agree with nursing and triage notes Were old charts reviewed (outside hosp., previous admission, EMS record, old EKG, old radiological studies, urgent care reports/EKG's, alf records)? Report findings @ -No old charts were reviewed Differential Diagnosis (chest pain, altered mental status, abdominal pain women, abdominal pain men, vaginal bleeding, weakness, fever, dyspnea, syncope, headache, dizziness, GI bleed, back pain, seizure, CVA, palpatations, mental health, musculoskeletal)? @ -Differential Abdominal Pain Men: Appendicitis, cholecystitis, diverticulosis, ischemic bowel, pancreatitis, hepatitis, UTI, gastroenteritis, AAA, incarcerated hernia, bowel obstruction, constipation, inflammatory bowel, hepatitis, peptic ulcer disease, splenic infarction, perforated viscus, testicular torsion, this is not meant to be an all-inclusive list EKG interpreted by me (3pts min.). @ -None done X-rays interpreted by me (1pt min.). @ -None done CT interpreted by me (1pt min.). @ -CT abdomen and pelvis revealed no obvious acute intra-abdominal process. U/S interpreted by me (1pt. min.). @ -None done What testing was considered but not performed or refused? (CT, X-rays, U/S, labs)? Why? @ -None What meds were considered but not given or refused? Why? @ -None Did you discuss the management of the patient with other professionals (pro fessionals i.e. , PA, CLOUD INFRASTRUCTURE ARCHITECT, lab, RT, psych nurse, perinatal social worker, rn orthopaedics, teacher, community services officer, outsole caser)? Give summary @ -No Was smoking cessation discussed for >3mins.? @ -No Was critical care preformed (if so, how long)? @ -No Were there social determinants of health that impacted care today? How? (Homelessness, low income, unemployed, alcoholism, drug addiction, transporta tion, low edu. Level, literacy, decrease access to med. care, fci, rehab)? @ -No Was there de-escalation of care discussed even if they declined (Discuss DNR or withdrawal of care, Hospice)? DNR status @ -No What co-morbidities impacted this encounter? (DM, HTN, Smoking, COPD, CAD, Cancer, CVA, ARF, Chemo, Hep., AIDS, mental health diagnosis, sleep apnea, morbid obesity)? @ -History of diverticular disease. Was patient admitted / discharged? Hospital course, mention meds given and route, prescriptions, significant lab abnormalities, going to OR and other pertinent info. @ -Based on the patient's presentation and physical exam, presents with upper quadrant pain and with a history of diverticulitis. Workup started as a quick note. Labs are unremarkable. CT shows no evidence of diverticulitis. I did recommend we obtain a urinalysis at this time. He was in agreement this plan. Patient will be symptomatically treated with IV fluids and IV pain medications. Vital signs within acceptable limits. Urinalysis is negative for urinary tract infection. Discussed results with the patient. Is feeling improved at this time. I do not believe he has dive rticulitis at this time, however after discussion we both agreed I will empirically prescribed him Augmentin in case his symptoms continue and he cannot follow up with his doctor. He was in agreement with this plan. I'll provide him with a prescription for Augmentin 3 times a day for 5 days. He will also be given a Tylenol starter pack. Strict return precautions discussed. I will provide the patient with a prescription for Augmentin. I instructed the patient to follow up with their PCP in the next 1-3 days. I explained that the patient should return to the emergency department if they experience any worsening symptoms. Strict return precautions were discussed with the patient. The patient expressed understanding of these instructions. I answered all questions that the patient had. The patient was discharged home in good condition with their prescriptions and follow up information. Undiagnosed new problem with uncertain prognosis? @ -No Drug Therapy requiring intensive monitoring for toxicity (Heparin, Nitro, I nsulin, Cardizem)? @ -No Were any procedures done? @ -No Diagnosis/symptom? @ -Abdominal Pain of unknown etiology, history of diverticulitis Acute, or Chronic, or Acute on Chronic? @ -Acute on chronic Uncomplicated (without systemic symptoms) or Complicated (systemic symptoms)? @ -Complicated Side effects of treatment? @ -No Exacerbation, Progression, or Severe Exacerbation? @ -No Poses a threat to life or bodily function? How? (Chest pain, [place], [place], pneumonia, PE, COPD, DKA, ARF, appy, cholecystitis, CVA, Diverticulitis, Homicidal, Suicidal, threat to staff... and all critical care pts) @ -No (Andrea Dugan) - Lab Data Lab Results 07/29/22 07/29/22 07/29/22 Range/Units 12:19 12:19 12:19 WBC 6.4 (3.8-10.6) k/uL RBC 5.00 (4.30-5.90) m/uL Hgb 15.2 (13.0-17.5) gm/dL Hct 45.0 (39.0-53.0) % MCV 90.0 (80.0-100.0) fL MCH 30.4 (25.0-35.0) pg MCHC 33.8 (31.0-37.0) g/dL RDW 13.0 (11.5-15.5) % Plt Count 302 (150-450) k/uL MPV 7.7 Neutrophils % 62 % Lymphocytes % 28 % Monocytes % 6 % Eosinophils % 2 % Basophils % 0 % Neutrophils # 4.0 (1.3-7.7) k/uL Lymphocytes # 1.8 (1.0-4.8) k/uL Monocytes # 0.4 (0-1.0) k/uL Eosinophils # 0.2 (0-0.7) k/uL Basophils # 0.0 (0-0.2) k/uL Sodium 138 (137-145) mmol/L Potassium 4.3 (3.5-5.1) mmol/L Chloride 105 (98-107) mmol/L Carbon Dioxide 24 (22-30) mmol/L Anion Gap 9 mmol/L BUN 15 (9-20) mg/dL Creatinine 0.65 L (0.66-1.25) mg/dL Est GFR (CKD-EPI)AfAm >90 (>60 ml/min/1.73 sqM) Est GFR (CKD-EPI)NonAf >90 (>60 ml/min/1.73 sqM) Glucose 91 (74-99) mg/dL Plasma Lactic Acid Lexa 0.8 (0.7-2.0) mmol/L Calcium 9.1 (8.4-10.2) mg/dL Total Bilirubin 0.7 (0.2-1.3) mg/dL AST 29 (17-59) U/L ALT 40 (4-49) U/L Alkaline Phosphatase 85 (38-126) U/L Total Protein 7.3 (6.3-8.2) g/dL Albumin 4.3 (3.5-5.0) g/dL Urine Color Urine Appearance (Clear) Urine pH (5.0-8.0) Ur Specific Orient (1.001-1.035) Urine Protein (Negative) Urine Glucose (UA) (Negative) Urine Ketones (Negative) Urine Blood (Negative) Urine Nitrite (Negative) Urine Bilirubin (Negative) Urine Urobilinogen (<2.0) mg/dL Ur Leukocyte Esterase (Negative) 07/29/22 Range/Units 14:22 WBC (3.8-10.6) k/uL RBC (4.30-5.90) m/uL Hgb (13.0-17.5) gm/dL Hct (39.0-53.0) % MCV (80.0-100.0) fL MCH (25.0-35.0) pg MCHC (31.0-37.0) g/dL RDW (11.5-15.5) % Plt Count (150-450) k/uL MPV Neutrophils % % Lymphocytes % % Monocytes % % Eosinophils % % Basophils % % Neutrophils # (1.3-7.7) k/uL Lymphocytes # (1.0-4.8) k/uL Monocytes # (0-1.0) k/uL Eosinophils # (0-0.7) k/uL Basophils # (0-0.2) k/uL Sodium (137-145) mmol/L Potassium (3.5-5.1) mmol/L Chloride (98-107) mmol/L Carbon Dioxide (22-30) mmol/L Anion Gap mmol/L BUN (9-20) mg/dL Creatinine (0.66-1.25) mg/dL Est GFR (CKD-EPI)AfAm (>60 ml/min/1.73 sqM) Est GFR (CKD-EPI)NonAf (>60 ml/min/1.73 sqM) Glucose (74-99) mg/dL Plasma Lactic Acid Lexa (0.7-2.0) mmol/L Calcium (8.4-10.2) mg/dL Total Bilirubin (0.2-1.3) mg/dL AST (17-59) U/L ALT (4-49) U/L Alkaline Phosphatase (38-126) U/L Total Protein (6.3-8.2) g/dL Albumin (3.5-5.0) g/dL Urine Color Light Yellow Urine Appearance Clear (Clear) Urine pH 6.5 (5.0-8.0) Ur Specific Orient >1.050 H (1.001-1.035) Urine Protein Negative (Negative) Urine Glucose (UA) Negative (Negative) Urine Ketones Trace H (Negative) Urine Blood Negative (Negative) Urine Nitrite Negative (Negative) Urine Bilirubin Negative (Negative) Urine Urobilinogen <2.0 (<2.0) mg/dL Ur Leukocyte Esterase Negative (Negative) Disposition <Gurpreet Mendiola - Last Filed: 07/29/22 13:04> Is patient prescribed a controlled substance at d/c from ED?: No Time of Disposition: 15:29 <Andrea Dugan - Last Filed: 07/29/22 22:56> Clinical Impression: Abdominal pain of unknown etiology Disposition: HOME SELF-CARE Condition: Good Instructions (If sedation given, give patient instructions): Abdominal Pain (ED) Prescriptions: Amoxic-Pot Clav 875-125Mg [Augmentin 875-125] 1 tab PO Q8HR 5 Days #15 tab Referrals: Darius Huertas MD [Primary Care Provider] - 1-2 days
--- NOTE | 2022-07-29 13:56 | CT ---
EXAMINATION TYPE: CT abdomen pelvis w con DATE OF EXAM: 07/29/2022 COMPARISON: 02/11/2019 HISTORY: LLQ pain CT DLP: 2319.3 mGycm CONTRAST: CT scan of the abdomen and pelvis is performed without Oral Contrast and with IV Contrast, patient in jected with 100 mL of Isovue 300. FINDINGS: LUNG BASES-: No visible nodule. No infiltrate. LIVER/GB: No calcified gallstones. No space occupying hepatic lesion. Biliary tree is of normal ca liber. PANCREAS: No inflammation. No distinct mass. SPLEEN: No splenic enlargement. No lesion seen. ADRENALS: No nodule. No thickening. KIDNEYS/BLADDER: No hydronephrosis. No nephrolithiasis. No distinct renal mass. Urinary bladder g rossly unremarkable. BOWEL: Normal appendix. Normal bowel caliber. No inflammation. GENITAL ORGANS: No gross abnormality. LYMPH NODES: No greater than 1cm abdominal or pelvic lymph nodes are appreciated. AORTA: No significant abnormality. OSSEOUS STRUCTURES: No significant abnormality is seen. OTHER: No significant additional abnormality is seen. IMPRESSION: 1. No acute process to account for the patient's symptoms.
[2022-07-29] MEDS ORDERED: MORPHINE SULFATE 4 MG/ML SYRINGE IVP STA (14:05)
[2022-07-29 15:01] VITALS: BP 129/87
[2022-07-29 15:04] LABS: Appearance,Urine Clear (Clear); Bilirubin,Urine Negative (Negative); Blood,Urine Negative (Negative); Color,Urine Light Yellow; Glucose,Urine (UA) Negative (Negative); Ketones,Urine Trace (Negative); Leukocyte Esterase,Urine Negative (Negative); Nitrite,Urine Negative (Negative); PH, Urine 6.5 (5.0-8.0); Protein,Urine Negative (Negative); Urobilinogen,Urine <2.0 mg/dL (<2.0)
[2022-07-29 15:10] LABS: Specific Gravity,Urine >1.050 (1.001-1.035)
[2022-07-29] MEDS ORDERED: ACET/COD 300 MG/30 MG STARTER PACK 6 TAB BTL PO STA (15:39)
== END 2022-07-29 16:30 | disposition home or self-care (01) ==
LOC: EC 10:23
DX: R10.32 Left lower quadrant pain (principal); Z86.59 Personal history of other mental and behavioral disorders; F17.200 Nicotine dependence, unspecified, uncomplicated
CPT/HCPCS: 36415; 80053; 83605; 85025; 81003; 74177; 99284; 96374; J2270; Q9967

== ENCOUNTER 2022-10-11 08:44 | Emergency (ER) | payer OTHER ==
[2022-10-11 08:47] VITALS: BP 121/82; PULSE 89; RESP 18; TEMP 98.2
--- NOTE | 2022-10-11 09:03 | ED ---
ENT HPI - General Chief complaint: ENT Stated complaint: ear pain Time Seen by Provider: 10/11/22 08:47 Source: patient, RN notes reviewed Mode of arrival: ambulatory Limitations: no limitations - History of Present Illness Initial comments: 42-year-old male presents emergency Department with chief complaint of right ear pain. Patient states started 3 days ago was started on eardrops states getting better yet. Patient states here just for not going in his ear. Patient denies any fevers chills he states there is some drainage from the ear itself. - Related Data Previous Rx's Medication Instructions Recorded Amoxic-Pot Clav 875-125Mg 1 tab PO Q8HR 5 Days #15 tab 07/29/22 [Augmentin 875-125] Allergies Allergy/AdvReac Type Severity Reaction Status Date / Time No Known Allergies Allergy Verified 10/11/22 08:47 Review of Systems ROS Statement: Those systems with pertinent positive or pertinent negative responses have been documented in the HPI. ROS Other: All systems not noted in ROS Statement are negative. Past Medical History Past Medical History: No Reported History Additional Past Medical History / Comment(s): heat stroke summer 2013, migraines, diverticulitis History of Any Multi-Drug Resistant Organisms: None Reported Past Surgical History: Orthopedic Surgery, Tonsillectomy Additional Past Surgical History / Comment(s): left foot surgery Past Anesthesia/Blood Transfusion Reactions: No Reported Reaction Past Psychological History: Anxiety, Depression Smoking Status: Current some day smoker Past Alcohol Use History: Occasional Past Drug Use History: None Reported - Past Family History Brother(s) Additional Family Medical History / Comment(s): Lupus Mother Family Medical History: Hypertension Additional Family Medical History / Comment(s): Lupus General Exam Limitations: no limitations General appearance: alert, in no apparent distress Head exam: Present: atraumatic, normocephalic, normal inspection Eye exam: Present: normal appearance, PERRL, EOMI. Absent: scleral icterus, conjunctival injection, periorbital swelling ENT exam: Present: normal oropharynx, mucous membranes moist, other (No mastoid tenderness). Absent: normal external ear exam (Swelling and mild erythema with purulent drainage out of the right ear) Neck exam: Present: normal inspection, full ROM. Absent: tenderness, meningismus, lymphadenopathy Respiratory exam: Present: normal lung sounds bilaterally. Absent: respiratory distress, wheezes, rales, rhonchi, stridor Cardiovascular Exam: Present: regular rate, normal rhythm, normal heart sounds. Absent: systolic murmur, diastolic murmur, rubs, gallop, clicks Course Vital Signs 10/11/22 08:44 Temperature 98.2 F Pulse Rate 89 Respiratory 18 Rate Blood Pressure 121/82 O2 Sat by Pulse 99 Oximetry Medical Decision Making - Medical Decision Making Was pt. sent in by a medical professional or institution ([facility], PLATFORM CONSULTANT, urgent care, hospital, or retirement...) When possible be specific @ -No Did you speak to anyone other than the patient for history (EMS, parent, family, police, friend...)? What history was obtained from this source @ -No Did you review nursing and triage notes (agree or disagree)? Why? @ -I reviewed and agree with nursing and triage notes Were old charts reviewed (outside hosp., previous admission, EMS record, old EKG, old radiological studies, urgent care reports/EKG's, retirement records)? Report findings @ -No old charts were reviewed Differential Diagnosis (chest pain, altered mental status, abdominal pain women, abdominal pain men, vaginal bleeding, weakness, fever, dyspnea, syncope, headache, dizziness, GI bleed, back pain, seizure, CVA, palpatations, mental health, musculoskeletal)? @ -Otitis externa, otitis media, mastoiditis EKG interpreted by me (3pts min.). @ -None X-rays interpreted by me (1pt min.). @ -None done CT interpreted by me (1pt min.). @ -None done U/S interpreted by me (1pt. min.). @ -None done What testing was considered but not performed or refused? (CT, X-rays, U/S, labs)? Why? @ -None What meds were considered but not given or refused? Why? @ -None Did you discuss the management of the patient with other professionals (professionals i.e. [facility], PLATFORM CONSULTANT, lab, RT, psych nurse, social group worker, middle school technology teacher, teacher, radio electronics officer, mental health case manager)? Give summary @ -No Was smoking cessation discussed for >3mins.? @ -No Was critical care preformed (if so, how long)? @ -No Were there social determinants of health that impacted care today? How? (Homelessness, low income, unemployed, alcoholism, drug addiction, transportati on, low edu. Level, literacy, decrease access to med. care, fdc, rehab)? @ -No Was there de-escalation of care discussed even if they declined (Discuss DNR or withdrawal of care, Hospice)? DNR status @ -No What co-morbidities impacted this encounter? (DM, HTN, Smoking, COPD, CAD, Cancer, CVA, ARF, Chemo, Hep., AIDS, mental health diagnosis, sleep apnea, morbid obesity)? @ -None Was patient admitted / discharged? Hospital course, mention meds given and route, prescriptions, significant lab abnormalities, going to OR and other pertinent info. @ -Discharge patient has otitis externa patient was recent started on Ciprodex eardrops. ear wick was inserted to the right ear with no complications. Patient will continue Ciprodex eardrops Undiagnosed new problem with uncertain prognosis? @ -No Drug Therapy requiring intensive monitoring for toxicity (Heparin, Nitro, Insulin, Cardizem)? @ -No Were any procedures done? @ -Ear wick right ear placed with WITHOUT complications Diagnosis/symptom? @ -Otitis externa Acute, or Chronic, or Acute on Chronic? @ -Acute Uncomplicated (without systemic symptoms) or Complicated (systemic symptoms)? @ -Uncomplicated Side effects of treatment? @ -No Exacerbation, Progression, or Severe Exacerbation? @ -No Poses a threat to life or bodily function? How? (Chest pain, [place], [place], pneumonia, PE, COPD, DKA, ARF, appy, cholecystitis, CVA, Diverticulitis, Homicidal, Suicidal, threat to staff... and all critical care pts) @ -No Disposition Clinical Impression: Right otitis externa Disposition: HOME SELF-CARE Condition: Stable Instructions (If sedation given, give patient instructions): Swimmer's Ear (ED) Additional Instructions: Please return to the Emergency Department if symptoms worsen or any other concerns. Is patient prescribed a controlled substance at d/c from ED?: No Referrals: Darius Huetras MD [Primary Care Provider] - 1-2 days Time of Disposition: 09:03
== END 2022-10-11 09:26 | disposition home or self-care (01) ==
LOC: EC 08:44
DX: H60.91 Unspecified otitis externa, right ear (principal); F17.200 Nicotine dependence, unspecified, uncomplicated
CPT/HCPCS: 99282

== ENCOUNTER 2024-06-06 11:34 | Emergency (ER) | payer OTHER ==
[2024-06-06 11:40] VITALS: RESP 18
[2024-06-06] MEDS: ORPHENADRINE 30 MG/ML 2 ML VIAL IM STA (12:11)
[2024-06-06] MEDS: HYDROmorphone 1 MG/ML 1 ML SYRINGE IM STA (12:12)
--- NOTE | 2024-06-06 12:56 | ED ---
Neck Injury/Pain HPI - General Chief Complaint: Neck Pain/Injury Stated Complaint: Back Pain, L Arm Numbness Time Seen by Provider: 06/06/24 11:48 Source: RN notes reviewed Mode of arrival: ambulatory Limitations: no limitations - History of Present Illness Initial Comments: 43-year-old male presents emergency department chief complaint of neck pain, les s week or more. He states he woke up this pain he has pain areas from the neck down left arm deep inside to his fingers primarily his thumb, index finger. Patient states he is right-hand dominant denies any weakness associated. He states he has numbness and pain he states he has had multiple massages, chiropractor appointments and urgent care appointment this week he states he is on the stomach. Denies any prior neck surgeries patient denies any chest pain or shortness of breath. - Related Data Home Medications Medication Instructions Recorded Confirmed HYDROcodone/APAP 5-325MG [Nallen 1 tab PO Q6H PRN 06/06/24 06/06/24 5-325] Ibuprofen [Motrin Ib] 600 mg PO Q6H PRN 06/06/24 06/06/24 Meloxicam [Mobic] 7.5 mg PO BID PRN 06/06/24 06/06/24 methocarbamoL [Robaxin-750] 750 mg PO TID PRN 06/06/24 06/06/24 Previous Rx's Medication Instructions Recorded HYDROcodone/APAP 10-325MG [Nallen 1 tab PO Q6HR PRN 3 Days #12 tab 06/06/24 10-325] Lidocaine 5% Patch [Lidoderm] 1 patch TOPICAL DAILY #7 patch 06/06/24 Orphenadrine [Norflex] 100 mg PO Q12H #14 tab 06/06/24 predniSONE 50 mg PO DAILY #5 tab 06/06/24 Allergies Allergy/AdvReac Type Severity Reaction Status Date / Time No Known Allergies Allergy Verified 06/06/24 11:57 Review of Systems ROS Statement: Those systems with pertinent positive or pertinent negative responses have been documented in the HPI. ROS Other: All systems not noted in ROS Statement are negative. Past Medical History Past Medical History: No Reported History Additional Past Medical History / Comment(s): heat stroke summer 2013, migraines, diverticulitis History of Any Multi-Drug Resistant Organisms: None Reported Past Surgical History: Orthopedic Surgery, Tonsillectomy Additional Past Surgical History / Comment(s): left foot surgery Past Anesthesia/Blood Transfusion Reactions: No Reported Reaction Past Psychological History: Anxiety, Depression Smoking Status: Former smoker Past Alcohol Use History: Occasional Past Drug Use History: None Reported - Past Family History Brother(s) Additional Family Medical History / Comment(s): Lupus Mother Family Medical History: Hypertension Additional Family Medical History / Comment(s): Lupus General Exam Limitations: no limitations General appearance: alert, in no apparent distress Head exam: Present: atraumatic, normocephalic, normal inspection Eye exam: Present: normal appearance, PERRL, EOMI. Absent: scleral icterus, conjunctival injection, periorbital swelling ENT exam: Present: normal exam, normal oropharynx, mucous membranes moist Neck exam: Present: normal inspection, tenderness, full ROM. Absent: meningismus, lymphadenopathy Respiratory exam: Present: normal lung sounds bilaterally. Absent: respiratory distress, wheezes, rales, rhonchi, stridor Cardiovascular Exam: Present: regular rate, normal rhythm, normal heart sounds. Absent: systolic murmur, diastolic murmur, rubs, gallop, clicks Extremities exam: Present: other (Upper extremity strength equal bilaterally, neurovascular intact) Back exam: Present: normal inspection, full ROM. Absent: tenderness Course Vital Signs 06/06/24 06/06/24 11:36 13:51 Temperature 97.8 F 97.9 F Pulse Rate 96 92 Respiratory 18 18 Rate Blood Pressure 133/92 144/85 O2 Sat by Pulse 97 99 Oximetry Medical Decision Making - Medical Decision Making Was pt. sent in by a medical professional or institution (, PA, POEM WRITER, urgent care, hospital, or detention...) When possible be specific @ -No Did you speak to anyone other than the patient for history (EMS, parent, family, police, friend...)? What history was obtained from this source @ -No Did you review nursing and triage notes (agree or disagree)? Why? @ -I reviewed and agree with nursing and triage notes Were old charts reviewed (outside hosp., previous admission, EMS record, old EKG, old radiological studies, urgent care reports/EKG's, detention records)? Report findings @ -No old charts were reviewed Differential Diagnosis (chest pain, altered mental status, abdominal pain women, abdominal pain men, vaginal bleeding, weakness, fever, dyspnea, syncope, headache, dizziness, GI bleed, back pain, seizure, CVA, palpatations, mental health, musculoskeletal)? @ -Cervical radiculopathy, muscle spasms, nerve impingement, EKG interpreted by me (3pts min.). @ -None X-rays interpreted by me (1pt min.). @ -None done CT interpreted by me (1pt min.). @ -CT of the cervical spine showed minimal degenerative changes no acute proces s. U/S interpreted by me (1pt. min.). @ -None done What testing was considered but not performed or refused? (CT, X-rays, U/S, labs)? Why? @ -None What meds were considered but not given or refused? Why? @ -None Did you discuss the management of the patient with other professionals (professionals i.e. , PA, POEM WRITER, lab, RT, psych nurse, social media campaign manager, clinical outcomes manager, teacher, classification officer, therapeutic case manager)? Give summary @ -No Was smoking cessation discussed for >3mins.? @ -No Was critical care preformed (if so, how long)? @ -No Were there social determinants of health that impacted care today? How? (Joyce elessness, low income, unemployed, alcoholism, drug addiction, transportation, low edu. Level, literacy, decrease access to med. care, prison, rehab)? @ -No Was there de-escalation of care discussed even if they declined (Discuss DNR or withdrawal of care, Hospice)? DNR status @ -No What co-morbidities impacted this encounter? (DM, HTN, Smoking, COPD, CAD, Cancer, CVA, ARF, Chemo, Hep., AIDS, mental health diagnosis, sleep apnea, morbid obesity)? @ -None Was patient admitted / discharged? Hospital course, mention meds given and route, prescriptions, significant lab abnormalities, going to OR and other pertinent info. @ -Discharge patient has cervical follow-up with orthopedics. Undiagnosed new problem with uncertain prognosis? @ -No Drug Therapy requiring intensive monitoring for toxicity (Heparin, Nitro, Insulin, Cardizem)? @ -No Were any procedures done? @ -No Diagnosis/symptom? @ -Cervical radiculopathy Acute, or Chronic, or Acute on Chronic? @ -Acute Uncomplicated (without systemic symptoms) or Complicated (systemic symptoms)? @ -Uncomplicated Side effects of treatment? @ -No Exacerbation, Progression, or Severe Exacerbation? @ -No Poses a threat to life or bodily function? How? (Chest pain, [place], [place], pneumonia, PE, COPD, DKA, ARF, appy, cholecystitis, CVA, Diverticulitis, Homicidal, Suicidal, threat to staff... and all critical care pts) @ -No Disposition Clinical Impression: Cervical radiculopathy, Muscle spasms of neck Disposition: HOME SELF-CARE Condition: Stable Instructions (If sedation given, give patient instructions): Cervical Radiculopathy (ED) Additional Instructions: Please return to the Emergency Department if symptoms worsen or any other concerns. Prescriptions: Lidocaine 5% Patch [Lidoderm] 1 patch TOPICAL DAILY #7 patch HYDROcodone/APAP 10-325MG [Nallen 10-325] 1 tab PO Q6HR PRN 3 Days #12 tab PRN Reason: pain Orphenadrine [Norflex] 100 mg PO Q12H #14 tab predniSONE 50 mg PO DAILY #5 tab Is patient prescribed a controlled substance at d/c from ED?: Yes When asked, does pt state using other controlled substances?: No If prescribed controlled substance>3 days was MAPS reviewed?: Prescribed <3 Days If opioid is for acute pain is fill amount 7 days or less?: Yes If Rx opioid, was Start Talking consent form obtained?: Yes Referrals: None,Stated [Primary Care Provider] - 1-2 days Len Hanson DO [Doctor of Osteopathic Medicine] - 1-2 days Time of Disposition: 13:46
--- NOTE | 2024-06-06 13:10 | CT ---
EXAMINATION TYPE: CT cervical spine wo con CT DLP: 799.6 mGycm, Automated exposure control for dose reduction was used. DATE OF EXAM: 06/06/2024 1:05 PM COMPARISON: CT cervical spine 05/12/2022, CT brain C-spine 11/14/2018. CLINICAL INDICATION:Male, 43 years old with history of neck pain, left radicular pain; PHH, Neck pain , LT radicular pain, pain TECHNIQUE: Axial CT images from the skull base to the inferior aspect of T2 we obtained without intra venous contrast. Coronal and sagittal reformatted images were also reviewed. FINDINGS: Fracture: None. Osseous structures: Unremarkable Vertebral alignment: Within normal limits. Spinal canal/Neural Foramina: No evidence of significant spinal canal narrowing. No evidence for sign ificant neural foraminal stenosis.Neck soft tissues: Prevertebral soft tissues are within normal limi ts. Other: The airway is patent. The lung apices are clear. Right sphenoid sinus 1.1 cm mucous retention cyst. Mild mucosal thickening of the visualized ethmoid sinuses. Mild mucosal thickening with possibl e partial visualized mucous retention cyst within the left maxillary sinus. Cerumen within the left e xternal auditory canal. IMPRESSION: 1. No evidence of cervical spine fracture. 2. No significant degenerative disc disease. Consider MRI if there is continued clinical concern. [facility], , 06/06/2024 1:07 PM
[2024-06-06 13:52] VITALS: BP 144/85; PULSE 92; TEMP 97.9
== END 2024-06-06 13:52 | disposition home or self-care (01) ==
LOC: EC 11:34
DX: M54.12 Radiculopathy, cervical region (principal); M62.838 Other muscle spasm; Z87.891 Personal history of nicotine dependence
CPT/HCPCS: 72125; 99284; 96372; J2360; J1171